=== PATIENT | female | born 1935 | race Caucasian/White ===

== ENCOUNTER → 2016-11-02 | Outpatient (CLI) | payer MEDICARE, MEDICAID ==
[~2016-11-02] MED LIST: ACET-461 PO; ASP81TEC PO; ATOR40TA70 PO; AZIT250T5 PO; BACL10TA PO; CEFD300C3 PO; CLPD75T PO; CODE118S2 PO; CYCL10TA9 PO; DEXL60CA PO; DICL100G18 TP; FERR-74 PO; GABA-488 PO; INSU100C4 SQ; INSU100I10 SC; INSU100I14 SC; INSU100V16 SQ; METF500T4 PO; METO-270 PO; MTF500T PO; MTP25TSR PO; PANT40TA2 PO; PANT40TA3 PO; PRD10T PO; PRED10TA22 PO; SIMV40TA4 PO
== END ==
LOC: LAB 10:21
PROVIDERS: ATTEND Family Medicine
DX: N39.0 Urinary tract infection, site not specified (principal)
CPT/HCPCS: 87088

== ENCOUNTER → 2016-11-17 | Outpatient (CLI) | payer MEDICARE, MEDICAID ==
--- NOTE | 2016-11-17 12:09 | Diagnostic Imaging Report ---
PROCEDURE: CT abdomen and pelvis without contrast. TECHNIQUE: Multiple contiguous axial images were obtained through the abdomen and pelvis without the use of intravenous contrast. INDICATION: Hematuria. FINDINGS: The lung bases appear clear. The liver, the spleen, and adrenals appear unremarkable for an unenhanced exam. There are multiple calcified gallstones without CT evidence of cholecystitis. The pancreatic parenchyma is largely replaced with fat with no solid mass identified. The kidneys demonstrate no hydronephrosis. There are calcifications near the renal pelvis on both sides that appears to be vascular. Also calcifications in the pelvis are likely phleboliths. Other uterine calcifications could be vascular or related to underlying small fibroids. There is diverticulosis. No diverticulitis. The appendix is slightly thickened at 9 mm in caliber without associated inflammatory changes however to suggest appendicitis. No free fluid or fluid collection in the abdomen or pelvis is seen. The abdominal aorta is slightly ectatic and demonstrates atherosclerotic calcifications with no aneurysm. No para-aortic enlarged lymph nodes seen. The osseous structures demonstrate advanced degenerative changes in the lower lumbar spine and SI joints. Also moderate bilateral hip osteoarthritis is seen. IMPRESSION: 1. No urinary tract stones or hydronephrosis. 2. Diverticulosis. No diverticulitis. 3. Cholelithiasis. Dictated by: Dictated on workstation # [id number]
== END ==
LOC: RAD 11:27
PROVIDERS: ATTEND Urology
DX: R31.9 Hematuria, unspecified (principal); K57.30 Diverticulosis of large intestine without perforation or abscess without bleeding; K80.20 Calculus of gallbladder without cholecystitis without obstruction
CPT/HCPCS: 74176

== ENCOUNTER → 2017-01-24 | Outpatient (CLI) | payer MEDICARE, MEDICAID ==
--- NOTE | 2017-01-24 10:41 | Diagnostic Imaging Report ---
EXAMINATION: Left lower extremity duplex venous ultrasound. TECHNIQUE: DVT protocol. Multiple sonographic images with color Doppler and waveform interrogation were performed of the left lower extremity veins with compression and augmentation maneuvers. INDICATION: Left leg swelling and itching. FINDINGS: The left lower extremity veins from the groin to below the knee veins were examined with normal color-flow, compressibility and waveform demonstrated. The great saphenous vein is patent. IMPRESSION: No evidence of DVT in the left lower extremity. Dictated by: Dictated on workstation # [id number]
== END ==
LOC: RAD 09:40
PROVIDERS: ATTEND Family Medicine
DX: R22.42 Localized swelling, mass and lump, left lower limb (principal); L29.9 Pruritus, unspecified

== ENCOUNTER → 2017-03-08 | Outpatient (CLI) | payer MEDICARE, MEDICAID ==
[~2017-03-08] MED LIST changes: +CATHETER FLUSH 10 ML SYR IV PRN; +REGADENOSON 0.4 MG/5 ML SYR (LEXISCAN) IV ONE
[2017-03-08 09:07] VITALS: BP 131/68
--- NOTE | 2017-03-09 14:29 | STRESS TEST ---
DATE OF SERVICE: PROCEDURE: Resting and post-regadenoson technetium-99m tetrofosmin SPECT CT imaging. ORDERING PHYSICIAN: Ana Lilia Morton MD, ZEB, FACP, FACC PRIMARY CARE PHYSICIAN: Johnny Amin DO CLINICAL DIAGNOSIS: Coronary artery disease. Baseline images were carried out after injection of 9.67 mCi of technetium-99m tetrofosmin. This was followed by 0.4 mg regadenoson and 30 mCi of technetium-99m tetrofosmin for stress imaging. The electrocardiogram showed sinus rhythm at baseline and did not change significantly with the regadenoson infusion. The patient tolerated the procedure well. Review of images at rest and following stress does not indicate any significant perfusion defects consistent with significant myocardial ischemia or infarction. Gated images show normal global left ventricular systolic function with normal regional wall motion. Left ventricular ejection fraction is calculated to be 79%. Left ventricular end-diastolic volume is 34 mL. TID is absent (0.94). CONCLUSIONS: 1. No evidence of any significant myocardial ischemia or infarction on this study. 2. Normal regional wall motion. 3. Normal global left ventricular systolic function with a calculated ejection fraction of 79%. Job ID: [id number] DocumentID: [id number] Dictated Date: 03/08/2017 15:45:01 Loading Dock Helper Date: 03/09/2017 08:30:49 Dictated By: ANA LILIA MORTON MD, ZEB, FACP, FACC,
== END ==
LOC: CARD 06:37
PROVIDERS: ATTEND Internal Medicine Cardiovascular Disease
DX: I25.10 Atherosclerotic heart disease of native coronary artery without angina pectoris (principal); I65.23 Occlusion and stenosis of bilateral carotid arteries; E11.9 Type 2 diabetes mellitus without complications; E78.4 Other hyperlipidemia; I49.5 Sick sinus syndrome; M79.89 Other specified soft tissue disorders
CPT/HCPCS: 78452; 93017

== ENCOUNTER → 2017-04-18 | Outpatient (CLI) | payer MEDICARE, MEDICAID ==
[~2017-04-18] MED LIST changes: -CATHETER FLUSH 10 ML SYR IV PRN; -REGADENOSON 0.4 MG/5 ML SYR (LEXISCAN) IV ONE
--- NOTE | 2017-04-19 14:07 | Diagnostic Imaging Report ---
EXAMINATION: Bilateral screening mammogram 2D views with tomosynthesis. The current study was also evaluated with a Computer Aided Detection (CAD) system. INDICATION: Screening. PERSONAL HISTORY: No current complaints stated on the questionnaire. COMPARISON: 04/16/2016. FINDINGS: The breasts are composed of scattered fibroglandular densities. There are scattered benign-appearing calcifications seen. Allowing for technique and positional differences, no suspicious change is seen. IMPRESSION: No significant change. ACR BI-RADS Category 2: Benign findings. Result letter will be mailed to the patient. Note: At least 10% of breast cancer is not imaged by mammography. Dictated by: Dictated on workstation # [id number]
== END ==
LOC: RAD 09:59
PROVIDERS: ATTEND Family Medicine
DX: Z12.31 Encounter for screening mammogram for malignant neoplasm of breast (principal)
CPT/HCPCS: 77067

== ENCOUNTER → 2017-10-20 | Outpatient (CLI) | payer MEDICARE, MEDICAID ==
[~2017-10-20] MED LIST changes: +ACET-168 PO; +ASCO500T6 PO; +ASPI-808 PO; +ASPI-983 PO; +AZIT250T12 PO; -AZIT250T5 PO; +CEPH-507 PO; +CNC1KV IJ; +CRAN450T9 PO; +DIVA125C10 PO; +DONE5TAB8 PO; +DVL125C PO; +ESTR42.52 VG; -FERR-74 PO; +FERR325T18 PO; +LORA10TA7 PO; +MAGN400O7 PO; +MEMA5TAB PO; -METF500T4 PO; +METF500T5 PO; -METO-270 PO; +METO-387 PO; +NAPR-915 PO; +TRAM50TA2 PO; +TRIM100T PO
--- NOTE | 2017-10-20 13:25 | Diagnostic Imaging Report ---
INDICATION: Fall and right leg pain. TIME OF EXAM: 1:08 PM Frontal and lateral views of the right tibia and fibula were obtained. FINDINGS: There are lateral compartmental degenerative changes of the knee with joint space narrowing and marginal spurring. Tibia and fibula are intact. No fractures are identified. Alignment at the ankle is normal. IMPRESSION: No acute bony abnormality is detected. Dictated by: Dictated on workstation # [id number]
--- NOTE | 2017-10-20 13:26 | Diagnostic Imaging Report ---
INDICATION: Fall and right hip pain. TIME OF EXAM: 1:06 PM FINDINGS: Two views right hip demonstrate normal femoral acetabular alignment. The femoral head and neck are intact. No fractures are seen. Right-sided rami are intact. IMPRESSION: No acute bony abnormality is detected. Dictated by: Dictated on workstation # [id number]
--- NOTE | 2017-10-20 13:29 | Diagnostic Imaging Report ---
INDICATION: Fall with right leg pain. TIME OF EXAM: 1:07 PM FINDINGS: Multiple views of the right femur were obtained. Alignment at the hip and knee is normal. No fracture is seen. There are degenerative changes of the lateral compartment of the knee. There appears to be a knee joint effusion. Soft tissues are unremarkable. IMPRESSION: No acute bony abnormality is detected. There does appear to be knee joint effusion. Dictated by: Dictated on workstation # [id number]
== END ==
LOC: RAD 12:17
PROVIDERS: ATTEND Family Medicine
DX: M79.604 Pain in right leg (principal); M25.551 Pain in right hip; W19.XXXA Unspecified fall, initial encounter
CPT/HCPCS: 73502; 73552; 73590

== ENCOUNTER → 2017-10-23 | Outpatient (CLI) | payer MEDICARE, MEDICAID ==
[2017-10-23 18:39] LABS: BILIRUBIN,URINE NEGATIVE (NEGATIVE); CLARITY,URINE SLIGHTLY CLOUDY; COLOR,URINE YELLOW; GLUCOSE, URINE (UA) NEGATIVE (NEGATIVE); KETONES,URINE NEGATIVE (NEGATIVE); LEUKOCYTE ESTERASE ,URINE 3+ (NEGATIVE); NITRITE,URINE NEGATIVE (NEGATIVE); PH,URINE 5 (5-9); PROTEIN,URINE 1+ (NEGATIVE); UROBILINOGEN,URINE 1 MG/DL (NORMAL)
[2017-10-23 18:50] LABS: BACTERIA,URINE MODERATE /HPF; WBC,URINE 25-50 /HPF
== END ==
LOC: LABNPT 18:31
PROVIDERS: ATTEND Family Medicine
DX: R82.90 Unspecified abnormal findings in urine (principal); R41.0 Disorientation, unspecified
CPT/HCPCS: 81000; 87077; 87088

== ENCOUNTER → 2017-10-26 | Outpatient (CLI) | payer MEDICARE, MEDICAID ==
[2017-10-26 12:42] LABS: HEMOGLOBIN 10.7 G/DL (11.5-16.0); MEAN PLATELET VOLUME 10.9 FL (7.4-10.4); RED BLOOD COUNT 3.82 10^6/uL (4.35-5.85); RED CELL DISTRIBUTION WIDTH 16.2 % (10.0-14.5); WHITE BLOOD COUNT 6.4 10^3/uL (4.3-11.0)
[2017-10-26 13:01] LABS: ALANINE AMINOTRANSFERASE 19 U/L (0-55); ALBUMIN 3.4 GM/DL (3.2-4.5); ALKALINE PHOSPHATASE 132 U/L (40-136); BILIRUBIN,TOTAL 0.5 MG/DL (0.1-1.0); BUN/CREATININE RATIO 20; CALCIUM 9.6 MG/DL (8.5-10.1); CARBON DIOXIDE 26 MMOL/L (21-32); CHLORIDE 102 MMOL/L (98-107); GFR ESTIMATED > 60; GLUCOSE 249 MG/DL (70-105); POTASSIUM 4.1 MMOL/L (3.6-5.0); SODIUM 141 MMOL/L (135-145); TOTAL PROTEIN 6.8 GM/DL (6.4-8.2)
--- NOTE | 2017-10-26 13:22 | Diagnostic Imaging Report ---
PROCEDURE: CT head without contrast. TECHNIQUE: Multiple contiguous axial images were obtained through the brain without the use of intravenous contrast. INDICATION: Altered mental status. COMPARISON: CT head without contrast 10/13/2017. FINDINGS: Stable dfyojidf-sd-prsmtplw generalized cerebral and cerebellar parenchymal volume loss. Moderate leukoaraiosis. No CT evidence of an acute infarct. No intracranial hemorrhage, mass effect, hydrocephalus, or extra-axial fluid collections. Osseous structures are intact. The paranasal sinuses and mastoids are clear. IMPRESSION: No acute intracranial CT findings. Dictated by: Dictated on workstation # [id number]
== END ==
LOC: RAD 12:15
PROVIDERS: ATTEND Family Medicine
DX: R41.82 Altered mental status, unspecified (principal)
CPT/HCPCS: 36415; 70450; 80053; 84443; 85027

== ENCOUNTER 2017-11-16 07:06 | Inpatient (IN) | payer MEDICARE, MEDICAID ==
[~2017-11-16] VITALS: Ht 167.6 cm; Wt 62.3 kg
[~2017-11-16 07:06] MED LIST changes: -ASPI-808 PO; -DIVA125C10 PO; -MAGN400O7 PO; -TRAM50TA2 PO
[2017-11-16 07:38] LABS: BILIRUBIN,URINE NEGATIVE (NEGATIVE); CLARITY,URINE CLEAR; COLOR,URINE YELLOW; GLUCOSE, URINE (UA) NEGATIVE (NEGATIVE); KETONES,URINE NEGATIVE (NEGATIVE); LEUKOCYTE ESTERASE ,URINE 3+ (NEGATIVE); NITRITE,URINE POSITIVE (NEGATIVE); PH,URINE 6 (5-9); PROTEIN,URINE 1+ (NEGATIVE); UROBILINOGEN,URINE NORMAL (NORMAL)
--- NOTE | 2017-11-16 07:43 | ED Fall/Injury ---
General Chief Complaint: Hip/Pelvic Problems Stated Complaint: FALL--RT KNEE & HIP PAIN Nursing Triage Note: c/o pain to right hip. Pt fell from standing position at the senior living. Possible LOC. Pt awake, alert, and active on ER arrival. Source: patient, EMS, senior living records Exam Limitations: no limitations History of Present Illness Date Seen by Provider: November 16, 2017 Time Seen by Provider: 07:07 Initial Comments This 82-year-old woman presents to the emergency room after having a fall at [facility]. She was getting up out of bed and believes she fell onto her walker. She describes feeling lightheaded prior to the fall. She may have experienced brief loss of consciousness as well. She denies striking her head, head pain, or neck pain. She is alert. She is oriented to person, place, and age. She is disoriented to month. She complains of pain in the right knee and right hip. She has abrasions and swelling noted over the right knee. EMS reports her fingerstick blood sugar was 68. Last oral intake was at 18:00 last night. Patient has had recurrent problems with UTI. She had an admission in September for treatment of urinary tract infection. She then was discharged to the senior living and was then transferred to [facility]. She has a slight laceration on the posterior scalp. Respiratory Care Program Director from [facility] states she sometimes has hypoxic episodes since her last admission. Allergies and Home Medications Allergies Coded Allergies: No Known Drug Allergies (Verified , 08/20/15) Home Medications Acetaminophen 500 Mg Tablet, 500 MG PO Q6H PRN for PAIN-MILD, (Reported) Ascorbic Acid 500 Mg Tablet, 500 MG PO DAILY, (Reported) Aspirin 81 Mg Tablet.dr, 81 MG PO DAILY, (Reported) Cranberry Fruit 450 Mg Tablet, 450 MG PO DAILY, (Reported) Cyanocobalamin 1,000 Mcg/Ml Inj, 1,000 MCG IJ Mo, (Reported) Dexlansoprazole 60 Mg bp, 60 MG PO DAILY, (Reported) Divalproex Sodium 125 Mg Cap, 125 MG PO TID Prescribed by: ANSHUL JOSEPH on 10/18/17 1200 Donepezil HCl 5 Mg Tablet, 5 MG PO HS Prescribed by: ANSHUL JOSEPH on 10/18/17 1200 Gabapentin 300 Mg Capsule, 300 MG PO TID, (Reported) Insulin Aspart 100 Unit/1 Ml Susp, SQ BIDAC, (Reported) 60-200 =0 UNITS 201-250=3 UNITS 251-300=5 UNITS 301-350=7 UNITS 351-400=9 UNITS IF GREATER THAN [address] Donna Malhotra,Hum.rec.anlog 100 Unit/1 Ml Insuln.pen, 10 UNITS SC HS, ( Reported) Loratadine 10 Mg Tablet, 10 MG PO DAILY, (Reported) Memantine HCl 5 Mg Tablet, 5 MG PO DAILY Prescribed by: ANSHUL JOSEPH on 10/18/17 1200 Metformin HCl 500 Mg Tablet, 1,000 MG PO BID, (Reported) TAKES 2 (500MG) TABLETS Metoprolol Succinate 25 Mg Tab.er.24h, 25 MG PO DAILY, (Reported) Patient Home Medication List Home Medication List Reviewed: Yes Review of Systems Constitutional: no symptoms reported Eyes: No Symptoms Reported Ears, Nose, Mouth, Throat: no symptoms reported Respiratory: see HPI Cardiovascular: see HPI Gastrointestinal: no symptoms reported Genitourinary: no symptoms reported : No Musculoskeletal: see HPI Skin: no symptoms reported Psychiatric/Neurological: See HPI Past Thozhsg-Bjgesf-Suysdk Hx Patient Social History Alcohol Use: Denies Use Recreational Drug Use: No Former Smoker, Quit: Sep 19, 1997 Recent Foreign Travel: No Contact w/Someone Who Travel: No Recent Infectious Disease Expo: No Recent Hopitalizations: Yes (yes 09/22/17 for uti) Immunizations Up To Date Tetanus Booster (TDap): Unknown PED Vaccines UTD: Yes Date of Pneumonia Vaccine: Mar 15, 2015 Date of Influenza Vaccine: Feb 18, 2015 Seasonal Allergies Seasonal Allergies: No Past Medical History Surgeries: Yes (KNEE SCOPE, CARDIAC CATHS/ ANGIOPLASTY/MULTIPLE STENTS; EGD/ COLONOSCOPY) Section, Coronary Stent, Orthopedic Respiratory: No Cardiac: Yes Chronic Edema/Swelling, Coronary Artery Disease, Heart Attack, High Cholesterol , Hypertension Neurological: Yes Dementia : No Reproductive Disorders: No Sexually Transmitted Disease: No HIV/AIDS: No Genitourinary: Yes (recurrent bladder infections) Gastrointestinal: Yes Gastroesophageal Reflux Musculoskeletal: Yes Arthritis Endocrine: Yes Diabetes, Insulin dep HEENT: Yes Loss of Vision: Bilateral Hearing Impairment: Hard of Hearing Cancer: No Psychosocial: No Integumentary: No Blood Disorders: No Adverse Reaction/Blood Tranf: No Family Medical History Alzheimer's disease 19 MOTHER G8 SISTER Diabetes mellitus G8 BROTHER Parkinson's disease 19 MOTHER Physical Exam Vital Signs Vital Signs - First Documented 11/16/17 07:22 Temp 98.0 Pulse 86 Resp 16 B/P (MAP) 103/53 (70) Pulse Ox 97 O2 Delivery Room Air Capillary Refill : Less Than 3 Seconds General Appearance: WD/WN, no apparent distress HEENT: PERRL/EOMI, normal ENT inspection, pharynx normal, other (tiny laceration/abrasion on the occipital scalp. Small superficial laceration posterior to the right ear lobe.) Neck: non-tender, supple, normal inspection Cardiovascular: regular rate, rhythm, no edema, no murmur Respiratory: lungs clear, normal breath sounds, no respiratory distress, no accessory muscle use Gastrointestinal: normal bowel sounds, non tender, soft Extremities: other (swelling, abrasion, and tenderness to the right knee. Tenderness to the left hip and pain with external rotation of the left hip. Sensation, movement, and capillary refill intact distally.) Neurologic/Psychiatric: ore trimmer II-XII nml as tested, no motor/sensory deficits, alert, normal mood/affect, other (oriented to person, place, and age but not month.) Skin: normal color, warm/dry, other (abrasions and lacerations as above) Walker Coma Score Best Eye Response: (4) Open Spontaneously Best Verbal Response: (5) Oriented Best Motor Response: (6) Obeys Commands Huber Total: 15 Progress/Results/Core Measures Results/Orders Lab Results Laboratory Tests Test 11/16/17 07:30 11/16/17 07:45 11/16/17 07:56 Range/Units Urine Color YELLOW Urine Clarity CLEAR Urine pH 6 5-9 Urine Specific Alden 1.010 L 1.016-1.022 Urine Protein 1+ H NEGATIVE Urine Glucose (UA) NEGATIVE NEGATIVE Urine Ketones NEGATIVE NEGATIVE Urine Nitrite POSITIVE H NEGATIVE Urine Bilirubin NEGATIVE NEGATIVE Urine Urobilinogen NORMAL NORMAL MG/DL Urine Leukocyte Esterase 3+ H NEGATIVE Urine RBC (Auto) NEGATIVE NEGATIVE Urine RBC NONE /HPF Urine WBC 50-100 H /HPF Urine Squamous Epithelial Cells 2-5 /HPF Urine Renal Epithelial Cells 2-5 /HPF Urine Crystals NONE /LPF Urine Bacteria MODERATE H /HPF Urine Casts NONE /LPF Urine Mucus NEGATIVE /LPF Urine Culture Indicated YES Glucometer 71 70-110 MG/DL White Blood Count 4.2 L 4.3-11.0 10^3/uL Red Blood Count 4.18 L 4.35-5.85 10^6/uL Hemoglobin 11.4 L 11.5-16.0 G/DL Hematocrit 37 35-52 % Mean Corpuscular Volume 87 80-99 FL Mean Corpuscular Hemoglobin 27 25-34 PG Mean Corpuscular Hemoglobin Concent 31 L 32-36 G/DL Red Cell Distribution Width 15.8 H 10.0-14.5 % Platelet Count 137 130-400 10^3/uL Mean Platelet Volume 10.9 H 7.4-10.4 FL Neutrophils (%) (Auto) 41 L 42-75 % Lymphocytes (%) (Auto) 47 H 12-44 % Monocytes (%) (Auto) 8 0-12 % Eosinophils (%) (Auto) 4 0-10 % Basophils (%) (Auto) 1 0-10 % Neutrophils # (Auto) 1.7 L 1.8-7.8 X 10^3 Lymphocytes # (Auto) 1.9 1.0-4.0 X 10^3 Monocytes # (Auto) 0.4 0.0-1.0 X 10^3 Eosinophils # (Auto) 0.2 0.0-0.3 10^3/uL Basophils # (Auto) 0.0 0.0-0.1 10^3/uL Sodium Level 142 135-145 MMOL/L Potassium Level 4.0 3.6-5.0 MMOL/L Chloride Level 103 98-107 MMOL/L Carbon Dioxide Level 27 21-32 MMOL/L Anion Gap 12 5-14 MMOL/L Blood Urea Nitrogen 12 7-18 MG/DL Creatinine 0.80 0.60-1.30 MG/DL Estimat Glomerular Filtration Rate > 60 BUN/Creatinine Ratio 15 Glucose Level 73 70-105 MG/DL Calcium Level 9.0 8.5-10.1 MG/DL Magnesium Level 0.9 *L 1.8-2.4 MG/DL Total Bilirubin 0.5 0.1-1.0 MG/DL Aspartate Amino Transf (AST/SGOT) 33 5-34 U/L Alanine Aminotransferase (ALT/SGPT) 11 0-55 U/L Alkaline Phosphatase 85 40-136 U/L Total Protein 6.4 6.4-8.2 GM/DL Albumin 3.3 3.2-4.5 GM/DL Valproic Acid (Depakene) Level 16.2 L 50.0-100.0 UG/ML Micro Results Microbiology 11/16/17 Urine Culture - Preliminary, Resulted Sent To [facility] My Orders Orders - MILI HSIEH MD Cbc With Automated Diff (11/16/17 07:13) Comprehensive Metabolic Panel (11/16/17 07:13) Magnesium (11/16/17 07:13) Ua Culture If Indicated (11/16/17 07:13) Accucheck Stat ONCE (11/16/17 07:13) Saline Lock/Iv-Start (11/16/17 07:13) Ekg Tracing (11/16/17 07:13) Monitor-Rhythm Ecg Trace Only (11/16/17 07:13) Knee, Right, 3 Views (11/16/17 07:13) Pelvis With Right Hip 2-3views (11/16/17 07:13) D5 1/2 Ns 1000 Ml Iv Solution (Dextrose (11/16/17 07:45) Urine Culture (11/16/17 07:30) Ct Head/Cervical Spine Wo (11/16/17 08:04) Ceftriaxone Injection (Rocephin Injectio (11/16/17 08:15) Chest 1 View, Ap/Pa Only (11/16/17 08:15) Dipht,Pertuss(Acell),Tet Adult (Boostrix (11/16/17 08:30) Magnesium 1 Gm/100 Ml Ivpb (Magnesium Barros (11/16/17 09:00) Catheter(Urinary) Care .0300, 1500 (11/16/17 08:59) Valproic Acid (11/16/17 09:00) Medications Given in ED Current Medications Medications Dose Ordered Sig/Ivet Route Start Time Stop Time Status Last Admin Dose Admin Ceftriaxone Sodium 1000 mg/ Sodium Chloride 50 ml @ 100 mls/hr ONCE ONCE IV 11/16/17 08:15 11/16/17 08:44 DC 11/16/17 09:12 100 MLS/HR Dextrose/Sodium Chloride 1,000 ml @ 125 mls/hr Q8H ONCE IV 11/16/17 07:45 11/16/17 15:44 11/16/17 07:50 125 MLS/HR Diphtheria/ Tetanus/Acell Pertussis 0.5 ml ONCE ONCE IM 11/16/17 08:30 11/16/17 08:31 DC 11/16/17 09:12 0.5 ML Magnesium Sulfate/ Dextrose 100 ml @ 100 mls/hr ONCE ONCE IV 11/16/17 09:00 11/16/17 09:59 11/16/17 09:15 100 MLS/HR Vital Signs/I&O 11/16/17 11/16/17 07:22 09:12 Temp 98.0 98.0 Pulse 86 Resp 16 B/P (MAP) 103/53 (70) Pulse Ox 97 O2 Delivery Room Air Blood Pressure Mean: 70 Progress Progress Note : Progress Note Patient was found to have a right hip fracture. Dr. Rollins was consulted for surgical assessment. Patient was also found to have urinary tract infection and hypomagnesemia which may have contributed to her fall. Patient gives a questionable history of syncope and loss of consciousness. I suspect her above conditions along with hypoglycemia contributed to this. Her blood sugar by EMS was only 68 and she had not yet eaten this morning. Patient remained alert throughout her ER stay. She was given Rocephin for treatment of her urinary tract infection. A Boostrix tetanus immunization was administered. 1 g of magnesium sulfate was administered for treatment of hypomagnesemia. A liter of D51/2 normal saline was started running at about 100 mL per hour to maintain her blood sugars. Initial ECG Impression Date: November 16, 2017 Initial ECG Impression Time: 07:58 Initial ECG Rate: 82 Initial ECG Rhythm: Normal Sinus Initial ECG Intervals: Normal Comment Normal sinus rhythm with no ST elevation or depression. No abnormal intervals or axis deviation. Diagnostic Imaging Diagonstic Imaging: CT Plain Films/CT/US/NM/MRI: c-spine Comments CT head and cervical spine viewed by me and report reviewed. See report below: NAME: [facility] REC#: [id number] PT STATUS: REG ER : 1935 PHYSICIAN: MILI HSIEH MD ADMIT DATE: 11/16/17/ER Draft Date of Exam:11/16/17 CT HEAD/CERVICAL SPINE WO PROCEDURE: CT head and CT cervical spine without contrast. TECHNIQUE: Multiple contiguous axial images were obtained through the brain and cervical spine without the use of intravenous contrast. Sagittal and coronal reformations through the cervical spine were then performed. INDICATION: Fall. COMPARISON: Comparison is made with prior head CT from 10/26/2017. FINDINGS: CT head: Ventricles and sulci are consistent with the patient's age. There is moderate periventricular hypodensity noted consistent with senescent change. No sulcal effacement is identified. There is no midline shift. No acute intra-axial or extra-axial hemorrhage is seen. Cisterns are patent. Visualized paranasal sinuses are clear. IMPRESSION: Senescent changes. No acute intracranial process is detected. CT cervical spine: There is reversal of the normal cervical lordotic curvature. Minimal anterolisthesis of C3 on C4 with retrolisthesis of C4 on C5 and C5 on C6 is noted. There is severe degenerative disc disease at C4-C5, C5-C6 and C6-C7 levels with disc space narrowing and marginal spurring. There is multilevel facet arthropathy. No fractures are identified. Prevertebral tissues are normal. Odontoid is intact. IMPRESSION: Cervical spondylosis. No acute bony abnormality is detected. Dictated on workstation # [id number] Dict: 11/16/1737 Trans: 11/16/17 0847 [facility] [id number] Interpreted by: UNRULY TREVIÑO MD Diagonstic Imaging: Xray Plain Films/CT/US/NM/MRI: chest Comments Chest x-ray viewed by me and report reviewed. See report below: NAME: [facility] REC#: [id number] PT STATUS: REG ER : 1935 PHYSICIAN: MILI HSIEH MD ADMIT DATE: 11/16/17/ER Draft Date of Exam:11/16/17 CHEST 1 VIEW, AP/PA ONLY INDICATION: Fall. TIME OF EXAM: 8:40 AM Comparison is made with prior chest radiograph from 10/13/2017. FINDINGS: The heart size is normal. Lungs appear clear. No infiltrate or effusion is seen. There is no pneumothorax. IMPRESSION: No acute abnormality is detected. Dictated on workstation # [id number] Dict: 11/16/17 0829 Trans: 11/16/1737 [id number] Interpreted by: UNRULY TREVIÑO MD Plain Films/CT/US/NM/MRI: pelvis, hip Comments Hip and pelvis x-ray viewed by me and report reviewed. See report below: NAME: [facility] REC#: [id number] PT STATUS: REG ER : 1935 PHYSICIAN: MILI HSIEH MD ADMIT DATE: 11/16/17/ER Draft Date of Exam:11/16/17 PELVIS WITH RIGHT HIP 2-3VIEWS INDICATION: Fall with pelvic pain and right hip pain. Time of exam 8:35 AM Femoral acetabular alignment is normal. There is a lucency extending through the femoral neck subcapital location suggestive of a fracture. No displacement is seen. Rami appear intact. Left hip appears intact. IMPRESSION: Findings consistent with right femoral neck fracture. Dictated on workstation # [id number] Dict: 11/16/17 0832 Trans: 11/16/17 0838 [facility] [id number] Interpreted by: UNRULY TREVIÑO MD Diagonstic Imaging: Xray Plain Films/CT/US/NM/MRI: knee Comments X-ray of the right knee viewed by me and report reviewed. See report below: NAME: [facility] REC#: [id number] PT STATUS: REG ER : 1935 PHYSICIAN: MILI HSIEH MD ADMIT DATE: 11/16/17/ER Draft Date of Exam:11/16/17 KNEE, RIGHT, 3 VIEWS INDICATION: Fall with right knee pain. Time of exam: 8:37 AM 3 views of the right knee demonstrate tricompartmental degenerative change, greatest involving the lateral compartment where there is significant joint space narrowing and marginal spurring. No fracture, dislocation or effusion is detected. There is generalized demineralization. IMPRESSION: Degenerative change. No acute bony abnormality is detected. Dictated on workstation # [id number] Dict: 11/16/17 0831 Trans: 11/16/17 0835 [facility] [id number] Interpreted by: UNRULY TREVIÑO MD Departure Communication (Admissions) Time/Spoke to Admitting Phy: 08:35 Dr. Sanchez Time/Spoke to Consulting Phy: 09:10 Dr. Rollins Impression Primary Impression: Closed right hip fracture Qualified Codes: S72.001A - Fracture of unspecified part of neck of right femur, initial encounter for closed fracture Additional Impressions: Fall on same level Qualified Codes: W18.30XA - Fall on same level, unspecified, initial encounter Urinary tract infection Qualified Codes: N39.0 - Urinary tract infection, site not specified Hypomagnesemia Hypokalemia Laceration of scalp Qualified Codes: S01.01XA - Laceration without foreign body of scalp, initial encounter Abrasion, right knee, initial encounter Syncope Qualified Codes: R55 - Syncope and collapse Disposition: 09 ADMITTED INPATIENT Condition: Improved Admissions Decision to Admit Reason: Admit from ER (Trauma) Decision to Admit/Date: November 16, 2017 Time/Decision to Admit Time: 08:30 Departure-Patient Inst. Referrals: TU SANCHEZ DO (PCP/Family) Primary Care Physician MILI HSIEH MD November 16, 2017 07:43
[2017-11-16] MEDS ORDERED: D5 1/2 NS 1000 ML IV SOLUTION 1,000 ML IV ONE (07:45)
[2017-11-16 07:51] LABS: BACTERIA,URINE MODERATE /HPF; WBC,URINE 50-100 /HPF
[2017-11-16 08:11] LABS: BASOPHILS % (AUTO) 1 % (0-10); EOSINOPHILS # (AUTO) 0.2 10^3/uL (0.0-0.3); EOSINOPHILS % (AUTO) 4 % (0-10); HEMATOCRIT 37 % (35-52); HEMOGLOBIN 11.4 G/DL (11.5-16.0); LYMPHOCYTES # (AUTO) 1.9 X 10^3 (1.0-4.0); LYMPHOCYTES % (AUTO) 47 % (12-44); MEAN CORPUSCULAR HEMOGLOBIN 27 PG (25-34); MEAN CORPUSCULAR HGB CONC 31 G/DL (32-36); MEAN CORPUSCULAR VOLUME 87 FL (80-99); MEAN PLATELET VOLUME 10.9 FL (7.4-10.4); MONOCYTES # (AUTO) 0.4 X 10^3 (0.0-1.0); MONOCYTES % (AUTO) 8 % (0-12); NEUTROPHILS # (AUTO) 1.7 X 10^3 (1.8-7.8); NEUTROPHILS % (AUTO) 41 % (42-75); PLATELET COUNT 137 10^3/uL (130-400); RED BLOOD COUNT 4.18 10^6/uL (4.35-5.85); RED CELL DISTRIBUTION WIDTH 15.8 % (10.0-14.5); WHITE BLOOD COUNT 4.2 10^3/uL (4.3-11.0)
[2017-11-16] MEDS ORDERED: cefTRIAXone INJECTION 1,000 MG in NS (IVPB) 50 ML IV ONE (08:15)
[2017-11-16] MEDS ORDERED: TETANUS,DIPTH,PERTUSS P/F (BOOSTRIX) 0.5 ML VIAL IM ONE (08:30)
[2017-11-16 08:35] LABS: ALANINE AMINOTRANSFERASE 11 U/L (0-55); ALBUMIN 3.3 GM/DL (3.2-4.5); ALKALINE PHOSPHATASE 85 U/L (40-136); BILIRUBIN,TOTAL 0.5 MG/DL (0.1-1.0); BUN/CREATININE RATIO 15; CARBON DIOXIDE 27 MMOL/L (21-32); CHLORIDE 103 MMOL/L (98-107); GFR ESTIMATED > 60; GLUCOSE 73 MG/DL (70-105); SODIUM 142 MMOL/L (135-145); TOTAL PROTEIN 6.4 GM/DL (6.4-8.2)
--- NOTE | 2017-11-16 08:35 | Diagnostic Imaging Report ---
INDICATION: Fall with right knee pain. Time of exam: 8:37 AM 3 views of the right knee demonstrate tricompartmental degenerative change, greatest involving the lateral compartment where there is significant joint space narrowing and marginal spurring. No fracture, dislocation or effusion is detected. There is generalized demineralization. IMPRESSION: Degenerative change. No acute bony abnormality is detected. Dictated by: Dictated on workstation # [id number]
[2017-11-16 08:38] LABS: MAGNESIUM 0.9 MG/DL (1.8-2.4)
--- NOTE | 2017-11-16 08:38 | Diagnostic Imaging Report ---
INDICATION: Fall. TIME OF EXAM: 8:40 AM Comparison is made with prior chest radiograph from 10/13/2017. FINDINGS: The heart size is normal. Lungs appear clear. No infiltrate or effusion is seen. There is no pneumothorax. IMPRESSION: No acute abnormality is detected. Dictated by: Dictated on workstation # [id number]
--- NOTE | 2017-11-16 08:39 | Diagnostic Imaging Report ---
INDICATION: Fall with pelvic pain and right hip pain. Time of exam 8:35 AM Femoral acetabular alignment is normal. There is a lucency extending through the femoral neck subcapital location suggestive of a fracture. No displacement is seen. Rami appear intact. Left hip appears intact. IMPRESSION: Findings consistent with right femoral neck fracture. Dictated by: Dictated on workstation # [id number]
--- NOTE | 2017-11-16 08:47 | Diagnostic Imaging Report ---
PROCEDURE: CT head and CT cervical spine without contrast. TECHNIQUE: Multiple contiguous axial images were obtained through the brain and cervical spine without the use of intravenous contrast. Sagittal and coronal reformations through the cervical spine were then performed. INDICATION: Fall. COMPARISON: Comparison is made with prior head CT from 10/26/2017. FINDINGS: CT head: Ventricles and sulci are consistent with the patient's age. There is moderate periventricular hypodensity noted consistent with senescent change. No sulcal effacement is identified. There is no midline shift. No acute intra-axial or extra-axial hemorrhage is seen. Cisterns are patent. Visualized paranasal sinuses are clear. IMPRESSION: Senescent changes. No acute intracranial process is detected. CT cervical spine: There is reversal of the normal cervical lordotic curvature. Minimal anterolisthesis of C3 on C4 with retrolisthesis of C4 on C5 and C5 on C6 is noted. There is severe degenerative disc disease at C4-C5, C5-C6 and C6-C7 levels with disc space narrowing and marginal spurring. There is multilevel facet arthropathy. No fractures are identified. Prevertebral tissues are normal. Odontoid is intact. IMPRESSION: Cervical spondylosis. No acute bony abnormality is detected. Dictated by: Dictated on workstation # [id number]
[2017-11-16] MEDS ORDERED: MAGNESIUM 1 GM/100 ML IVPB 100 ML IV ONE (09:00)
--- OUTSIDE RECORDS SUMMARY | 2017-11-16 10:03 | XMS REPORT | Continuity of Care Document ---
Author Author [facility] Organization [facility] Address Unknown Phone Unavailable Allergies Active Description Code Type Severity Reaction Onset Reported/Identified Relationship to Patient Clinical Status Yes No Known Drug Allergies [id number] Drug Allergy Unknown N/A 08/20/2015 Medications There is no data. Problems Date Dx Coded Attending Type Code Diagnosis Diagnosed By 09/15/2012 Ot 250.00 DIAB WINSOME WO COMPL, TYPE II OR UNSPEC TY 09/15/2012 Ot 272.4 HYPERLIPIDEMIA NEC/NOS 09/15/2012 Ot 287.5 THROMBOCYTOPENIA NOS 09/15/2012 Ot 414.01 CORONARY ATHEROSCLEROSIS OF [place] CORON 09/15/2012 Ot 414.4 CORONARY ATHEROSCLEROSIS DUE TO CALCIFIE 09/15/2012 Ot 433.10 CAROTID ARTERY OCCLUSION W O CEREBRAL IN 09/15/2012 Ot 530.81 ESOPHAGEAL REFLUX 09/15/2012 Ot V45.82 PERCUTANEOUS TRANSLUM CORON ANGIOPLASTY 09/15/2012 Ot V58.66 LONG-TERM ( CURRENT) USE OF ASPIRIN 09/15/2012 Ot V58.67 LONG-TERM ( CURRENT) USE OF INSULIN 09/15/2012 Ot V58.69 OTH MED,LT, CURRENT USE 05/03/2014 TU SANCHEZ DO Ot V76.12 06/17/2014 TU SANCHEZ DO Ot 723.1 08/12/2014 Ot V76.12 08/12/2014 Ot 414.01 08/12/2014 Ot 433.30 08/12/2014 Ot 396.3 08/12/2014 Ot 397.0 08/12/2014 Ot 414.01 08/12/2014 Ot V76.12 08/12/2014 Ot 433.30 08/12/2014 Ot V76.12 08/12/2014 Ot 719.47 08/12/2014 Ot V76.12 08/12/2014 Ot 414.01 08/12/2014 TU SANCHEZ DO Ot V76.12 08/12/2014 TU SANCHEZ DO Ot V76.12 08/12/2014 TU SANCHEZ DO Ot 723.1 08/15/2014 Ot 041.49 08/15/2014 Ot 250.02 08/15/2014 Ot 275.49 08/15/2014 Ot 276.2 08/15/2014 Ot 401.9 08/15/2014 Ot 412 08/15/2014 Ot 414.01 08/15/2014 Ot 491.21 08/15/2014 Ot 518.81 08/15/2014 Ot 599.0 08/15/2014 Ot 712.36 08/15/2014 Ot 715.96 08/15/2014 Ot 719.41 08/15/2014 Ot 780.97 08/15/2014 Ot E935.2 08/15/2014 Ot V45.82 08/15/2014 Ot V58.67 08/15/2014 Ot 041.49 08/15/2014 Ot 250.02 08/15/2014 Ot 275.49 08/15/2014 Ot 276.2 08/15/2014 Ot 401.9 08/15/2014 Ot 412 08/15/2014 Ot 414.01 08/15/2014 Ot 491.21 08/15/2014 Ot 518.81 08/15/2014 Ot 599.0 08/15/2014 Ot 712.36 08/15/2014 Ot 715.96 08/15/2014 Ot 719.41 08/15/2014 Ot 780.97 08/15/2014 Ot E935.2 08/15/2014 Ot V45.82 08/15/2014 Ot V58.67 08/20/2014 Ot 041.49 OTHER AND UNSPECIFIED ESCHERICHIA COLI [ 08/20/2014 Ot 250.02 DIAB WINSOME WO COMPL, TYPE II OR UNSPEC TY 08/20/2014 Ot 275.49 OTH DISORD/ CALCIUM METABOLISM 08/20/2014 Ot 276.2 ACIDOSIS 08/20/2014 Ot 285.9 ANEMIA NOS 08/20/2014 Ot 401.9 HYPERTENSION NOS 08/20/2014 Ot 412 OLD MYOCARDIAL INFARCT 08/20/2014 Ot 414.01 CORONARY ATHEROSCLEROSIS OF [place] CORON 08/20/2014 Ot 491.21 OBSTR CHRONIC BRONCHITIS, W (ACUTE) EXAC 08/20/2014 Ot 518.81 ACUTE RESPIRATORY FAILURE 08/20/2014 Ot 599.0 URIN TRACT INFECTION NOS 08/20/2014 Ot 712.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-L/LEG 08/20/2014 Ot 715.96 OSTEOARTHROS NOS-L/LEG 08/20/2014 Ot 719.41 JOINT PAIN- SHLDER 08/20/2014 Ot 726.2 SHOULDER REGION DIS NEC 08/20/2014 Ot 780.97 ALTERED MENTAL STATUS 08/20/2014 Ot E935.2 ADV EFF OPIATES 08/20/2014 Ot V45.82 PERCUTANEOUS TRANSLUM CORON ANGIOPLASTY 08/20/2014 Ot V58.67 LONG-TERM ( CURRENT) USE OF INSULIN 11/18/2014 Ot 414.01 11/18/2014 Ot 433.30 11/18/2014 Ot 396.3 11/18/2014 Ot 397.0 11/18/2014 Ot 414.01 11/18/2014 Ot V76.12 11/18/2014 Ot 433.30 11/18/2014 Ot V76.12 11/18/2014 Ot 719.47 11/18/2014 Ot V76.12 11/18/2014 Ot 414.01 11/18/2014 TU SANCHEZ DO Ot V76.12 11/18/2014 TU SANCHEZ DO Ot V76.12 11/18/2014 TU SANCHEZ DO Ot 723.1 12/11/2014 PETROS CLEMONSC, JUNG FACP CCDS Ot 250.00 12/11/2014 PETROS VELÁZQUEZ FACC, JUNG FACP CCDS Ot 414.9 12/11/2014 PETROS VELÁZQUEZ FACC, ALI FACP CCDS Ot 447.9 12/11/2014 PETROS CLEMONSC, JUNG FACP CCDS Ot 530.81 12/13/2014 PETROS CLEMONSC, ALI FACP CCDS Ot 250.00 12/13/2014 PETROS VELÁZQUEZ FACC, ALI FACP CCDS Ot 414.9 12/13/2014 PETROS VELÁZQUEZ FACC, ALI FACP CCDS Ot 447.9 12/13/2014 PETROS CLEMONSC, ALI FACP CCDS Ot 530.81 12/24/2014 PETROS CLEMONSC, ALI FACP CCDS Ot 250.00 12/24/2014 PETROS CLEMONSC, ALI FACP CCDS Ot 414.9 12/24/2014 PETROS CLEMONSC, ALI FACP CCDS Ot 447.9 12/24/2014 PETROS CLEMONSC, ALI FACP CCDS Ot 530.81 04/17/2015 BETHLENDER DO, TU Vyas Ot Z12.31 05/07/2015 BETHLENDER DO, TU Vyas Ot Z12.31 05/20/2015 CECYDER DO, TU Vyas Ot Z12.31 08/20/2015 VJ VILLATORO MD, Ot E11.9 TYPE 2 DIABETES MELLITUS WITHOUT COMPLIC 08/20/2015 SHAUNA VELÁZQUEZ, VJ Nichols K21.0 GASTRO-ESOPHAGEAL REFLUX DISEASE WITH ES 08/20/2015 SHAUNA VELÁZQUEZ, VJ Nichols K29.70 GASTRITIS, UNSPECIFIED, WITHOUT BLEEDING 08/20/2015 SHAUNA VELÁZQUEZ, VJ Ot K64.1 SECOND DEGREE HEMORRHOIDS 09/03/2015 SHAUNA VELÁZQUEZ, VJ Nichols D64.9 09/03/2015 SHAUNA VELÁZQUEZ, VJ Nichols K92.1 09/03/2015 VJ VILLATORO MD, Ot Z01.818 09/22/2015 CASSIE DOPRO S Ot E11.9 09/22/[address] [facility] Ot E78.5 09/22/[address] [facility] S Ot G47.00 09/22/[address] [facility] S Ot I10 09/22/[address] [facility], PRO S Ot I25.10 09/22/[address] [facility], [facility] S Ot I25.2 09/22/[address] [facility], [facility] S Ot J18.9 09/22/[address] [facility], [facility] S Ot J20.9 09/22/[address] [facility], [facility] S Ot M54.2 09/22/[address] [facility], [facility] S Ot M54.9 09/22/[address] [facility], PRO S Ot R09.02 09/22/[address] [facility], [facility] S Ot Z79.4 09/22/[address] [facility], [facility] S Ot Z87.891 09/22/2015 CARND DO, PRO S Ot Z95.5 09/22/[address] [facility] S Ot E11.9 TYPE 2 DIABETES MELLITUS WITHOUT COMPLIC 09/22/2015 HARSHADJUNG , PRO [place] Ot E78.5 HYPERLIPIDEMIA, UNSPECIFIED 09/22/2015 CASSIE PINEDA PRO [place] Ot G47.00 INSOMNIA, UNSPECIFIED 09/22/2015 HARSHAD PRO [place] Ot I10 ESSENTIAL (PRIMARY) HYPERTENSION 09/22/2015 HARSHAD PRO [place] Ot I25.10 ATHSCL HEART DISEASE OF [place] CORONARY 09/22/2015 CARBANNER PRO [place] Ot I25.2 OLD MYOCARDIAL INFARCTION 09/22/2015 CARBANNER PRO [place] Ot J18.9 PNEUMONIA, UNSPECIFIED ORGANISM 09/22/2015 HARSHAD PRO [place] Ot J20.9 ACUTE BRONCHITIS, UNSPECIFIED 09/22/2015 CARBANNER PRO [place] Ot M54.2 CERVICALGIA 09/22/2015 CARBANNER PRO [place] Ot M54.9 09/22/2015 CARBANNER PRO [place] Ot R09.02 HYPOXEMIA 09/22/2015 HARSHAD PRO [place] Ot Z79.4 BELT LACER (CURRENT) USE OF INSULIN 09/22/2015 HARSHAD PRO [place] Ot Z87.891 PERSONAL HISTORY OF NICOTINE DEPENDENCE 09/22/2015 HARSHAD PRO [place] Ot Z95.5 PRESENCE OF CORONARY ANGIOPLASTY IMPLANT 10/01/2015 Ot N28.9 10/02/2015 TU SANCHEZ DO Ot J44.9 10/03/2015 TU SANCHEZ DO Ot J44.9 CHRONIC OBSTRUCTIVE PULMONARY DISEASE, U 10/15/2015 TU SANCHEZ DO Ot E04.1 NONTOXIC SINGLE THYROID NODULE 10/20/2015 TU SANCHEZ DO Ot E04.1 NONTOXIC SINGLE THYROID NODULE 10/22/2015 TU SANCHEZ DO Ot E04.1 NONTOXIC SINGLE THYROID NODULE 10/22/2015 TU SANCHEZ DO Ot E04.1 NONTOXIC SINGLE THYROID NODULE 10/22/2015 [facility] TU PINEDA Ot J44.9 CHRONIC OBSTRUCTIVE PULMONARY DISEASE, U 10/22/2015 Ot N28.9 DISORDER OF KIDNEY AND URETER, UNSPECIFI 10/29/2015 TU SANCHEZ DO Ot E04.1 NONTOXIC SINGLE THYROID NODULE 10/29/2015 TU SANCHEZ DO Ot J44.9 CHRONIC OBSTRUCTIVE PULMONARY DISEASE, U 11/05/2015 TU SANCHEZ DO Ot E04.1 NONTOXIC SINGLE THYROID NODULE 11/06/2015 TU SANCHEZ DO Ot J44.9 CHRONIC OBSTRUCTIVE PULMONARY DISEASE, U 11/11/2015 TU SANCHEZ DO Ot E04.1 NONTOXIC SINGLE THYROID NODULE 11/11/2015 Ot N28.9 DISORDER OF KIDNEY AND URETER, UNSPECIFI 11/13/2015 TU SANCHEZ DO Ot E04.1 NONTOXIC SINGLE THYROID NODULE 11/19/2015 TU SANCHEZ DO Ot E04.1 NONTOXIC SINGLE THYROID NODULE 11/28/2015 TU SANCHEZ DO Ot E04.1 NONTOXIC SINGLE THYROID NODULE 04/16/2016 Ot V76.12 OTH SCREEN MAMMO-MALIGN NEOPLASM OF [place] 04/16/2016 Ot 719.47 JOINT PAIN- ANKLE 04/16/2016 Ot V76.12 OTH SCREEN MAMMO-MALIGN NEOPLASM OF [place] 04/16/2016 Ot 414.01 CORONARY ATHEROSCLEROSIS OF [place] CORON 04/16/2016 TU SANCHEZ DO Ot V76.12 OTH SCREEN MAMMO-MALIGN NEOPLASM OF [place] 04/16/2016 TU SANCHEZ DO Ot V76.12 OTH SCREEN MAMMO-MALIGN NEOPLASM OF [place] 04/16/2016 TU SANCHEZ DO Ot 723.1 CERVICALGIA 04/16/2016 PETROS VELÁZQUEZ FAC, ALI FACP CCDS Ot 250.00 DIAB WINSOME WO COMPL, TYPE II OR UNSPEC TY 04/16/2016 PETROS VELÁZQUEZ FACC, ALI FACP CCDS Ot 414.9 CHR ISCHEMIC HRT DIS NOS 04/16/2016 PETROS VELÁZQUEZ FACC, ALI FACP CCDS Ot 447.9 ARTERIAL DISEASE NOS 04/16/2016 PETROS VELÁZQUEZ FACC, ALI FACP CCDS Ot 530.81 ESOPHAGEAL REFLUX 04/16/2016 TU SANCHEZ DO Ot Z12.31 ENCNTR SCREEN MAMMOGRAM FOR MALIGNANT NE 04/16/2016 VJ VILLATORO MD Ot D64.9 ANEMIA, UNSPECIFIED 04/16/2016 VJ VILLATORO MD Ot K92.1 MELENA 04/16/2016 VJ VILLATORO MD Ot Z01.818 ENCOUNTER FOR OTHER PREPROCEDURAL EXAMIN 04/16/2016 LAURA TU PINEDA Ot J44.9 CHRONIC OBSTRUCTIVE PULMONARY DISEASE, U 04/16/2016 Ot N28.9 DISORDER OF KIDNEY AND URETER, UNSPECIFI 04/16/2016 CECYYULI TU PINEDA Ot E04.1 NONTOXIC SINGLE THYROID NODULE 04/16/2016 CECYYULI TU PINEDA Ot E04.1 NONTOXIC SINGLE THYROID NODULE 04/19/2016 Ot V76.12 OTH SCREEN MAMMO-MALIGN NEOPLASM OF [place] 04/19/2016 Ot 719.47 JOINT PAIN- ANKLE 04/19/2016 Ot V76.12 OTH SCREEN MAMMO-MALIGN NEOPLASM OF [place] 04/19/2016 Ot 414.01 CORONARY ATHEROSCLEROSIS OF [place] CORON 04/19/2016 UT SANCHEZ DO Ot V76.12 OTH SCREEN MAMMO-MALIGN NEOPLASM OF [place] 04/19/2016 CECYYULI TU PINEDA Ot V76.12 OTH SCREEN MAMMO-MALIGN NEOPLASM OF [place] 04/19/2016 TU SANCHEZ DO Ot 723.1 CERVICALGIA 04/19/2016 PETROS VELÁZQUEZ FAC, ALI FACP CCDS Ot 250.00 DIAB WINSOME WO COMPL, TYPE II OR UNSPEC TY 04/19/2016 PETROS VELÁZQUEZ FACC, ALI FACP CCDS Ot 414.9 CHR ISCHEMIC HRT DIS NOS 04/19/2016 PETROS VELÁZQUEZ FACC, ALI FACP CCDS Ot 447.9 ARTERIAL DISEASE NOS 04/19/2016 PETROS VELÁZQUEZ FAC, ALI FACP CCDS Ot 530.81 ESOPHAGEAL REFLUX 04/19/2016 TU SANCHEZ DO Ot Z12.31 ENCNTR SCREEN MAMMOGRAM FOR MALIGNANT NE 04/19/2016 VJ VILLATORO MD Ot D64.9 ANEMIA, UNSPECIFIED 04/19/2016 VJ VILLATORO MD Ot K92.1 MELENA 04/19/2016 VJ VILLATORO MD Ot Z01.818 ENCOUNTER FOR OTHER PREPROCEDURAL EXAMIN 04/19/2016 TU SANCHEZ DO Ot J44.9 CHRONIC OBSTRUCTIVE PULMONARY DISEASE, U 04/19/2016 Ot N28.9 DISORDER OF KIDNEY AND URETER, UNSPECIFI 04/19/2016 TU SANCHEZ DO Ot E04.1 NONTOXIC SINGLE THYROID NODULE 04/19/2016 GELLENDER DO, TU Vyas Ot E04.1 NONTOXIC SINGLE THYROID NODULE 04/19/2016 GELLENDER DO, TU Vyas Ot Z12.31 ENCNTR SCREEN MAMMOGRAM FOR MALIGNANT NE 04/20/2016 GELLENDER DO, TU Vyas Ot Z12.31 ENCNTR SCREEN MAMMOGRAM FOR MALIGNANT NE 04/27/2016 GELLENDER DO, TU Vyas Ot Z12.31 ENCNTR SCREEN MAMMOGRAM FOR MALIGNANT NE 06/22/2016 GELLENDER DO, TU Vyas Ot Z12.31 ENCNTR SCREEN MAMMOGRAM FOR MALIGNANT NE 11/03/2016 GELLENDER DO, TU Vyas Ot N39.0 URINARY TRACT INFECTION, SITE NOT SPECIF 11/23/2016 EMELINA AYERS MD Ot K57.30 DVRTCLOS OF LG INT W/O PERFORATION OR AB 11/23/2016 EMELINA AYERS MD Ot K80.20 CALCULUS OF GALLBLADDER W/O CHOLECYSTITI 11/23/2016 EMELINA AYERS MD Ot R31.9 HEMATURIA, UNSPECIFIED 11/29/2016 GELLENDER DO, TU Lilliam Ot N39.0 URINARY TRACT INFECTION, SITE NOT SPECIF 12/07/2016 EMELINA AYERS MD Ot K57.30 DVRTCLOS OF LG INT W/O PERFORATION OR AB 12/07/2016 EMELINA AYERS MD Ot K80.20 CALCULUS OF GALLBLADDER W/O CHOLECYSTITI 12/07/2016 EMELINA AYERS MD Ot R31.9 HEMATURIA, UNSPECIFIED 12/10/2016 GELLENDER DO, TU Lilliam Ot N39.0 URINARY TRACT INFECTION, SITE NOT SPECIF 12/14/2016 EMELINA AYERS MD Ot K57.30 DVRTCLOS OF LG INT W/O PERFORATION OR AB 12/14/2016 EMELINA AYERS MD Ot K80.20 CALCULUS OF GALLBLADDER W/O CHOLECYSTITI 12/14/2016 EMELINA AYERS MD Ot R31.9 HEMATURIA, UNSPECIFIED 02/16/2017 GELLENDER DO, TU Lilliam Ot L29.9 PRURITUS, UNSPECIFIED 02/16/2017 GELLENDER DO, TU Vyas Ot R22.42 LOCALIZED SWELLING, MASS AND LUMP, LEFT 03/14/2017 PETROS VELÁZUQEZ FACC, ALI FACP CCDS Ot E11.9 TYPE 2 DIABETES MELLITUS WITHOUT COMPLIC 03/14/2017 PETROS VELÁZQUEZ FACC, ALI FACP CCDS Ot E78.4 OTHER HYPERLIPIDEMIA 03/14/2017 PETROS VELÁZQUEZ FACC, ALI FACP CCDS Ot I25.10 ATHSCL HEART DISEASE OF [place] CORONARY 03/14/2017 PETROS VELÁZQUEZ FACC, ALI FACP CCDS Ot I49.5 SICK SINUS SYNDROME 03/14/2017 PETROS VELÁZQUEZ FACC, ALI FACP CCDS Ot I65.23 OCCLUSION AND STENOSIS OF [place] 03/14/2017 PETROS VELÁZQUEZ FACC, ALI FACP CCDS Ot M79.89 OTHER SPECIFIED SOFT TISSUE DISORDERS 03/15/2017 PETROS VELÁZQUEZ FACC, ALI FACP CCDS Ot E11.9 TYPE 2 DIABETES MELLITUS WITHOUT COMPLIC 03/15/2017 PETROS CLEMONSC, ALI FACP CCDS Ot E78.4 OTHER HYPERLIPIDEMIA 03/15/2017 PETROS VELÁZQUEZ FACC, ALI FACP CCDS Ot I25.10 ATHSCL HEART DISEASE OF [place] CORONARY 03/15/2017 PETROS CLEMONSC, ALI FACP CCDS Ot I49.5 SICK SINUS SYNDROME 03/15/[address] [facility] CCDS Ot I65.23 OCCLUSION AND STENOSIS OF [place] 03/15/[address] [facility] FACP CCDS Ot M79.89 OTHER SPECIFIED SOFT TISSUE DISORDERS 03/15/2017 PETROS VELÁZQUEZ FACC, ALI FACP CCDS Ot E11.9 TYPE 2 DIABETES MELLITUS WITHOUT COMPLIC 03/15/2017 PETROS CLEMONSC, ALI FACP CCDS Ot E78.4 OTHER HYPERLIPIDEMIA 03/15/2017 PETROS CLEMONS, ALI FACP CCDS Ot I25.10 ATHSCL HEART DISEASE OF [place] CORONARY 03/15/2017 PETROS CLEMONS, ALI FACP CCDS Ot I49.5 SICK SINUS SYNDROME 03/15/2017 PETROS VELÁZQUEZ FACC, ALI FACP CCDS Ot I65.23 OCCLUSION AND STENOSIS OF [place] 03/15/2017 PETROS VELÁZQUEZ FACC, ALI FACP CCDS Ot M79.89 OTHER SPECIFIED SOFT TISSUE DISORDERS 03/16/2017 PETROS CLEMONSC, ALI FACP CCDS Ot E11.9 TYPE 2 DIABETES MELLITUS WITHOUT COMPLIC 03/16/2017 PETROS CLEMONSC, ALI FACP CCDS Ot E78.4 OTHER HYPERLIPIDEMIA 03/16/2017 PETROS VELÁZQUEZ FACC, ALI FACP CCDS Ot I25.10 ATHSCL HEART DISEASE OF [place] CORONARY 03/16/2017 PETROS VELÁZQUEZ FACC, ALI FACP CCDS Ot I49.5 SICK SINUS SYNDROME 03/16/2017 PETROS VELÁZQUEZ FACC, ALI FACP CCDS Ot I65.23 OCCLUSION AND STENOSIS OF [place] 03/16/2017 PETROS VELÁZQUEZ FACC, ALI FACP CCDS Ot M79.89 OTHER SPECIFIED SOFT TISSUE DISORDERS 03/16/2017 PETROS VELÁZQUEZ FACC, ALI FACP CCDS Ot E11.9 TYPE 2 DIABETES MELLITUS WITHOUT COMPLIC 03/16/2017 PETROS VELÁZQUEZ FACC, ALI FACP CCDS Ot E78.4 OTHER HYPERLIPIDEMIA 03/16/2017 PETROS VELÁZQUEZ FACC, ALI FACP CCDS Ot I25.10 ATHSCL HEART DISEASE OF [place] CORONARY 03/16/2017 PETROS VELÁZQUEZ FACC, ALI FACP CCDS Ot I49.5 SICK SINUS SYNDROME 03/16/2017 PETROS VELÁZQUEZ FACC, ALI FACP CCDS Ot I65.23 OCCLUSION AND STENOSIS OF [place] 03/16/2017 PETROS CLEMONSC, ALI FACP CCDS Ot M79.89 OTHER SPECIFIED SOFT TISSUE DISORDERS 03/31/2017 PETROS VELÁZQUEZ FACC, ALI FACP CCDS Ot E11.9 TYPE 2 DIABETES MELLITUS WITHOUT COMPLIC 03/31/2017 PETROS VELÁZQUEZ FACC, ALI FACP CCDS Ot E78.4 OTHER HYPERLIPIDEMIA 03/31/2017 PETROS CLEMONSC, ALI FACP CCDS Ot I25.10 ATHSCL HEART DISEASE OF [place] CORONARY 03/31/2017 PETROS CLEMONSC, ALI FACP CCDS Ot I49.5 SICK SINUS SYNDROME 03/31/2017 PETROS VELÁZQUEZ FACC, ALI FACP CCDS Ot I65.23 OCCLUSION AND STENOSIS OF [place] 03/31/2017 PETROS VELÁZQUEZ FACC, ALI FACP CCDS Ot M79.89 OTHER SPECIFIED SOFT TISSUE DISORDERS 04/11/2017 PETROS CLEMONSC, ALI FACP CCDS Ot E11.9 TYPE 2 DIABETES MELLITUS WITHOUT COMPLIC 04/11/2017 PETROS CLEMONSC, ALI FACP CCDS Ot E78.4 OTHER HYPERLIPIDEMIA 04/11/2017 PETROS VELÁZQUEZ FACC, ALI FACP CCDS Ot I25.10 ATHSCL HEART DISEASE OF [place] CORONARY 04/11/2017 PETROS VELÁZQUEZ [facility] CCDS Ot I49.5 SICK SINUS SYNDROME 04/11/2017 PETROS VELÁZQUEZ [facility] CCDS Ot I65.23 OCCLUSION AND STENOSIS OF [place]ATER[place] 04/11/2017 PETROS VELÁZQUEZ [facility] CCDS Ot M79.89 OTHER SPECIFIED SOFT TISSUE DISORDERS 04/19/2017 GELLENDER DO, TU Vyas Ot Z12.31 ENCNTR SCREEN MAMMOGRAM FOR MALIGNANT NE 05/10/2017 GELLENDER DO, TU Vyas Ot Z12.31 ENCNTR SCREEN MAMMOGRAM FOR MALIGNANT NE 05/20/2017 GELLENDER DO, TU Vyas Ot Z12.31 ENCNTR SCREEN MAMMOGRAM FOR MALIGNANT NE 09/22/2017 GELLENDER DO, TU Vyas Ot D64.9 ANEMIA, UNSPECIFIED 09/22/2017 GELLENDER DO, TU Vyas Ot E11.9 TYPE 2 DIABETES MELLITUS WITHOUT COMPLIC 09/22/2017 GELLENDER DO, TU Vyas Ot E53.8 DEFICIENCY OF OTHER SPECIFIED B GROUP 09/22/2017 GELLENDER DO, TU Vyas Ot E78.00 PURE HYPERCHOLESTEROLEMIA, UNSPECIFIED 09/22/2017 GELLENDER DO, TU Vyas Ot E83.42 HYPOMAGNESEMIA 09/22/2017 GELLENDER DO, TU Vyas Ot I10 ESSENTIAL (PRIMARY) HYPERTENSION 09/22/2017 [facility] TU Vyas Ot I25.10 ATHSCL HEART DISEASE OF [place] CORONARY 09/22/2017 [facility], TU Vyas Ot I25.2 OLD MYOCARDIAL INFARCTION 09/22/2017 [facility] TU Vyas Ot N39.0 URINARY TRACT INFECTION, SITE NOT SPECIF 09/22/2017 GELLENDER DO, TU Vyas Ot R41.82 ALTERED MENTAL STATUS, UNSPECIFIED 09/22/2017 GELLENDER DO, TU Vyas Ot R53.1 WEAKNESS 09/22/2017 GELLENDER DO, TU Vyas Ot R79.1 ABNORMAL COAGULATION PROFILE 09/22/2017 GELLENDER DO, TU Vyas Ot Z79.4 ALF (CURRENT) USE OF INSULIN 09/22/2017 GELLENDER DO, TU Vyas Ot Z87.891 PERSONAL HISTORY OF NICOTINE DEPENDENCE 09/22/2017 GELLENDER DO, TU Vyas Ot Z95.5 PRESENCE OF CORONARY ANGIOPLASTY IMPLANT 09/22/2017 GELLENDER DO, TU Vyas Ot D64.9 ANEMIA, UNSPECIFIED 09/22/2017 GELLENDER DO, TU Vyas Ot E11.9 TYPE 2 DIABETES MELLITUS WITHOUT COMPLIC 09/22/2017 GELLENDER DO, TU Vyas Ot E53.8 DEFICIENCY OF OTHER SPECIFIED B GROUP 09/22/2017 GELLENDER DO, TU Vyas Ot E78.00 PURE HYPERCHOLESTEROLEMIA, UNSPECIFIED 09/22/2017 GELLENDER DO, TU Vyas Ot E83.42 HYPOMAGNESEMIA 09/22/2017 GELLENDER DO, TU Vyas Ot I10 ESSENTIAL (PRIMARY) HYPERTENSION 09/22/2017 GELLENDER DO, TU Vyas Ot I25.10 ATHSCL HEART DISEASE OF [place] CORONARY 09/22/2017 GELLENDER DO, TU Vyas Ot I25.2 OLD MYOCARDIAL INFARCTION 09/22/2017 GELLENDER DO, TU Vyas Ot N39.0 URINARY TRACT INFECTION, SITE NOT SPECIF 09/22/2017 GELLENDER DO, TU Vyas Ot R41.82 ALTERED MENTAL STATUS, UNSPECIFIED 09/22/2017 GELLENDER DO, TU Vyas Ot R53.1 WEAKNESS 09/22/2017 GELLENDER DO, TU Vyas Ot R79.1 ABNORMAL COAGULATION PROFILE 09/22/2017 GELLENDER DO, TU Vyas Ot Z79.4 ALF (CURRENT) USE OF INSULIN 09/22/2017 GELLENDER DO, TU Vyas Ot Z87.891 PERSONAL HISTORY OF NICOTINE DEPENDENCE 09/22/2017 GELLENDER DO, TU Vyas Ot Z95.5 PRESENCE OF CORONARY ANGIOPLASTY IMPLANT 10/18/2017 GELLENDER DO, TU Vyas Ot D63.8 ANEMIA IN OTHER CHRONIC DISEASES CLASSIF 10/18/2017 GELLENDER DO, TU Vyas Ot D69.6 THROMBOCYTOPENIA, UNSPECIFIED 10/18/2017 GELLENDER DO, TU Vyas Ot E11.9 TYPE 2 DIABETES MELLITUS WITHOUT COMPLIC 10/18/2017 GELLENDER DO, TU Vyas Ot E53.8 DEFICIENCY OF OTHER SPECIFIED B GROUP 10/18/2017 GELLENDER DO, TU Vyas Ot E78.00 PURE HYPERCHOLESTEROLEMIA, UNSPECIFIED 10/18/2017 GELLENDER DO, TU Vyas Ot E83.42 HYPOMAGNESEMIA 10/18/2017 GELLENDER DO, TU Vyas Ot F02.81 DEMENTIA IN OTH DISEASES CLASSD ELSWHR W 10/18/2017 GELLENDER DO, TU Vyas Ot F03.90 UNSPECIFIED DEMENTIA WITHOUT BEHAVIORAL 10/18/2017 GELLENDER DO, TU Vyas Ot G30.9 ALZHEIMER'S DISEASE, UNSPECIFIED 10/18/2017 GELLENDER DO, TU Vyas Ot H91.90 UNSPECIFIED HEARING LOSS, UNSPECIFIED EA 10/18/2017 GELLENDER DO, TU Vyas Ot I10 ESSENTIAL (PRIMARY) HYPERTENSION 10/18/2017 GELLENDER DO, TU Vyas Ot I25.10 ATHSCL HEART DISEASE OF [place] CORONARY 10/18/2017 GELLENDER DO, TU Vyas Ot I25.2 OLD MYOCARDIAL INFARCTION 10/18/2017 GELLENDER DO, TU Vyas Ot K21.9 GASTRO-ESOPHAGEAL REFLUX DISEASE WITHOUT 10/18/2017 GELLENDER DO, TU Vyas Ot M19.91 PRIMARY OSTEOARTHRITIS, UNSPECIFIED SITE 10/18/2017 GELLENDER DO, TU Vyas Ot N39.0 URINARY TRACT INFECTION, SITE NOT SPECIF 10/18/2017 GELLENDER DO, TU Vyas Ot R41.82 ALTERED MENTAL STATUS, UNSPECIFIED 10/18/2017 GELLENDER DO, TU Vyas Ot S00.11XA CONTUSION OF RIGHT EYELID AND PERIOCULAR 10/18/2017 GELLENDER DO, TU Vyas Ot S00.12XA CONTUSION OF LEFT EYELID AND PERIOCULAR 10/18/2017 GELLENDER DO, TU Vyas Ot W18.30XA FALL ON SAME LEVEL, UNSPECIFIED, INITIAL 10/18/2017 GELLENDER DO, TU Vyas Ot Y92.[address] 10/18/2017 GELLENDER DO, TU Vyas Ot Z66 DO NOT RESUSCITATE 10/18/2017 GELLENDER DO, TU Vyas Ot Z79.4 BELT LACER (CURRENT) USE OF INSULIN 10/18/2017 GELLENDER DO, TU Vyas Ot Z87.891 PERSONAL HISTORY OF NICOTINE DEPENDENCE 10/18/2017 GELLENDER DO, TU Vyas Ot Z95.5 PRESENCE OF CORONARY ANGIOPLASTY IMPLANT 10/21/2017 GELLENDER DO, TU Vyas Ot M25.551 PAIN IN RIGHT HIP 10/21/2017 GELLENDER DO, TU Vyas Ot M79.604 PAIN IN RIGHT LEG 10/21/2017 GELLENDER DO, TU Vyas Ot W19.XXXA UNSPECIFIED FALL, INITIAL ENCOUNTER 10/25/2017 GELLENDER DO, TU Vyas Ot R41.0 DISORIENTATION, UNSPECIFIED 10/25/2017 GELLENDER DO, TU Vyas Ot R82.90 UNSPECIFIED ABNORMAL FINDINGS IN URINE 10/26/2017 Ot 414.01 CORONARY ATHEROSCLEROSIS OF [place] CORON 10/26/2017 LAURA PINEDATU Ot V76.12 OTH SCREEN MAMMO-MALIGN NEOPLASM OF [place] 10/26/2017 LAURA PINEDA TU Vyas Ot V76.12 OTH SCREEN MAMMO-MALIGN NEOPLASM OF [place] 10/26/2017 LAURA PINEDA TU Vyas Ot 723.1 CERVICALGIA 10/26/2017 PETROS VELÁZQUEZ [facility], ALI FACP CCDS Ot 250.00 DIAB WINSOME WO COMPL, TYPE II OR UNSPEC TY 10/26/2017 PETROS VELÁZQUEZ [facility], ALI FACP CCDS Ot 414.9 CHR ISCHEMIC HRT DIS NOS 10/26/2017 PETROS VELÁZQUEZ [facility], ALI FACP CCDS Ot 447.9 ARTERIAL DISEASE NOS 10/26/2017 PETROS VELÁZQUEZ [facility], ALI FACP CCDS Ot 530.81 ESOPHAGEAL REFLUX 10/26/2017 LAURA PINEDATU Ot Z12.31 ENCNTR SCREEN MAMMOGRAM FOR MALIGNANT NE 10/26/2017 VJ VILLATORO MD Ot D64.9 ANEMIA, UNSPECIFIED 10/26/2017 VJ VILLATORO MD Ot K92.1 MELENA 10/26/2017 VJ VILLATORO MD Ot Z01.818 ENCOUNTER FOR OTHER PREPROCEDURAL EXAMIN 10/26/2017 LAURA PINEDATU Ot J44.9 CHRONIC OBSTRUCTIVE PULMONARY DISEASE, U 10/26/2017 Ot N28.9 DISORDER OF KIDNEY AND URETER, UNSPECIFI 10/26/2017 LAURA PINEDATU Ot E04.1 NONTOXIC SINGLE THYROID NODULE 10/26/2017 LAURA PINEDATU Ot E04.1 NONTOXIC SINGLE THYROID NODULE 10/26/2017 LAURA PINEDATU Ot Z12.31 ENCNTR SCREEN MAMMOGRAM FOR MALIGNANT NE 10/26/2017 LAURA PINEDATU Ot N39.0 URINARY TRACT INFECTION, SITE NOT SPECIF 10/26/2017 EMELINA AYERS MD, Ot K57.30 DVRTCLOS OF LG INT W/O PERFORATION OR AB 10/26/2017 EMELINA AYERS MD Ot K80.20 CALCULUS OF GALLBLADDER W/O CHOLECYSTITI 10/26/2017 EMELINA AYERS MD Ot R31.9 HEMATURIA, UNSPECIFIED 10/26/2017 GELLENDER DO, TU Vyas Ot L29.9 PRURITUS, UNSPECIFIED 10/26/2017 GELLENDER DO, TU Vyas Ot R22.42 LOCALIZED SWELLING, MASS AND LUMP, LEFT 10/26/2017 PETROS VELÁZQUEZ [facility], ALI FACP CCDS Ot E11.9 TYPE 2 DIABETES MELLITUS WITHOUT COMPLIC 10/26/2017 PETROS VELÁZQUEZ [facility], ALI FACP CCDS Ot E78.4 OTHER HYPERLIPIDEMIA 10/26/2017 PETROS CLEMONS, ALI FACP CCDS Ot I25.10 ATHSCL HEART DISEASE OF [place] CORONARY 10/26/2017 PETROS VELÁZQUEZ [facility], ALI FACP CCDS Ot I49.5 SICK SINUS SYNDROME 10/26/2017 PETROS VELÁZQUEZ [facility], ALI FACP CCDS Ot I65.23 OCCLUSION AND STENOSIS OF BILATERAL [place] 10/26/2017 PETROS VELÁZQUEZ [facility], ALI FACP CCDS Ot M79.89 OTHER SPECIFIED SOFT TISSUE DISORDERS 10/26/2017 GELLENDER DO, TU Vyas Ot Z12.31 ENCNTR SCREEN MAMMOGRAM FOR MALIGNANT NE 10/26/2017 GELLENDER DO, TU Vyas Ot M25.551 PAIN IN RIGHT HIP 10/26/2017 GELLENDER DO, TU Vyas Ot M79.604 PAIN IN RIGHT LEG 10/26/2017 GELLENDER DO, TU Vyas Ot W19.XXXA UNSPECIFIED FALL, INITIAL ENCOUNTER 10/26/2017 GELLENDER DO, TU Vyas Ot R41.0 DISORIENTATION, UNSPECIFIED 10/26/2017 GELLENDER DO, TU Vyas Ot R82.90 UNSPECIFIED ABNORMAL FINDINGS IN URINE 10/27/2017 GELLENDER DO, TU Vyas Ot R41.82 ALTERED MENTAL STATUS, UNSPECIFIED 10/30/2017 GELLENDER DO, TU Vyas Ot R41.0 DISORIENTATION, UNSPECIFIED 10/30/2017 GELLENDER DO, TU Vyas Ot R82.90 UNSPECIFIED ABNORMAL FINDINGS IN URINE 11/09/2017 GELLENDER DO, TU Vyas Ot M25.551 PAIN IN RIGHT HIP 11/09/2017 GELLENDER DO, TU Vyas Ot M79.604 PAIN IN RIGHT LEG 11/09/2017 GELLENDER DO, TU Vyas Ot W19.XXXA UNSPECIFIED FALL, INITIAL ENCOUNTER Procedures Code Description Performed By Performed On 81.91 ARTHROCENTESIS 08/12/2014 80.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 08/13/2014 Results Test Result Range Bacterial urine culture - 11/02/16 10:40 Bacterial urine culture [id number] NRG COLONY COUNT >100,000/ML NR FTX;REPORTABLE SENSITIVITY REPORTED AT 0918, 11-04-16 NR Bacterial susceptibility panel - 11/02/16 10:40 Gentamicin susceptibility test by minimum inhibitory concentration < = NRG Trimethoprim/sulfamethoxazole susceptibility test by minimum inhibitoryconcentration <= NRG Ampicillin susceptibility test by minimum inhibitory concentration > = NRG Tobramycin susceptibility test by minimum inhibitory concentration < = NRG Cefazolin susceptibility test by minimum inhibitory concentration 8 NRG Ceftriaxone susceptibility test by minimum inhibitory concentration <= NRG Ampicillin/sulbactam susceptibility test by minimum inhibitory concentration 16 NRG Piperacillin/tazobactam susceptibility test by minimum inhibitory concentration <= NRG Ciprofloxacin susceptibility test by minimum inhibitory concentration >= NRG Meropenem susceptibility test by minimum inhibitory concentration < = NRG Nitrofurantoin susceptibility test by minimum inhibitory concentration <= NRG Aztreonam susceptibility test by minimum inhibitory concentration < = NRG Extended spectrum beta lactamase (ESBL) producing bacteria susceptibility test by minimum inhibitory concentration - NRG Complete blood count (CBC) with automated white blood cell (WBC) differential - 09/19/17 22:44 Blood leukocytes automated count (number/volume) 6.1 10*3/uL 4.3-11.0 Blood erythrocytes automated count (number/volume) 3.65 10*6/uL 4.35-5.85 Venous blood hemoglobin measurement (mass/volume) 10.5 g/dL 11.5-16.0 Blood hematocrit (volume fraction) 33 % 35-52 Automated erythrocyte mean corpuscular volume 89 [foz_us] 80-99 Automated erythrocyte mean corpuscular hemoglobin (mass per erythrocyte) 29 pg 25-34 Automated erythrocyte mean corpuscular hemoglobin concentration measurement ( mass/volume) 32 g/dL 32-36 Automated erythrocyte distribution width ratio 16.3 % 10.0-14.5 Automated blood platelet count (count/volume) 148 10*3/uL 130-400 Automated blood platelet mean volume measurement 10.8 [foz_us] 7.4-10.4 Automated blood neutrophils/100 leukocytes 53 % 42-75 Automated blood lymphocytes/100 leukocytes 34 % 12-44 Blood monocytes/100 leukocytes 12 % 0-12 Automated blood eosinophils/100 leukocytes 1 % 0-10 Automated blood basophils/100 leukocytes 1 % 0-10 Blood neutrophils automated count (number/volume) 3.2 10*3 1.8-7.8 Blood lymphocytes automated count (number/volume) 2.1 10*3 1.0-4.0 Blood monocytes automated count (number/volume) 0.7 10*3 0.0-1.0 Automated eosinophil count 0.1 10*3/uL 0.0-0.3 Automated blood basophil count (count/volume) 0.0 10*3/uL 0.0-0.1 PT panel in platelet poor plasma by coagulation assay - 09/19/17 22:44 Prothrombin time (PT) in platelet poor plasma by coagulation assay 17.7 s 12.2-14.7 INR in platelet poor plasma or blood by coagulation assay 1.5 0.8-1.4 Activated partial thromboplastin time (aPTT) in platelet poor plasma bycoagulation assay - 09/19/17 22:44 Activated partial thromboplastin time (aPTT) in platelet poor plasma bycoagulation assay 39 s 24-35 Comprehensive metabolic panel - 09/19/17 22:44 Serum or plasma sodium measurement (moles/volume) 142 mmol/L 135-145 Serum or plasma potassium measurement (moles/volume) 4.2 mmol/L 3.6-5.0 Serum or plasma chloride measurement (moles/volume) 108 mmol/L 98-107 Carbon dioxide 20 mmol/L 21-32 Serum or plasma anion gap determination (moles/volume) 14 mmol/L 5-14 Serum or plasma urea nitrogen measurement (mass/volume) 12 mg/dL 7-18 Serum or plasma creatinine measurement (mass/volume) 0.79 mg/dL 0.60-1.30 Serum or plasma urea nitrogen/creatinine mass ratio 15 NRG Serum or plasma creatinine measurement with calculation of estimated glomerular filtration rate > NRG Serum or plasma glucose measurement (mass/volume) 185 mg/dL 70-105 Serum or plasma calcium measurement (mass/volume) 8.9 mg/dL 8.5-10.1 Serum or plasma total bilirubin measurement (mass/volume) 0.8 mg/dL 0.1-1.0 Serum or plasma alkaline phosphatase measurement (enzymatic activity/volume) 101 U/L 40-136 Serum or plasma aspartate aminotransferase measurement (enzymatic activity/ volume) 48 U/L 5-34 Serum or plasma alanine aminotransferase measurement (enzymatic activity/volume ) 18 U/L 0-55 Serum or plasma protein measurement (mass/volume) 6.4 g/dL 6.4-8.2 Serum or plasma albumin measurement (mass/volume) 3.2 g/dL 3.2-4.5 Serum or plasma troponin i.cardiac measurement (mass/volume) - 09/19/17 22:44 Serum or plasma troponin i.cardiac measurement (mass/volume) < ng/ mL <0.30 Capillary blood glucose measurement by glucometer (mass/volume) - 09/19/17 22: 58 Capillary blood glucose measurement by glucometer (mass/volume) 160 mg/dL 70-110 Complete urinalysis with reflex to culture - 09/19/17 23:26 Urine color determination YELLOW NRG Urine clarity determination SLIGHTLY CLOUDY NRG Urine pH measurement by test strip 5 5-9 Specific gravity of urine by test strip 1.020 1.016- 1.022 Urine protein assay by test strip, semi-quantitative 2+ NEGATIVE Urine glucose detection by automated test strip NEGATIVE NEGATIVE Erythrocytes detection in urine sediment by light microscopy 5+ NEGATIVE Urine ketones detection by automated test strip 3+ NEGATIVE Urine nitrite detection by test strip POSITIVE NEGATIVE Urine total bilirubin detection by test strip NEGATIVE NEGATIVE Urine urobilinogen measurement by automated test strip (mass/volume) NORMAL NORMAL Urine leukocyte esterase detection by dipstick 3+ NEGATIVE Automated urine sediment erythrocyte count by microscopy (number/high power field) [HPF] NRG Automated urine sediment leukocyte count by microscopy (number/high power field ) > [HPF] NRG Bacteria detection in urine sediment by light microscopy LARGE NRG Squamous epithelial cells detection in urine sediment by light microscopy 0-2 NRG Crystals detection in urine sediment by light microscopy NONE NRG Casts detection in urine sediment by light microscopy NONE NRG Mucus detection in urine sediment by light microscopy NEGATIVE NRG Complete urinalysis with reflex to culture YES NRG Bacterial urine culture - 09/19/17 23:26 Bacterial urine culture [id number] NRG COLONY COUNT <10,000 NRG FTX;REPORTABLE SENSITIVITY REPORTED AT 0812, 4-18 NRG Bacterial susceptibility panel - 09/19/17 23:26 Gentamicin susceptibility test by minimum inhibitory concentration < = NRG Trimethoprim/sulfamethoxazole susceptibility test by minimum inhibitoryconcentration >= NRG Ampicillin susceptibility test by minimum inhibitory concentration > = NRG Tobramycin susceptibility test by minimum inhibitory concentration < = NRG Cefazolin susceptibility test by minimum inhibitory concentration < = NRG Ceftriaxone susceptibility test by minimum inhibitory concentration <= NRG Ampicillin/sulbactam susceptibility test by minimum inhibitory concentration I NRG Piperacillin/tazobactam susceptibility test by minimum inhibitory concentration S NRG Ciprofloxacin susceptibility test by minimum inhibitory concentration >= NRG Meropenem susceptibility test by minimum inhibitory concentration < = NRG Nitrofurantoin susceptibility test by minimum inhibitory concentration <= NRG Aztreonam susceptibility test by minimum inhibitory concentration < = NRG Extended spectrum beta lactamase (ESBL) producing bacteria susceptibility test by minimum inhibitory concentration - NRG Blood lactic acid measurement (moles/volume) - 09/20/17 02:45 Blood lactic acid measurement (moles/volume) 2.57 mmol/L 0.50-2.00 Bacterial blood culture - 09/20/17 02:45 Bacterial blood culture NG NRG Bacterial blood culture - 09/20/17 02:50 Bacterial blood culture NG NRG Complete blood count (CBC) with automated white blood cell (WBC) differential - 09/20/17 05:25 Blood leukocytes automated count (number/volume) 4.4 10*3/uL 4.3-11.0 Blood erythrocytes automated count (number/volume) 3.18 10*6/uL 4.35-5.85 Venous blood hemoglobin measurement (mass/volume) 9.0 g/dL 11.5-16.0 Blood hematocrit (volume fraction) 28 % 35-52 Automated erythrocyte mean corpuscular volume 89 [foz_us] 80-99 Automated erythrocyte mean corpuscular hemoglobin (mass per erythrocyte) 28 pg 25-34 Automated erythrocyte mean corpuscular hemoglobin concentration measurement ( mass/volume) 32 g/dL 32-36 Automated erythrocyte distribution width ratio 16.3 % 10.0-14.5 Automated blood platelet count (count/volume) 114 10*3/uL 130-400 Automated blood platelet mean volume measurement 10.9 [foz_us] 7.4-10.4 Automated blood neutrophils/100 leukocytes 43 % 42-75 Automated blood lymphocytes/100 leukocytes 41 % 12-44 Blood monocytes/100 leukocytes 13 % 0-12 Automated blood eosinophils/100 leukocytes 2 % 0-10 Automated blood basophils/100 leukocytes 1 % 0-10 Blood neutrophils automated count (number/volume) 1.9 10*3 1.8-7.8 Blood lymphocytes automated count (number/volume) 1.8 10*3 1.0-4.0 Blood monocytes automated count (number/volume) 0.6 10*3 0.0-1.0 Automated eosinophil count 0.1 10*3/uL 0.0-0.3 Automated blood basophil count (count/volume) 0.0 10*3/uL 0.0-0.1 Whole blood basic metabolic panel - 09/20/17 05:25 Serum or plasma sodium measurement (moles/volume) 145 mmol/L 135-145 Serum or plasma potassium measurement (moles/volume) 3.8 mmol/L 3.6-5.0 Serum or plasma chloride measurement (moles/volume) 114 mmol/L 98-107 Carbon dioxide 19 mmol/L 21-32 Serum or plasma anion gap determination (moles/volume) 12 mmol/L 5-14 Serum or plasma urea nitrogen measurement (mass/volume) 10 mg/dL 7-18 Serum or plasma creatinine measurement (mass/volume) 0.66 mg/dL 0.60-1.30 Serum or plasma urea nitrogen/creatinine mass ratio 15 NRG Serum or plasma creatinine measurement with calculation of estimated glomerular filtration rate > NRG Serum or plasma glucose measurement (mass/volume) 117 mg/dL 70-105 Serum or plasma calcium measurement (mass/volume) 8.1 mg/dL 8.5-10.1 Serum or plasma lactate measurement (moles/volume) - 09/20/17 05:25 Serum or plasma lactate measurement (moles/volume) 2.28 mmol/L 0.50-2.00 Magnesium - 09/20/17 05:25 Magnesium 0.9 mg/dL 1.8-2.4 THYROID STIMULATING HORMONE - 09/20/17 05:25 THYROID STIMULATING HORMONE 1.75 u[iU]/mL 0.35-4.94 Hemoglobin A1c - 09/20/17 05:25 Blood hemoglobin A1C measurement (mass/volume) 6.7 % 4.0- 5.6 MEAN BLOOD GLUCOSE 146 % <=126 Blood lactic acid measurement (moles/volume) - 09/20/17 10:13 Blood lactic acid measurement (moles/volume) 2.77 mmol/L 0.50-2.00 Serum or plasma lactate measurement (moles/volume) - 09/20/17 12:16 Serum or plasma lactate measurement (moles/volume) 2.28 mmol/L 0.50-2.00 Blood lactic acid measurement (moles/volume) - 09/20/17 15:14 Blood lactic acid measurement (moles/volume) 1.94 mmol/L 0.50-2.00 Magnesium - 09/20/17 17:00 Magnesium 2.0 mg/dL 1.8-2.4 Capillary blood glucose measurement by glucometer (mass/volume) - 09/20/17 20: 41 Capillary blood glucose measurement by glucometer (mass/volume) 235 mg/dL 70-110 Automated blood complete blood count (hemogram) panel - 09/21/17 05:54 Blood leukocytes automated count (number/volume) 4.9 10*3/uL 4.3-11.0 Blood erythrocytes automated count (number/volume) 3.43 10*6/uL 4.35-5.85 Venous blood hemoglobin measurement (mass/volume) 9.9 g/dL 11.5-16.0 Blood hematocrit (volume fraction) 31 % 35-52 Automated erythrocyte mean corpuscular volume 90 [foz_us] 80-99 Automated erythrocyte mean corpuscular hemoglobin (mass per erythrocyte) 29 pg 25-34 Automated erythrocyte mean corpuscular hemoglobin concentration measurement ( mass/volume) 32 g/dL 32-36 Automated erythrocyte distribution width ratio 16.5 % 10.0-14.5 Automated blood platelet count (count/volume) 116 10*3/uL 130-400 Automated blood platelet mean volume measurement 11.0 [foz_us] 7.4-10.4 PT panel in platelet poor plasma by coagulation assay - 09/21/17 05:54 Prothrombin time (PT) in platelet poor plasma by coagulation assay 15.7 s 12.2-14.7 INR in platelet poor plasma or blood by coagulation assay 1.2 0.8-1.4 Comprehensive metabolic panel - 09/21/17 05:54 Serum or plasma sodium measurement (moles/volume) 144 mmol/L 135-145 Serum or plasma potassium measurement (moles/volume) 4.2 mmol/L 3.6-5.0 Serum or plasma chloride measurement (moles/volume) 114 mmol/L 98-107 Carbon dioxide 25 mmol/L 21-32 Serum or plasma anion gap determination (moles/volume) 5 mmol/L 5-14 Serum or plasma urea nitrogen measurement (mass/volume) 9 mg/dL 7-18 Serum or plasma creatinine measurement (mass/volume) 0.68 mg/dL 0.60-1.30 Serum or plasma urea nitrogen/creatinine mass ratio 13 NRG Serum or plasma creatinine measurement with calculation of estimated glomerular filtration rate > NRG Serum or plasma glucose measurement (mass/volume) 89 mg/dL 70-105 Serum or plasma calcium measurement (mass/volume) 8.6 mg/dL 8.5-10.1 Serum or plasma total bilirubin measurement (mass/volume) 0.6 mg/dL 0.1-1.0 Serum or plasma alkaline phosphatase measurement (enzymatic activity/volume) 91 U/L 40-136 Serum or plasma aspartate aminotransferase measurement (enzymatic activity/ volume) 51 U/L 5-34 Serum or plasma alanine aminotransferase measurement (enzymatic activity/volume ) 20 U/L 0-55 Serum or plasma protein measurement (mass/volume) 5.9 g/dL 6.4-8.2 Serum or plasma albumin measurement (mass/volume) 3.0 g/dL 3.2-4.5 Complete urinalysis with reflex to culture - 09/21/17 10:36 Urine color determination YELLOW NRG Urine clarity determination CLEAR NRG Urine pH measurement by test strip 6 5-9 Specific gravity of urine by test strip 1.015 1.016- 1.022 Urine protein assay by test strip, semi-quantitative NEGATIVE NEGATIVE Urine glucose detection by automated test strip NEGATIVE NEGATIVE Erythrocytes detection in urine sediment by light microscopy 1+ NEGATIVE Urine ketones detection by automated test strip NEGATIVE NEGATIVE Urine nitrite detection by test strip NEGATIVE NEGATIVE Urine total bilirubin detection by test strip NEGATIVE NEGATIVE Urine urobilinogen measurement by automated test strip (mass/volume) NORMAL NORMAL Urine leukocyte esterase detection by dipstick 3+ NEGATIVE Automated urine sediment erythrocyte count by microscopy (number/high power field) [HPF] NRG Automated urine sediment leukocyte count by microscopy (number/high power field ) [HPF] NRG Bacteria detection in urine sediment by light microscopy TRACE NRG Squamous epithelial cells detection in urine sediment by light microscopy 5-10 NRG Crystals detection in urine sediment by light microscopy NONE NRG Casts detection in urine sediment by light microscopy NONE NRG Mucus detection in urine sediment by light microscopy NEGATIVE NRG Complete urinalysis with reflex to culture YES NRG Bacterial urine culture - 09/21/17 10:36 Bacterial urine culture NG NRG Automated blood complete blood count (hemogram) panel - 09/22/17 06:19 Blood leukocytes automated count (number/volume) 6.2 10*3/uL 4.3-11.0 Blood erythrocytes automated count (number/volume) 3.50 10*6/uL 4.35-5.85 Venous blood hemoglobin measurement (mass/volume) 10.1 g/dL 11.5-16.0 Blood hematocrit (volume fraction) 31 % 35-52 Automated erythrocyte mean corpuscular volume 89 [foz_us] 80-99 Automated erythrocyte mean corpuscular hemoglobin (mass per erythrocyte) 29 pg 25-34 Automated erythrocyte mean corpuscular hemoglobin concentration measurement ( mass/volume) 32 g/dL 32-36 Automated erythrocyte distribution width ratio 16.4 % 10.0-14.5 Automated blood platelet count (count/volume) 130 10*3/uL 130-400 Automated blood platelet mean volume measurement 11.2 [foz_us] 7.4-10.4 Whole blood basic metabolic panel - 09/22/17 06:19 Serum or plasma sodium measurement (moles/volume) 138 mmol/L 135-145 Serum or plasma potassium measurement (moles/volume) 4.1 mmol/L 3.6-5.0 Serum or plasma chloride measurement (moles/volume) 107 mmol/L 98-107 Carbon dioxide 21 mmol/L 21-32 Serum or plasma anion gap determination (moles/volume) 10 mmol/L 5-14 Serum or plasma urea nitrogen measurement (mass/volume) 10 mg/dL 7-18 Serum or plasma creatinine measurement (mass/volume) 0.65 mg/dL 0.60-1.30 Serum or plasma urea nitrogen/creatinine mass ratio 15 NRG Serum or plasma creatinine measurement with calculation of estimated glomerular filtration rate > NRG Serum or plasma glucose measurement (mass/volume) 169 mg/dL 70-105 Serum or plasma calcium measurement (mass/volume) 8.8 mg/dL 8.5-10.1 Complete urinalysis with reflex to culture - 09/22/17 08:00 Urine color determination YELLOW NRG Urine clarity determination CLEAR NRG Urine pH measurement by test strip 5 5-9 Specific gravity of urine by test strip 1.020 1.016- 1.022 Urine protein assay by test strip, semi-quantitative 1+ NEGATIVE Urine glucose detection by automated test strip NEGATIVE NEGATIVE Erythrocytes detection in urine sediment by light microscopy 5+ NEGATIVE Urine ketones detection by automated test strip NEGATIVE NEGATIVE Urine nitrite detection by test strip NEGATIVE NEGATIVE Urine total bilirubin detection by test strip NEGATIVE NEGATIVE Urine urobilinogen measurement by automated test strip (mass/volume) NORMAL NORMAL Urine leukocyte esterase detection by dipstick 2+ NEGATIVE Automated urine sediment erythrocyte count by microscopy (number/high power field) [HPF] NRG Automated urine sediment leukocyte count by microscopy (number/high power field ) [HPF] NRG Bacteria detection in urine sediment by light microscopy TRACE NRG Squamous epithelial cells detection in urine sediment by light microscopy 2-5 NRG Crystals detection in urine sediment by light microscopy NONE NRG Casts detection in urine sediment by light microscopy NONE NRG Mucus detection in urine sediment by light microscopy NEGATIVE NRG Complete urinalysis with reflex to culture YES NRG Bacterial urine culture - 09/22/17 08:00 Bacterial urine culture NG NRG Capillary blood glucose measurement by glucometer (mass/volume) - 10/13/17 08: 35 Capillary blood glucose measurement by glucometer (mass/volume) 149 mg/dL 70-110 Complete blood count (CBC) with automated white blood cell (WBC) differential - 10/13/17 10:24 Blood leukocytes automated count (number/volume) 5.0 10*3/uL 4.3-11.0 Blood erythrocytes automated count (number/volume) 3.65 10*6/uL 4.35-5.85 Venous blood hemoglobin measurement (mass/volume) 10.1 g/dL 11.5-16.0 Blood hematocrit (volume fraction) 32 % 35-52 Automated erythrocyte mean corpuscular volume 89 [foz_us] 80-99 Automated erythrocyte mean corpuscular hemoglobin (mass per erythrocyte) 28 pg 25-34 Automated erythrocyte mean corpuscular hemoglobin concentration measurement ( mass/volume) 31 g/dL 32-36 Automated erythrocyte distribution width ratio 17.0 % 10.0-14.5 Automated blood platelet count (count/volume) 121 10*3/uL 130-400 Automated blood platelet mean volume measurement 11.5 [foz_us] 7.4-10.4 Automated blood neutrophils/100 leukocytes 46 % 42-75 Automated blood lymphocytes/100 leukocytes 41 % 12-44 Blood monocytes/100 leukocytes 9 % 0-12 Automated blood eosinophils/100 leukocytes 3 % 0-10 Automated blood basophils/100 leukocytes 1 % 0-10 Blood neutrophils automated count (number/volume) 2.3 10*3 1.8-7.8 Blood lymphocytes automated count (number/volume) 2.1 10*3 1.0-4.0 Blood monocytes automated count (number/volume) 0.5 10*3 0.0-1.0 Automated eosinophil count 0.1 10*3/uL 0.0-0.3 Automated blood basophil count (count/volume) 0.0 10*3/uL 0.0-0.1 Comprehensive metabolic panel - 10/13/17 10:24 Serum or plasma sodium measurement (moles/volume) 145 mmol/L 135-145 Serum or plasma potassium measurement (moles/volume) 4.5 mmol/L 3.6-5.0 Serum or plasma chloride measurement (moles/volume) 112 mmol/L 98-107 Carbon dioxide 25 mmol/L 21-32 Serum or plasma anion gap determination (moles/volume) 8 mmol/L 5-14 Serum or plasma urea nitrogen measurement (mass/volume) 12 mg/dL 7-18 Serum or plasma creatinine measurement (mass/volume) 0.68 mg/dL 0.60-1.30 Serum or plasma urea nitrogen/creatinine mass ratio 18 NRG Serum or plasma creatinine measurement with calculation of estimated glomerular filtration rate > NRG Serum or plasma glucose measurement (mass/volume) 134 mg/dL 70-105 Serum or plasma calcium measurement (mass/volume) 9.4 mg/dL 8.5-10.1 Serum or plasma total bilirubin measurement (mass/volume) 0.7 mg/dL 0.1-1.0 Serum or plasma alkaline phosphatase measurement (enzymatic activity/volume) 105 U/L 40-136 Serum or plasma aspartate aminotransferase measurement (enzymatic activity/ volume) 48 U/L 5-34 Serum or plasma alanine aminotransferase measurement (enzymatic activity/volume ) 21 U/L 0-55 Serum or plasma protein measurement (mass/volume) 7.0 g/dL 6.4-8.2 Serum or plasma albumin measurement (mass/volume) 3.5 g/dL 3.2-4.5 Magnesium - 10/13/17 10:24 Magnesium 1.0 mg/dL 1.8-2.4 Serum or plasma thyrotropin measurement by detection limit <=0.05 miu/l (units/ volume) - 10/13/17 10:24 Serum or plasma thyrotropin measurement by detection limit <=0.05 miu/l (units/ volume) 1.51 u[iU]/mL 0.35-4.94 Serum or plasma C reactive protein measurement (mass/volume) - 10/13/17 10:24 Serum or plasma C reactive protein measurement (mass/volume) 0.29 mg /dL 0.00-0.50 Complete urinalysis with reflex to culture - 10/13/17 10:38 Urine color determination YELLOW NRG Urine clarity determination CLEAR NRG Urine pH measurement by test strip 8 5-9 Specific gravity of urine by test strip 1.010 1.016- 1.022 Urine protein assay by test strip, semi-quantitative 1+ NEGATIVE Urine glucose detection by automated test strip NEGATIVE NEGATIVE Erythrocytes detection in urine sediment by light microscopy 2+ NEGATIVE Urine ketones detection by automated test strip NEGATIVE NEGATIVE Urine nitrite detection by test strip NEGATIVE NEGATIVE Urine total bilirubin detection by test strip NEGATIVE NEGATIVE Urine urobilinogen measurement by automated test strip (mass/volume) NORMAL NORMAL Urine leukocyte esterase detection by dipstick 3+ NEGATIVE Automated urine sediment erythrocyte count by microscopy (number/high power field) [HPF] NRG Automated urine sediment leukocyte count by microscopy (number/high power field ) [HPF] NRG Bacteria detection in urine sediment by light microscopy TRACE NRG Squamous epithelial cells detection in urine sediment by light microscopy 0-2 NRG Crystals detection in urine sediment by light microscopy NONE NRG Casts detection in urine sediment by light microscopy NONE NRG Mucus detection in urine sediment by light microscopy NEGATIVE NRG Complete urinalysis with reflex to culture YES NRG Bacterial urine culture - 10/13/17 10:38 Bacterial urine culture NG NRG Cyanocobalamin measurement - 10/13/17 12:33 Vitamin B12 > pg/mL 200-1000 Capillary blood glucose measurement by glucometer (mass/volume) - 10/13/17 14: 49 Capillary blood glucose measurement by glucometer (mass/volume) 146 mg/dL 70-110 Capillary blood glucose measurement by glucometer (mass/volume) - 10/13/17 18: 20 Capillary blood glucose measurement by glucometer (mass/volume) 192 mg/dL 70-110 Capillary blood glucose measurement by glucometer (mass/volume) - 10/13/17 22: 46 Capillary blood glucose measurement by glucometer (mass/volume) 248 mg/dL 70-110 Capillary blood glucose measurement by glucometer (mass/volume) - 10/14/17 05: 11 Capillary blood glucose measurement by glucometer (mass/volume) 238 mg/dL 70-110 Automated blood complete blood count (hemogram) panel - 10/14/17 05:25 Blood leukocytes automated count (number/volume) 4.6 10*3/uL 4.3-11.0 Blood erythrocytes automated count (number/volume) 3.34 10*6/uL 4.35-5.85 Venous blood hemoglobin measurement (mass/volume) 9.4 g/dL 11.5-16.0 Blood hematocrit (volume fraction) 29 % 35-52 Automated erythrocyte mean corpuscular volume 87 [foz_us] 80-99 Automated erythrocyte mean corpuscular hemoglobin (mass per erythrocyte) 28 pg 25-34 Automated erythrocyte mean corpuscular hemoglobin concentration measurement ( mass/volume) 32 g/dL 32-36 Automated erythrocyte distribution width ratio 16.6 % 10.0-14.5 Automated blood platelet count (count/volume) 112 10*3/uL 130-400 Automated blood platelet mean volume measurement 11.9 [foz_us] 7.4-10.4 Whole blood basic metabolic panel - 10/14/17 05:25 Serum or plasma sodium measurement (moles/volume) 143 mmol/L 135-145 Serum or plasma potassium measurement (moles/volume) 4.3 mmol/L 3.6-5.0 Serum or plasma chloride measurement (moles/volume) 113 mmol/L 98-107 Carbon dioxide 20 mmol/L 21-32 Serum or plasma anion gap determination (moles/volume) 10 mmol/L 5-14 Serum or plasma urea nitrogen measurement (mass/volume) 10 mg/dL 7-18 Serum or plasma creatinine measurement (mass/volume) 0.66 mg/dL 0.60-1.30 Serum or plasma urea nitrogen/creatinine mass ratio 15 NRG Serum or plasma creatinine measurement with calculation of estimated glomerular filtration rate > NRG Serum or plasma glucose measurement (mass/volume) 221 mg/dL 70-105 Serum or plasma calcium measurement (mass/volume) 8.8 mg/dL 8.5-10.1 Magnesium - 10/14/17 05:25 Magnesium 1.3 mg/dL 1.8-2.4 Capillary blood glucose measurement by glucometer (mass/volume) - 10/14/17 11: 44 Capillary blood glucose measurement by glucometer (mass/volume) 218 mg/dL 70-110 Capillary blood glucose measurement by glucometer (mass/volume) - 10/14/17 14: 57 Capillary blood glucose measurement by glucometer (mass/volume) 293 mg/dL 70-110 Capillary blood glucose measurement by glucometer (mass/volume) - 10/14/17 20: 08 Capillary blood glucose measurement by glucometer (mass/volume) 281 mg/dL 70-110 Complete urinalysis with reflex to culture - 10/15/17 03:57 Urine color determination YELLOW NRG Urine clarity determination SLIGHTLY CLOUDY NRG Urine pH measurement by test strip 7 5-9 Specific gravity of urine by test strip 1.010 1.016- 1.022 Urine protein assay by test strip, semi-quantitative NEGATIVE NEGATIVE Urine glucose detection by automated test strip NEGATIVE NEGATIVE Erythrocytes detection in urine sediment by light microscopy 5+ NEGATIVE Urine ketones detection by automated test strip NEGATIVE NEGATIVE Urine nitrite detection by test strip NEGATIVE NEGATIVE Urine total bilirubin detection by test strip NEGATIVE NEGATIVE Urine urobilinogen measurement by automated test strip (mass/volume) NORMAL NORMAL Urine leukocyte esterase detection by dipstick 3+ NEGATIVE Automated urine sediment erythrocyte count by microscopy (number/high power field) [HPF] NRG Automated urine sediment leukocyte count by microscopy (number/high power field ) [HPF] NRG Bacteria detection in urine sediment by light microscopy NEGATIVE NRG Squamous epithelial cells detection in urine sediment by light microscopy RARE NRG Crystals detection in urine sediment by light microscopy NONE NRG Casts detection in urine sediment by light microscopy NONE NRG Mucus detection in urine sediment by light microscopy NEGATIVE NRG Complete urinalysis with reflex to culture NO NRG Automated blood complete blood count (hemogram) panel - 10/15/17 05:01 Blood leukocytes automated count (number/volume) 6.6 10*3/uL 4.3-11.0 Blood erythrocytes automated count (number/volume) 3.39 10*6/uL 4.35-5.85 Venous blood hemoglobin measurement (mass/volume) 9.6 g/dL 11.5-16.0 Blood hematocrit (volume fraction) 30 % 35-52 Automated erythrocyte mean corpuscular volume 89 [foz_us] 80-99 Automated erythrocyte mean corpuscular hemoglobin (mass per erythrocyte) 28 pg 25-34 Automated erythrocyte mean corpuscular hemoglobin concentration measurement ( mass/volume) 32 g/dL 32-36 Automated erythrocyte distribution width ratio 17.2 % 10.0-14.5 Automated blood platelet count (count/volume) 127 10*3/uL 130-400 Automated blood platelet mean volume measurement 11.7 [foz_us] 7.4-10.4 Whole blood basic metabolic panel - 10/15/17 05:01 Serum or plasma sodium measurement (moles/volume) 143 mmol/L 135-145 Serum or plasma potassium measurement (moles/volume) 4.1 mmol/L 3.6-5.0 Serum or plasma chloride measurement (moles/volume) 117 mmol/L 98-107 Carbon dioxide 16 mmol/L 21-32 Serum or plasma anion gap determination (moles/volume) 10 mmol/L 5-14 Serum or plasma urea nitrogen measurement (mass/volume) 7 mg/dL 7-18 Serum or plasma creatinine measurement (mass/volume) 0.60 mg/dL 0.60-1.30 Serum or plasma urea nitrogen/creatinine mass ratio 12 NRG Serum or plasma creatinine measurement with calculation of estimated glomerular filtration rate > NRG Serum or plasma glucose measurement (mass/volume) 139 mg/dL 70-105 Serum or plasma calcium measurement (mass/volume) 9.1 mg/dL 8.5-10.1 Magnesium - 10/15/17 05:01 Magnesium 1.4 mg/dL 1.8-2.4 Capillary blood glucose measurement by glucometer (mass/volume) - 10/15/17 05: 05 Capillary blood glucose measurement by glucometer (mass/volume) 120 mg/dL 70-110 Capillary blood glucose measurement by glucometer (mass/volume) - 10/15/17 10: 13 Capillary blood glucose measurement by glucometer (mass/volume) 236 mg/dL 70-110 Capillary blood glucose measurement by glucometer (mass/volume) - 10/15/17 15: 05 Capillary blood glucose measurement by glucometer (mass/volume) 298 mg/dL 70-110 Capillary blood glucose measurement by glucometer (mass/volume) - 10/15/17 19: 56 Capillary blood glucose measurement by glucometer (mass/volume) 164 mg/dL 70-110 Capillary blood glucose measurement by glucometer (mass/volume) - 10/16/17 05: 39 Capillary blood glucose measurement by glucometer (mass/volume) 123 mg/dL 70-110 Capillary blood glucose measurement by glucometer (mass/volume) - 10/16/17 09: 24 Capillary blood glucose measurement by glucometer (mass/volume) 159 mg/dL 70-110 Capillary blood glucose measurement by glucometer (mass/volume) - 10/16/17 14: 24 Capillary blood glucose measurement by glucometer (mass/volume) 194 mg/dL 70-110 Capillary blood glucose measurement by glucometer (mass/volume) - 10/16/17 20: 22 Capillary blood glucose measurement by glucometer (mass/volume) 235 mg/dL 70-110 Capillary blood glucose measurement by glucometer (mass/volume) - 10/17/17 05: 56 Capillary blood glucose measurement by glucometer (mass/volume) 184 mg/dL 70-110 Automated blood complete blood count (hemogram) panel - 10/17/17 08:05 Blood leukocytes automated count (number/volume) 5.2 10*3/uL 4.3-11.0 Blood erythrocytes automated count (number/volume) 3.42 10*6/uL 4.35-5.85 Venous blood hemoglobin measurement (mass/volume) 9.7 g/dL 11.5-16.0 Blood hematocrit (volume fraction) 30 % 35-52 Automated erythrocyte mean corpuscular volume 87 [foz_us] 80-99 Automated erythrocyte mean corpuscular hemoglobin (mass per erythrocyte) 28 pg 25-34 Automated erythrocyte mean corpuscular hemoglobin concentration measurement ( mass/volume) 33 g/dL 32-36 Automated erythrocyte distribution width ratio 17.1 % 10.0-14.5 Automated blood platelet count (count/volume) 127 10*3/uL 130-400 Automated blood platelet mean volume measurement 10.8 [foz_us] 7.4-10.4 Whole blood basic metabolic panel - 10/17/17 08:05 Serum or plasma sodium measurement (moles/volume) 139 mmol/L 135-145 Serum or plasma potassium measurement (moles/volume) 3.7 mmol/L 3.6-5.0 Serum or plasma chloride measurement (moles/volume) 110 mmol/L 98-107 Carbon dioxide 22 mmol/L 21-32 Serum or plasma anion gap determination (moles/volume) 7 mmol/L 5-14 Serum or plasma urea nitrogen measurement (mass/volume) 9 mg/dL 7-18 Serum or plasma creatinine measurement (mass/volume) 0.59 mg/dL 0.60-1.30 Serum or plasma urea nitrogen/creatinine mass ratio 15 NRG Serum or plasma creatinine measurement with calculation of estimated glomerular filtration rate > NRG Serum or plasma glucose measurement (mass/volume) 204 mg/dL 70-105 Serum or plasma calcium measurement (mass/volume) 8.7 mg/dL 8.5-10.1 Capillary blood glucose measurement by glucometer (mass/volume) - 10/17/17 11: 03 Capillary blood glucose measurement by glucometer (mass/volume) 311 mg/dL 70-110 Capillary blood glucose measurement by glucometer (mass/volume) - 10/17/17 14: 58 Capillary blood glucose measurement by glucometer (mass/volume) 364 mg/dL 70-110 Capillary blood glucose measurement by glucometer (mass/volume) - 10/17/17 19: 17 Capillary blood glucose measurement by glucometer (mass/volume) 279 mg/dL 70-110 Capillary blood glucose measurement by glucometer (mass/volume) - 10/18/17 06: 55 Capillary blood glucose measurement by glucometer (mass/volume) 212 mg/dL 70-110 Capillary blood glucose measurement by glucometer (mass/volume) - 10/18/17 10: 10 Capillary blood glucose measurement by glucometer (mass/volume) 336 mg/dL 70-110 Capillary blood glucose measurement by glucometer (mass/volume) - 10/18/17 13: 42 Capillary blood glucose measurement by glucometer (mass/volume) 299 mg/dL 70-110 Complete urinalysis with reflex to culture - 10/23/17 18:32 Urine color determination YELLOW NRG Urine clarity determination SLIGHTLY CLOUDY NRG Urine pH measurement by test strip 5 5-9 Specific gravity of urine by test strip 1.020 1.016- 1.022 Urine protein assay by test strip, semi-quantitative 1+ NEGATIVE Urine glucose detection by automated test strip NEGATIVE NEGATIVE Erythrocytes detection in urine sediment by light microscopy 4+ NEGATIVE Urine ketones detection by automated test strip NEGATIVE NEGATIVE Urine nitrite detection by test strip NEGATIVE NEGATIVE Urine total bilirubin detection by test strip NEGATIVE NEGATIVE Urine urobilinogen measurement by automated test strip (mass/volume) 1 mg/dL NORMAL Urine leukocyte esterase detection by dipstick 3+ NEGATIVE Automated urine sediment erythrocyte count by microscopy (number/high power field) [HPF] NRG Automated urine sediment leukocyte count by microscopy (number/high power field ) [HPF] NRG Bacteria detection in urine sediment by light microscopy MODERATE NRG Squamous epithelial cells detection in urine sediment by light microscopy 2-5 NRG Crystals detection in urine sediment by light microscopy NONE NRG Casts detection in urine sediment by light microscopy NONE NRG Mucus detection in urine sediment by light microscopy NEGATIVE NRG Complete urinalysis with reflex to culture YES NRG Bacterial urine culture - 10/23/17 18:32 Bacterial urine culture [id number] NRG COLONY COUNT >100,000/ML NRG FTX;REPORTABLE 2 COLONIES, PLEASE NOTIFY MICRO AT EXT. NRG FREE TEXT ENTRY 2 PLUS, NRG FREE TEXT ENTRY 3 MIXED GRAM POSITIVES <10,000/ML NRG Automated blood complete blood count (hemogram) panel - 10/26/17 12:35 Blood leukocytes automated count (number/volume) 6.4 10*3/uL 4.3-11.0 Blood erythrocytes automated count (number/volume) 3.82 10*6/uL 4.35-5.85 Venous blood hemoglobin measurement (mass/volume) 10.7 g/dL 11.5-16.0 Blood hematocrit (volume fraction) 34 % 35-52 Automated erythrocyte mean corpuscular volume 89 [foz_us] 80-99 Automated erythrocyte mean corpuscular hemoglobin (mass per erythrocyte) 28 pg 25-34 Automated erythrocyte mean corpuscular hemoglobin concentration measurement ( mass/volume) 32 g/dL 32-36 Automated erythrocyte distribution width ratio 16.2 % 10.0-14.5 Automated blood platelet count (count/volume) 210 10*3/uL 130-400 Automated blood platelet mean volume measurement 10.9 [foz_us] 7.4-10.4 Comprehensive metabolic panel - 10/26/17 12:35 Serum or plasma sodium measurement (moles/volume) 141 mmol/L 135-145 Serum or plasma potassium measurement (moles/volume) 4.1 mmol/L 3.6-5.0 Serum or plasma chloride measurement (moles/volume) 102 mmol/L 98-107 Carbon dioxide 26 mmol/L 21-32 Serum or plasma anion gap determination (moles/volume) 13 mmol/L 5-14 Serum or plasma urea nitrogen measurement (mass/volume) 14 mg/dL 7-18 Serum or plasma creatinine measurement (mass/volume) 0.70 mg/dL 0.60-1.30 Serum or plasma urea nitrogen/creatinine mass ratio 20 NRG Serum or plasma creatinine measurement with calculation of estimated glomerular filtration rate > NRG Serum or plasma glucose measurement (mass/volume) 249 mg/dL 70-105 Serum or plasma calcium measurement (mass/volume) 9.6 mg/dL 8.5-10.1 Serum or plasma total bilirubin measurement (mass/volume) 0.5 mg/dL 0.1-1.0 Serum or plasma alkaline phosphatase measurement (enzymatic activity/volume) 132 U/L 40-136 Serum or plasma aspartate aminotransferase measurement (enzymatic activity/ volume) 37 U/L 5-34 Serum or plasma alanine aminotransferase measurement (enzymatic activity/volume ) 19 U/L 0-55 Serum or plasma protein measurement (mass/volume) 6.8 g/dL 6.4-8.2 Serum or plasma albumin measurement (mass/volume) 3.4 g/dL 3.2-4.5 THYROID STIMULATING HORMONE - 10/26/17 12:35 THYROID STIMULATING HORMONE 1.14 u[iU]/mL 0.35-4.94 Encounters ACCT No. Visit Date/Time Discharge Status Pt. Type Provider Facility Loc./Unit Complaint [id number] 10/26/2017 12:15:00 10/26/2017 23:59:59 [facility] Outpatient TU SANCHEZ DO [facility] RAD ALTERED MENTAL STATUS ,DIABETES,CAD [id number] 10/23/2017 18:31:00 10/23/2017 23:59:59 [facility] Outpatient TU SANCHEZ DO [facility] LABNPT UA REFLEX TO CULTURE [id number] 10/20/2017 12:17:00 10/20/2017 23:59:59 [facility] Outpatient TU SANCHEZ DO [facility] RAD PAIN IN LEFT AND HIP [id number] 10/13/2017 12:06:00 10/18/2017 14:16:00 DIS Inpatient TU SANCHEZ DO [facility] 4TH UTI, HYPOMAGNEISEMIA, FALL,AMS [id number] 09/19/2017 22:47:00 09/22/2017 12:14:00 DIS Inpatient TU SANCHEZ DO [facility] 4TH ACUTE DELIRIUM UTI , ELEVATED INR [id number] 04/18/2017 09:59:00 04/18/2017 23:59:59 CLS Outpatient TU SANCHEZ DO [facility] RAD SCREENING [id number] 03/08/2017 06:37:00 03/08/2017 23:59:59 CLS Outpatient PETROS VELÁZQUEZ FACC, JUNG ALMEIDA CCDS [facility] CARD CAD I25.10 [id number] 01/24/2017 09:40:00 01/24/2017 23:59:59 CLS Outpatient TU SANCHEZ DO [facility] RAD LEFT LEG SWELLING [id number] 11/17/2016 11:27:00 11/17/2016 23:59:59 CLS Outpatient EMELINA AYERS MD [facility] RAD HEMATURIA [id number] 11/02/2016 10:21:00 11/02/2016 23:59:59 CLS Outpatient TU SANCHEZ DO [facility] LAB FREQUENT UTI [id number] 04/16/2016 09:34:00 04/16/2016 23:59:59 CLS Outpatient TU SANCHEZ DO [facility] RAD YEARLY [id number] 10/20/2015 10:18:00 10/20/2015 23:59:59 CLS Outpatient TU SANCHEZ DO [facility] RAD THYROID MASS [id number] 10/09/2015 10:42:00 10/09/2015 23:59:59 CLS Outpatient TU SANCHEZ DO [facility] RAD THYROID NODULE SEEN ON CT [id number] 10/02/2015 13:45:00 10/02/2015 23:59:59 CLS Outpatient TU SANCHEZ DO [facility] RAD COPD [id number] 09/14/2015 20:59:00 09/22/2015 18:30:00 DIS Inpatient PRO MATTHEWS DO [facility] 4TH CLINICAL PNEUMONIA WITH HYPOXIA; FAILURE OF OUTPT [id number] 09/18/2015 12:46:00 09/18/2015 23:59:59 CLS Preadmit TU SANCHEZ DO SWB [id number] 08/20/2015 09:05:00 08/20/2015 13:30:00 DIS Outpatient VJ VILLATORO MD [facility] SDC BLOOD IN STOOL,ANEMIA [id number] 08/18/2015 06:02:00 08/18/2015 23:59:59 CLS Outpatient VJ VILLATORO MD [facility] PREOP BLOOD IN STOOL,ANEMIA [id number] 04/15/2015 11:04:00 04/15/2015 23:59:59 CLS Outpatient CECYYULI TU Lilliam [facility] RAD SCREENING [id number] 11/19/2014 07:24:00 11/19/2014 23:59:59 CLS Outpatient PETROS VELÁZQUEZ FACC, JUNG ALMEIDA CCDS [facility] CARD CAD HLE SINUS NODE DYSFUNCTION [id number] 04/22/2014 11:19:00 04/22/2014 23:59:59 CLS Outpatient TU SANCHEZ DO [facility] RAD NECK PAIN [id number] 04/11/2014 11:19:00 04/11/2014 23:59:59 CLS Outpatient TU SANCHEZ DO [facility] RAD SCREENING [id number] 04/09/2013 09:24:00 04/09/2013 23:59:59 CLS Outpatient TU SANCHEZ DO [facility] RAD SCREENING [id number] 10/01/2015 09:23:00 Document Registration [id number] 08/12/2014 14:22:00 Document Registration [id number] 09/12/2012 09:26:00 Document Registration [id number] 09/07/2012 06:52:00 Document Registration [id number] 03/13/2012 10:01:00 Document Registration [id number] 11/02/2011 09:53:00 Document Registration [id number] 03/11/2011 09:07:00 Document Registration [id number] 08/04/2010 15:00:00 Document Registration [id number] 03/09/2010 08:54:00 Document Registration [id number] 08/01/2009 15:04:00 Document Registration [id number] 07/24/2009 09:41:00 Document Registration [id number] 03/07/2009 08:49:00 Document Registration [id number] 11/19/2014 07:26:23 ACT Document Registration
[2017-11-16] MEDS ORDERED: fentaNYL INJECTION 100 MCG/2 ML AMP IVP ONE (10:30)
[2017-11-16 10:54] VITALS: BP 121/58
[2017-11-16] MEDS ORDERED: CATHETER FLUSH 10 ML SYR IV PRN (11:15)
[2017-11-16] MEDS ORDERED: ONDANSETRON 4 MG/2 ML (SDV) Z0FRAN IV PRN (11:15)
[2017-11-16] MEDS: D5 NS 1000 ML IV SOLUTION 1,000 ML IV SCH ×2 (11:30→22:24)
[2017-11-16] MEDS: MAGNESIUM 1 GM/D5W 100 ML IVPB IV SCH ×2 (11:31→13:35)
[2017-11-16] MEDS ORDERED: NAPR-915 PO (11:33)
[2017-11-16] MEDS ORDERED: ESTR42.52 VG (11:33)
[2017-11-16] MEDS: inSUlin ASPART (NovoLOG) 1 UNIT/0.01 ML (CHARGE PER UNIT) SC SCH ×4 (11:34→23:44)
[2017-11-16 12:39] VITALS: BP 121/58
--- NOTE | 2017-11-16 13:08 | Consultation ---
History of Present Illness History of Present Illness Patient Consulted On(terrence/time) 11/16/17 13:03 Time Seen by Provider: 13:00 History of Present Illness Resident of [facility] assisted living. Patient fell. Patient hurt right hip. Patient came out to the emergency room. Patient has fractured right femoral neck. Patient has history of CAD. Patient is diabetic. Patient knows who I am and the date Allergies and Home Medications Allergies Coded Allergies: No Known Drug Allergies (Verified , 08/20/15) Home Medications Acetaminophen 500 Mg Tablet, 500 MG PO Q6H PRN for PAIN-MILD, (Reported) Ascorbic Acid 500 Mg Tablet, 500 MG PO DAILY, (Reported) Aspirin 81 Mg Tablet.dr, 81 MG PO DAILY, (Reported) Cranberry Fruit 450 Mg Tablet, 450 MG PO DAILY, (Reported) Cyanocobalamin 1,000 Mcg/Ml Inj, 1,000 MCG IJ Mo, (Reported) Dexlansoprazole 60 Mg Shaun.bp, 60 MG PO DAILY, (Reported) Divalproex Sodium 125 Mg Cap, 125 MG PO TID Prescribed by: ANSHUL JOSEPH on 10/18/17 1200 Donepezil HCl 5 Mg Tablet, 5 MG PO HS Prescribed by: ANSHUL JOSEPH on 10/18/17 1200 Estradiol 42.5 Gm Cream.appl, 1 UNIT VG TuFr, (Reported) Gabapentin 300 Mg Capsule, 300 MG PO TID, (Reported) Insulin Aspart 100 Unit/1 Ml Susp, SQ BIDAC, (Reported) 60-200 =0 UNITS 201-250=3 UNITS 251-300=5 UNITS 301-350=7 UNITS 351-400=9 UNITS IF GREATER THAN 400 CALL Insulin Glargine,Hum.rec.anlog 100 Unit/1 Ml Insuln.pen, 10 UNITS SC HS, ( Reported) Loratadine 10 Mg Tablet, 10 MG PO DAILY, (Reported) Memantine HCl 5 Mg Tablet, 5 MG PO DAILY Prescribed by: ANSHUL JOSEPH on 10/18/17 1200 Metformin HCl 500 Mg Tablet, 1,000 MG PO BID, (Reported) TAKES 2 (500MG) TABLETS Metoprolol Succinate 25 Mg Tab.er.24h, 25 MG PO DAILY, (Reported) Naproxen 500 Mg Tablet, 500 MG PO BID, (Reported) Patient Home Medication List Home Medication List Reviewed: No Past Aylhjng-Prgiie-Vfuoln Hx Patient Social History Alcohol Use: Denies Use Recreational Drug Use: No Smoking Status: Former Smoker Former Smoker, Quit: November 16, 1998 Recent Foreign Travel: No Contact w/Someone Who Travel: No Recent Infectious Disease Expo: No Recent Hopitalizations: Yes (yes 09/22/17 for uti) Immunizations Up To Date Tetanus Booster (TDap): Unknown PED Vaccines UTD: Yes Date of Pneumonia Vaccine: Mar 15, 2015 Date of Influenza Vaccine: Feb 18, 2015 Seasonal Allergies Seasonal Allergies: No Past Medical History Surgeries: Yes (KNEE SCOPE, CARDIAC CATHS/ ANGIOPLASTY/MULTIPLE STENTS; EGD/ COLONOSCOPY) Section, Coronary Stent, Orthopedic Respiratory: No Currently Using CPAP: No Currently Using BIPAP: No Cardiac: Yes Chronic Edema/Swelling, Coronary Artery Disease, Heart Attack, High Cholesterol , Hypertension Neurological: No Dementia : No Reproductive Disorders: No Sexually Transmitted Disease: No HIV/AIDS: No Genitourinary: Yes (recurrent bladder infections) UTI-Chronic Gastrointestinal: Yes Gastroesophageal Reflux Musculoskeletal: Yes Arthritis Endocrine: Yes Diabetes, Insulin dep HEENT: No Loss of Vision: Bilateral Hearing Impairment: Hard of Hearing Cancer: No Psychosocial: No Integumentary: No Blood Disorders: No Adverse Reaction/Blood Tranf: No Family Medical History Alzheimer's disease 19 MOTHER G8 SISTER Diabetes mellitus G8 BROTHER Parkinson's disease 19 MOTHER Review of Systems-General Constitutional: no symptoms reported EENTM: no symptoms reported Respiratory: no symptoms reported Cardiovascular: no symptoms reported Gastrointestinal: no symptoms reported Genitourinary: other (Has UTI) Physical Exam-General Problems Physical Exam Vital Signs Vital Signs - First Documented 11/16/17 07:22 Temp 98.0 Pulse 86 Resp 16 B/P (MAP) 103/53 (70) Pulse Ox 97 O2 Delivery Room Air Capillary Refill : Less Than 3 SecondsLess Than 3 Seconds General Appearance: WD/WN Eyes: Bilateral Eye Normal Inspection HEENT: normal ENT inspection Neck: non-tender, full range of motion Respiratory: lungs clear, no respiratory distress, no accessory muscle use Cardiovascular: regular rate, rhythm, no murmur Gastrointestinal: non tender, soft Assessment/Plan Assessment/Plan Admission Diagnosis/Plan Right hip fracture. Coronary artery disease. UTI. Hypomagnesemia. Hypokalemia. Diabetes Admission Status: Inpatient Order (span 2 midnights) Reason for Inpatient Admission: Right femoral neck fracture. Diabetes. Coronary artery disease. UTI Clinical Quality Measures DVT/VTE Risk/Contraindication: Risk Factor Score Per Nursin RFS Level Per Nursing on Admit: 4+=Very High TU SANCHEZ DO November 16, 2017 13:08
[2017-11-16] MEDS: fentaNYL INJECTION 100 MCG/2 ML AMP IV PRN ×2 (13:34→16:21)
[2017-11-16] MEDS ORDERED: TRAM50TA2 PO (13:55)
[2017-11-16] MEDS ORDERED: DIVA125C10 PO (13:55)
[2017-11-16] MEDS ORDERED: MAGN400O7 PO (13:55)
[2017-11-16 15:55] VITALS: BP 118/58
[2017-11-16 19:30] VITALS: BP 121/70
[2017-11-17] VITALS: BP 124/60
[2017-11-17] MEDS: D5 NS 1000 ML IV SOLUTION 1,000 ML IV SCH ×3 (00:18→23:47)
[2017-11-17] MEDS: fentaNYL INJECTION 100 MCG/2 ML AMP IV PRN ×5 (00:45→11:20)
[2017-11-17 05:00] VITALS: BP 148/67
[2017-11-17] MEDS: inSUlin ASPART (NovoLOG) 1 UNIT/0.01 ML (CHARGE PER UNIT) SC SCH ×6 (05:07→23:43)
[2017-11-17 05:54] LABS: BASOPHILS % (AUTO) 1 % (0-10); EOSINOPHILS # (AUTO) 0.1 10^3/uL (0.0-0.3); EOSINOPHILS % (AUTO) 3 % (0-10); HEMATOCRIT 33 % (35-52); HEMOGLOBIN 10.5 G/DL (11.5-16.0); LYMPHOCYTES # (AUTO) 1.1 X 10^3 (1.0-4.0); LYMPHOCYTES % (AUTO) 25 % (12-44); MEAN CORPUSCULAR HGB CONC 31 G/DL (32-36); MEAN CORPUSCULAR VOLUME 87 FL (80-99); MEAN PLATELET VOLUME 10.9 FL (7.4-10.4); MONOCYTES # (AUTO) 0.4 X 10^3 (0.0-1.0); MONOCYTES % (AUTO) 8 % (0-12); NEUTROPHILS # (AUTO) 2.7 X 10^3 (1.8-7.8); NEUTROPHILS % (AUTO) 64 % (42-75); PLATELET COUNT 100 10^3/uL (130-400); RED BLOOD COUNT 3.82 10^6/uL (4.35-5.85); WHITE BLOOD COUNT 4.3 10^3/uL (4.3-11.0)
[2017-11-17 05:56] LABS: MEAN CORPUSCULAR HEMOGLOBIN 27 PG (25-34)
[2017-11-17 06:17] LABS: ALANINE AMINOTRANSFERASE 11 U/L (0-55); ALBUMIN 2.8 GM/DL (3.2-4.5); ALKALINE PHOSPHATASE 76 U/L (40-136); BILIRUBIN,TOTAL 0.4 MG/DL (0.1-1.0); BUN/CREATININE RATIO 13; CALCIUM 8.3 MG/DL (8.5-10.1); CARBON DIOXIDE 25 MMOL/L (21-32); CHLORIDE 108 MMOL/L (98-107); CREATININE SERUM 0.69 MG/DL (0.60-1.30); GFR ESTIMATED > 60; GLUCOSE 280 MG/DL (70-105); MAGNESIUM 1.3 MG/DL (1.8-2.4); POTASSIUM 4.4 MMOL/L (3.6-5.0); SODIUM 142 MMOL/L (135-145); TOTAL PROTEIN 5.5 GM/DL (6.4-8.2)
--- NOTE | 2017-11-17 07:52 | Progress Note (SOAP) ---
Subjective Time Seen by Provider: 07:50 Subjective/Events-last exam Patient ready for surgery. Patient has pain in the hip. Patient's blood tests look good Objective Exam Vital Signs Date Time Temp Pulse Resp B/P (MAP) Pulse Ox O2 Delivery O2 Flow Rate FiO2 11/17/17 05:00 97.1 99 16 148/67 (94) 95 Nasal Cannula 2.00 11/17/17 01:00 102 11/17/17 00:00 97.7 103 17 124/60 (81) 93 Nasal Cannula 2.00 11/16/17 19:30 97.3 94 18 121/70 (87) 97 Nasal Cannula 2.00 11/16/17 19:00 91 11/16/17 15:55 96 Nasal Cannula 2.00 11/16/17 15:55 97.3 84 20 118/58 (78) 83 Room Air 11/16/17 13:00 94 11/16/17 12:39 96.5 88 20 121/58 (79) 91 Room Air 11/16/17 10:54 96.5 88 20 121/58 (79) 91 Room Air 11/16/17 10:40 Room Air 11/16/17 10:37 98.0 82 16 105/60 (70) 97 11/16/17 10:35 96.5 11/16/17 09:12 98.0 I & O 11/17/17 07:00 Intake Total 800 ml Output Total 1450 ml Balance -650 ml Capillary Refill : Less Than 3 SecondsLess Than 3 Seconds General Appearance: No Apparent Distress, WD/WN HEENT: Normal ENT Inspection Neck: Full Range of Motion, Normal Inspection Respiratory: Lungs Clear, No Accessory Muscle Use, No Respiratory Distress Cardiovascular: Regular Rate, Rhythm, No Murmur Gastrointestinal: non tender, soft Results Lab Laboratory Tests 11/16/17 07:56 11/17/17 05:44 Laboratory Tests 11/16/17 07:56: White Blood Count 4.2L, Red Blood Count 4.18L, Hemoglobin 11.4L, Hematocrit 37, Mean Corpuscular Volume 87, Mean Corpuscular Hemoglobin 27, Mean Corpuscular Hemoglobin Concent 31L, Red Cell Distribution Width 15.8H, Platelet Count 137, Mean Platelet Volume 10.9H, Neutrophils (%) (Auto) 41L, Lymphocytes (%) (Auto) 47H, Monocytes (%) (Auto) 8, Eosinophils (%) (Auto) 4, Basophils (%) (Auto) 1, Neutrophils # (Auto) 1.7L, Lymphocytes # (Auto) 1.9, Monocytes # (Auto) 0.4, Eosinophils # (Auto) 0.2, Basophils # (Auto) 0.0, Sodium Level 142, Potassium Level 4.0, Chloride Level 103, Carbon Dioxide Level 27, Anion Gap 12, Blood Urea Nitrogen 12, Creatinine 0.80, Estimat Glomerular Filtration Rate > 60, BUN/ Creatinine Ratio 15, Glucose Level 73, Calcium Level 9.0, Magnesium Level 0.9*L , Total Bilirubin 0.5, Aspartate Amino Transf (AST/SGOT) 33, Alanine Aminotransferase (ALT/SGPT) 11, Alkaline Phosphatase 85, Total Protein 6.4, Albumin 3.3, Valproic Acid (Depakene) Level 16.2L 11/16/17 11:04: Glucometer 78 11/16/17 16:10: Glucometer 105 11/16/17 19:53: Glucometer 125H 11/16/17 23:35: Glucometer 256H 11/17/17 04:48: Glucometer 272H 11/17/17 05:44: White Blood Count 4.3, Red Blood Count 3.82L, Hemoglobin 10.5L, Hematocrit 33L, Mean Corpuscular Volume 87, Mean Corpuscular Hemoglobin 27, Mean Corpuscular Hemoglobin Concent 31L, Red Cell Distribution Width 16.0H, Platelet Count 100L, Mean Platelet Volume 10.9H, Neutrophils (%) (Auto) 64, Lymphocytes (%) (Auto) 25 , Monocytes (%) (Auto) 8, Eosinophils (%) (Auto) 3, Basophils (%) (Auto) 1, Neutrophils # (Auto) 2.7, Lymphocytes # (Auto) 1.1, Monocytes # (Auto) 0.4, Eosinophils # (Auto) 0.1, Basophils # (Auto) 0.0, Sodium Level 142, Potassium Level 4.4, Chloride Level 108H, Carbon Dioxide Level 25, Anion Gap 9, Blood Urea Nitrogen 9, Creatinine 0.69, Estimat Glomerular Filtration Rate > 60, BUN/ Creatinine Ratio 13, Glucose Level 280H, Calcium Level 8.3L, Magnesium Level 1.3L, Total Bilirubin 0.4, Aspartate Amino Transf (AST/SGOT) 25, Alanine Aminotransferase (ALT/SGPT) 11, Alkaline Phosphatase 76, Total Protein 5.5L, Albumin 2.8L 11/17/17 07:29: Glucometer 255H Microbiology 11/16/17 Urine Culture - Preliminary, Resulted Sent To [facility] Assessment/Plan Assessment/Plan Assess & Plan/Chief Complaint Right hip fracture. Coronary artery disease. UTI. Hypomagnesemia. Hypokalemia. Diabetes. . 11/17/17. Right hip fracture. Coronary artery disease. UTI. Hypomagnesemia. Hypokalemia. Diabetes. Patient ready for surgery Clinical Quality Measures DVT/VTE Risk/Contraindication: Risk Factor Score Per Nursin RFS Level Per Nursing on Admit: 4+=Very High Contraindications-Pharm: Other *list below* TU SANCHEZ DO November 17, 2017 07:52
[2017-11-17] MEDS: MAGNESIUM 1 GM/100 ML IVPB 100 ML IV SCH ×4 (08:08→12:15)
[2017-11-17 08:36] VITALS: BP 132/59
[2017-11-17] MEDS ORDERED: cefTRIAXone 1 GM/NS 50 ML IVPB IV SCH ×2 (09:00)
[2017-11-17] MEDS: metFORMIN 500 MG (GLUCOPHAGE) TAB PO SCH ×2 (09:01→16:38)
[2017-11-17] MEDS: DIVALPROX SPRINKLE 125 MG (DEPAKOTE) CAP PO SCH ×3 (09:08→20:41)
--- NOTE | 2017-11-17 10:39 | History & Physicial ---
History of Present Illness History of Present Illness Reason for visit/HPI Ms. Mcguire is an 82 y/o female [place] resident that presents with CC of acute onset of severe Right hip pain secondary to sustaining a mechanical GLF. She subsequently presented to the [facility] ED for evaluation. Upon presentation, plain radiographs of the Right hip demonstrated a displaced fracture of the Right femoral neck. Orthopedic service was consulted for definitive management of her injury. She denies head trauma/neck pain or LOC; also denies injuries to her other extremities. She has no other musculoskeletal complaints. Date of Admission November 16, 2017 at 09:22 Date Seen by Provider: November 16, 2017 Time Seen by Provider: 21:30 I consulted on this patient on 11/16/170 Attending Physician Johnny Amin DO Admitting Physician Johnny Amin DO Consult Allergies and Home Medications Allergies Coded Allergies: No Known Drug Allergies (Verified , 08/20/15) Home Medications Acetaminophen 500 Mg Tablet, 500 MG PO Q6H PRN for PAIN-MILD, (Reported) Ascorbic Acid 500 Mg Tablet, 500 MG PO DAILY, (Reported) Aspirin 81 Mg Tablet.dr, 81 MG PO DAILY, (Reported) Cranberry Fruit 450 Mg Tablet, 450 MG PO DAILY, (Reported) Cyanocobalamin 1,000 Mcg/Ml Inj, 1,000 MCG IJ EVERY OTHER TUESDAY, (Reported) Divalproex Sodium 125 Mg Cap.sprink, 125 MG PO TID, (Reported) Insulin Aspart 100 Unit/1 Ml Susp, SQ BIDAC, (Reported) 60-200 =0 UNITS 201-250=3 UNITS 251-300=5 UNITS 301-350=7 UNITS 351-400=9 UNITS IF GREATER THAN 400 CALL Insulin Glargine,Hum.rec.anlog 100 Unit/1 Ml Insuln.pen, 10 UNITS SC HS, ( Reported) Loratadine 10 Mg Tablet, 10 MG PO DAILY, (Reported) Magnesium Hydroxide 400 Mg/5 Ml Oral.susp, 2 TBS PO DAILY PRN for CONSTIPATION- 7TH LINE, (Reported) Metformin HCl 500 Mg Tablet, 1,000 MG PO BID, (Reported) TAKES 2 (500MG) TABLETS Metoprolol Succinate 25 Mg Tab.er.24h, 25 MG PO DAILY, (Reported) Tramadol HCl 50 Mg Tablet, 50 MG PO TID, (Reported) Patient Home Medication List Home Medication List Reviewed: Yes Past Oabzeeb-Wabpff-Pqdleo Hx Patient Social History Alcohol Use: Denies Use Recreational Drug Use: No Smoking Status: Former Smoker Former Smoker, Quit: November 16, 1998 Physical Abuse Screen: No Sexual Abuse: No Recent Foreign Travel: No Contact w/other who traveled: No Recent Hopitalizations: Yes (yes 09/22/17 for uti) Recent Infectious Disease Expo: No Immunizations Up To Date Tetanus Booster (TDap): Unknown Pediatric: Yes Date of Pneumonia Vaccine: Mar 15, 2015 Date of Influenza Vaccine: Feb 18, 2015 Seasonal Allergies Seasonal Allergies: No Surgeries Yes (KNEE SCOPE, CARDIAC CATHS/ ANGIOPLASTY/MULTIPLE STENTS; EGD/COLONOSCOPY) Section, Coronary Stent, Orthopedic Respiratory No Currently Using CPAP: No Currently Using BIPAP: No Cardiovascular Yes Chronic Edema/Swelling, Coronary Artery Disease, Heart Attack, High Cholesterol , Hypertension Neurological No Dementia Reproductive System : No Hx Reproductive Disorders: No Sexually Transmitted Disease: No HIV/AIDS: No Genitourinary Yes (recurrent bladder infections) UTI-Chronic Gastrointestinal Yes Gastroesophageal Reflux Musculoskeletal Yes Arthritis Endocrine History of Endocrine Disorders: Yes Endocrine Disorders: Diabetes, Insulin dep HEENT History of HEENT Disorders: No Loss of Vision: Bilateral Hearing Impairment: Hard of Hearing Cancer No Psychosocial History of Psychiatric Problem: No Integumentary History of Skin or Integumenta: No Blood Transfusions History of Blood Disorders: No Adverse Reaction to a Blood Tr: No Family Medical History Family Hx: Alzheimer's disease 19 MOTHER G8 SISTER Diabetes mellitus G8 BROTHER Parkinson's disease 19 MOTHER Constitutional: no symptoms reported EENTM: no symptoms reported Respiratory: no symptoms reported Cardiovascular: no symptoms reported Gastrointestinal: no symptoms reported Genitourinary: no symptoms reported : No Musculoskeletal: joint pain, other (severe /right hip pain) Skin: no symptoms reported Psychiatric/Neurological: No Symptoms Reported All Other Systems Reviewed Negative Unless Noted: Yes Physical Exam Vital Signs Vital Signs - First Documented 11/16/17 11/16/17 07:22 15:55 Temp 98.0 Pulse 86 Resp 16 B/P (MAP) 103/53 (70) Pulse Ox 97 O2 Delivery Room Air O2 Flow Rate 2.00 Capillary Refill : Less Than 3 SecondsLess Than 3 Seconds General Appearance: No Apparent Distress, WD/WN Eyes: Bilateral Eye PERRL, Bilateral Eye EOMI HEENT: PERRL/EOMI, Normal ENT Inspection Neck: Full Range of Motion, Normal Inspection, Non Tender, Supple Respiratory: No Accessory Muscle Use, No Respiratory Distress Cardiovascular: Regular Rate, Rhythm, Normal Peripheral Pulses Gastrointestinal: Non Tender, Soft Extremity: Normal Capillary Refill, No Calf Tenderness, Other (RLE: pain Right hip with log roll; skin intact, no open wounds, all compartments soft/NT, motor/ sensation grossly intact, foot well perfused.) Neurologic/Psychiatric: Alert, Oriented x3, No Motor/Sensory Deficits, Normal Mood/Affect, amplifier mechanic II-XII Norm as Tested Skin: Normal Color, Warm/Dry Lymphatic: No Adenopathy Assessment/Plan Assessment and Plan 82 y/o female with acute onset of severe Right hip pain and an inability to bear weight/ambulate on her RLE secondary to a mechanical GLF. Imaging studies demonstrate a displaced subcapital fracture of the Right femoral neck. This is an unstable injury that will need operative stabilization. Recommendation is bipolar hemiarthroplasty Right hip. I explained the details of the treatment plan in detail with the patient including the risks, benefits, potential complications, and expected outcomes. All of her questions have been answered to her satisfaction. She has given informed written consent to proceed as planned. Will plan for OR today. Remain NPO. Current pain control. Bedrest until after surgery. Dr. Ochoa for medical management. Admission Diagnosis Admission Status: Inpatient Order (span 2 midnights) Reason for Inpatient Admission: Right hip fracture Clinical Quality Measures DVT/VTE Risk/Contraindication: Risk Factor Score Per Nursin RFS Level Per Nursing on Admit: 4+=Very High Contraindications-Pharm: Other *list below* LOVE WATT DO November 17, 2017 10:39
[2017-11-17] MEDS ORDERED: fentaNYL INJECTION 100 MCG/2 ML AMP ONE ×2 (12:15→14:45)
[2017-11-17] MEDS ORDERED: proPOfol 200 MG/20 ML (DIPRIVAN) VIAL IV ONE ×2 (12:15→12:23)
[2017-11-17] MEDS ORDERED: ONDANSETRON 4 MG/2 ML (SDV) Z0FRAN ONE (12:15)
[2017-11-17] MEDS ORDERED: SEVOFLURANE (ULTANE) 15 ML INHAL SOLN ONE ×6 (12:15→14:38)
[2017-11-17] MEDS ORDERED: LIDOCAINE PF 2% 5 ML (XYLOCAINE) VIAL ONE (12:15)
[2017-11-17] MEDS ORDERED: ROCURONIUM 10 MG/ML 5 ML SYRINGE IV ONE (12:23)
[2017-11-17] MEDS: LACTATED RINGERS 1,000 ML IV PRN ×2 (12:45→15:30)
[2017-11-17] MEDS ORDERED: ceFAZolin 1,000 MG (ANCEF) VIAL ONE (13:05)
[2017-11-17] MEDS ORDERED: PHENYLEPHRINE 100 MCG/ML 10 ML (ANESTHESIA) SYR ONE (13:26)
[2017-11-17] MEDS ORDERED: NEOSTIGMINE 1 MG/ML 5 ML SYRINGE ONE (14:39)
[2017-11-17] MEDS ORDERED: GLYCOPYRROLATE 0.2 MG/ML (ROBINUL) 2 ML VIAL ONE (14:39)
--- NOTE | 2017-11-17 14:56 | Progress Note-Post Operative ---
Post-Operative Progess Note Surgeon (s)/Cosmetic Assembler (s) Surgeon LOVE WATT DO Cosmetic Assembler: Sal Dumont PA-C Pre-Operative Diagnosis Displaced fracture Right femoral neck Post-Operative Diagnosis Same Procedure & Operative Findings Date of Procedure 11/17/17 Procedure Performed/Findings Uncemented bipolar hemiarthroplasty Right hip. Anesthesia Type GETA Estimated Blood Loss Estimated blood loss (mL): 100 mL Specimens/Packing Specimens Removed None Packing: None Drains: none Disposition: stable, to PACU LOVE WATT DO November 17, 2017 14:56
[2017-11-17] MEDS ORDERED: ONDANSETRON 4 MG/2 ML (SDV) Z0FRAN IVP PRN (15:15)
[2017-11-17] MEDS: morphine INJ 10 MG/ML 1ML (SYR OR VIAL) IVP PRN ×2 (15:25→15:30)
--- NOTE | 2017-11-17 15:40 | Diagnostic Imaging Report ---
EXAMINATION: Portable pelvis at 03:16 p.m. INDICATION: Postop total hip. FINDINGS: A single AP view of the pelvis was received from the OR. In the interval since the prior exam of 11/16/2017, the patient has undergone a total hip arthroplasty procedure on the right. The prosthesis seems to be in good position. There is some gas in the soft tissues about the right hip joint as well. There is no fracture or acute abnormality identified and the overall appearance of the pelvis has not changed significantly since the prior exam. IMPRESSION: There are postoperative changes consistent with an interval total hip arthroplasty procedure on the right. There is no acute abnormality evident. Dictated by: Dictated on workstation # [id number]
[2017-11-17 16:00] VITALS: BP 145/63
[2017-11-17] MEDS: ceFAZolin 2 GM IV Premixed 50 ML IV SCH ×2 (16:51→23:46)
[2017-11-17] MEDS: HYDROcodone/APAP 5 MG/325 MG (LORTAB) TAB PO PRN (16:56)
[2017-11-17 19:35] VITALS: BP 114/56
[2017-11-17] MEDS: LACTATED RINGERS 1,000 ML IV SCH ×2 (19:43→23:46)
[2017-11-18] VITALS: BP 108/56
[2017-11-18] MEDS: HYDROcodone/APAP 5 MG/325 MG (LORTAB) TAB PO PRN ×4 (03:42→21:34)
[2017-11-18] MEDS: inSUlin ASPART (NovoLOG) 1 UNIT/0.01 ML (CHARGE PER UNIT) SC SCH ×5 (03:45→21:27)
[2017-11-18 05:00] VITALS: BP 101/55
[2017-11-18] MEDS: ceFAZolin 2 GM IV Premixed 50 ML IV SCH (06:08)
[2017-11-18] MEDS: LACTATED RINGERS 1,000 ML IV SCH ×2 (06:08→18:17)
[2017-11-18] MEDS: metFORMIN 500 MG (GLUCOPHAGE) TAB PO SCH ×2 (06:08→18:58)
[2017-11-18 06:55] LABS: HEMOGLOBIN 9.6 G/DL (11.5-16.0); MEAN PLATELET VOLUME 11.2 FL (7.4-10.4); RED BLOOD COUNT 3.48 10^6/uL (4.35-5.85); RED CELL DISTRIBUTION WIDTH 16.1 % (10.0-14.5); WHITE BLOOD COUNT 7.5 10^3/uL (4.3-11.0)
[2017-11-18 07:13] LABS: BUN/CREATININE RATIO 14; CALCIUM 8.2 MG/DL (8.5-10.1); CARBON DIOXIDE 23 MMOL/L (21-32); CHLORIDE 105 MMOL/L (98-107); CREATININE SERUM 0.66 MG/DL (0.60-1.30); GFR ESTIMATED > 60; GLUCOSE 186 MG/DL (70-105); MAGNESIUM 1.5 MG/DL (1.8-2.4); SODIUM 138 MMOL/L (135-145)
[2017-11-18] MEDS: ENOXAPARIN 40 MG/0.4 ML (LOVENOX) SYR SC SCH (07:36)
--- NOTE | 2017-11-18 07:36 | Progress Note (SOAP) ---
Subjective Time Seen by Provider: 07:25 Subjective/Events-last exam Patient had hip surgery yesterday. Patient feeling good today except for pain in the hip. UTI due to staph Staphylococcus epididymis. To change patient to Keflex by mouth from Rocephin. Patient alert today. Patient doing well. Diabetes. Patient taking fluids Objective Exam Vital Signs Date Time Temp Pulse Resp B/P (MAP) Pulse Ox O2 Delivery O2 Flow Rate FiO2 11/18/17 05:00 100.0 101 17 101/55 (70) 95 Nasal Cannula 3.00 11/18/17 01:00 102 11/18/17 00:00 98.0 96 16 108/56 (73) 98 Nasal Cannula 2.00 11/17/17 20:35 Nasal Cannula 2.00 11/17/17 19:44 94 11/17/17 19:35 97.5 86 20 114/56 (75) 97 Nasal Cannula 2.00 11/17/17 16:00 96.9 78 16 145/63 (90) 98 Nasal Cannula 2.00 11/17/17 10:17 Nasal Cannula 2.00 11/17/17 08:36 96.7 96 18 132/59 (83) 94 Nasal Cannula 2.00 I & O 11/18/17 07:00 Intake Total 1990 ml Output Total 800 ml Balance 1190 ml Capillary Refill : Less Than 3 SecondsLess Than 3 Seconds General Appearance: No Apparent Distress, WD/WN HEENT: Normal ENT Inspection Neck: Full Range of Motion, Normal Inspection Respiratory: Lungs Clear, Normal Breath Sounds, No Accessory Muscle Use Cardiovascular: Regular Rate, Rhythm, No Murmur Gastrointestinal: non tender, soft Results Lab Laboratory Tests 11/18/17 06:20 Laboratory Tests 11/17/17 12:26: Glucometer 231H 11/17/17 15:10: Glucometer 162H 11/17/17 16:13: Glucometer 188H 11/17/17 20:40: Glucometer 223H 11/17/17 23:42: Glucometer 198H 11/18/17 03:45: Glucometer 170H 11/18/17 06:20: White Blood Count 7.5, Red Blood Count 3.48L, Hemoglobin 9.6L, Hematocrit 31L, Mean Corpuscular Volume 89, Mean Corpuscular Hemoglobin 28, Mean Corpuscular Hemoglobin Concent 31L, Red Cell Distribution Width 16.1H, Platelet Count 92L, Mean Platelet Volume 11.2H, Sodium Level 138, Potassium Level 5.0, Chloride Level 105, Carbon Dioxide Level 23, Anion Gap 10, Blood Urea Nitrogen 9, Creatinine 0.66, Estimat Glomerular Filtration Rate > 60, BUN/Creatinine Ratio 14, Glucose Level 186H, Calcium Level 8.2L, Magnesium Level 1.5L 11/18/17 07:24: Glucometer 219H Microbiology 11/16/17 MRSA Screen - Final, Complete MRSA not isolated 11/16/17 Urine Culture - Preliminary, Resulted Staphylococcus epidermidis Assessment/Plan Assessment/Plan Assess & Plan/Chief Complaint Right hip fracture. Coronary artery disease. UTI. Hypomagnesemia. Hypokalemia. Diabetes. . 11/17/17. Right hip fracture. Coronary artery disease. UTI. Hypomagnesemia. Hypokalemia. Diabetes. Patient ready for surgery. . 11/18/17. Right hip fracture. Coronary artery disease. UTI due to Staphylococcus epididymis. Hypomagnesemia. Hypokalemia. Diabetes. Patient feeling good today Clinical Quality Measures DVT/VTE Risk/Contraindication: Risk Factor Score Per Nursin RFS Level Per Nursing on Admit: 4+=Very High Contraindications-Pharm: Other *list below* TU SANCHEZ DO Nov 18, 2017 07:36
[2017-11-18] MEDS: MAGNESIUM 1 GM/100 ML IVPB 100 ML IV SCH ×3 (07:47→10:45)
[2017-11-18 08:38] VITALS: BP 98/50
[2017-11-18] MEDS: DIVALPROX SPRINKLE 125 MG (DEPAKOTE) CAP PO SCH ×3 (08:45→21:27)
[2017-11-18] MEDS: CEPHALEXIN 250 MG (KEFLEX) CAP PO SCH ×4 (08:45→21:27)
--- NOTE | 2017-11-18 10:11 | Physical Therapy Evaluation ---
PT Evaluation-General Medical Diagnosis Admission Date November 16, 2017 at 09:22 Medical Diagnosis: right hip fracture/syncope Onset Date: November 16, 2017 Therapy Diagnosis Therapy Diagnosis: generalized weakness/debility Height/Weight Height (Feet): 5 Height (Inches): 6.00 Weight (Pounds): 137 Weight (Ounces): 5.0 Precautions Precautions/Isolations: Fall Prevention, Standard Precautions Weight Bear Status Right Lower Extremity: Right Weight Bearing/Tolerated Left Lower Extremity: Left Full Weight Bearing Referral Physician: Ayo Reason for Referral: Evaluation/Treatment Medical History Pertinent Medical History: CAD, DM, Dementia, HTN, [place] Current History EMS secondary to fall at [place] Reviewed History: Yes Social History Home: Assisted Living Prior/Core FIM Prior Level of Function Functional [place] Measure 0=Not Assessed/NA 4=Minimal Assistance 1=Total Assistance 5=Supervision or Setup 2=Maximal Assistance 6=Modified [place] 3=Moderate Assistance 7=Complete [place] Bed Mobility: 5 Transfers (B,C,W/C) (FIM): 5 Gait: 5 uses FWW at [place] PLOF PT Evaluation-Current Subjective Patient reluctantly agrees to PT. Pain Numeric Pain Scale: 10-Worst Possible Pain Location: Right Location Body Site: Hip Pain Description: Acute Objective Patient Orientation: Confused Problem Solving: Poor Attachments: Oxygen, IV ROM/Strength ROM Lower Extremities right LE hip protocol left LE WFL Strength Lower Extremities right LE 2/5 grossly; left LE 3/5 grossly Integumentary/Posture Integumentary refer to nursing notes Bowel Incontinence: No Bladder Incontinence: No Posture WNL Neuromuscular (Tone, Coordination, Reflexes) diminished coordination due to anxiety and fall risk Sensory Vision: Wears Glasses Hearing: Impaired Sensation Right Lower Extremit: Intact Sensation Left Lower Extremity: Intact Transfers Functional [place] Measure 0=Not Assessed/NA 4=Minimal Assistance 1=Total Assistance 5=Supervision or Setup 2=Maximal Assistance 6=Modified [place] 3=Moderate Assistance 7=Complete [place] Transfers (B, C, W/C) (FIM): 2 Scootin Rollin Supine to/from Sit: 2 Sit to/from Stand: 2 max assist with all/patient is very resistant due to fear of falling per her report Gait Mode of Locomotion: Walk Anticipated Mode of Locomotion: Walk Gait (FIM): 1 Distance (FIM): 1=up to 49 ft Distance: 5' Gait Level of Assist: 2 Gait Persons Needed: 1 Gait Assistive Device: FWW Comments/Gait Description with SBA x 1 for safety due to patient is very resistant to WBAT right LE Balance Sitting Static: Fair Sitting Dynamic: Fair Standing Static: Poor Standing Dynamic: Poor Assessment/Needs 82 y.o. female, will benefit from skilled PT to address functional strength and mobility to improve current LOF. From a PT standpoint, patient require extended care facility for full recovery due to patient's dementia and LOF. Rehab Potential: Fair PT Jail Goals Jail Goals PT Certified Neurodiagnostic Technologist Goals Time Frame: Dec 02, 2017 Transfers (B,C,W/C) (FIM): 4 Gait (FIM): 1 Gait distance (FIM): 1=up to 49 ft Distance: 25' Gait Level of Assist: 4 Gait Assistive Device: FWW PT Plan Problem List Problem List: Activity Tolerance, Functional Strength, Safety, Balance, Gait, Transfer, Bed Mobility Treatment/Plan Treatment Plan: Continue Plan of Care Treatment Plan: Bed Mobility, Education, Functional Activity Tegan, Functional Strength, Gait, Safety, Therapeutic Exercise, Transfers Treatment Duration: Dec 02, 2017 Frequency: 11 times per week Estimated Hrs Per Day: .5 hour per day Patient and/or Family Agrees t: Yes Safety Risks/Education Patient Education: Gait Training, Transfer Techniques Teaching Recipient: Patient Teaching Methods: Demonstration, Discussion Response to Teaching: Reinforcement Needed Discharge Recommendations Therapy D/C Recommendations: Group Home Placement, Nursing Home (TCU/NH) Time/GCodes Time In: 805 Time Out: 835 Total Billed Treatment Time: 30 Total Billed Treatment 1 visit EVHigh 30 min NIKKO HO PT Nov 18, 2017 10:11
[2017-11-18 12:57] VITALS: BP 107/52
[2017-11-18] MEDS: D5 NS 1000 ML IV SOLUTION 1,000 ML IV SCH ×2 (13:47→21:28)
--- NOTE | 2017-11-18 13:55 | Progress Note (SOAP) ---
Subjective Date Seen by Provider: Nov 18, 2017 Time Seen by Provider: 13:45 Subjective/Events-last exam Pt JESSICA, doing well, no complaints. Objective Exam Vital Signs Date Time Temp Pulse Resp B/P (MAP) Pulse Ox O2 Delivery O2 Flow Rate FiO2 11/18/17 13:00 Nasal Cannula 1.00 11/18/17 12:57 96.2 93 18 107/52 (70) 90 Room Air 11/18/17 09:00 97 Nasal Cannula 1.00 11/18/17 08:38 98.1 90 18 98/50 (66) 97 Nasal Cannula 1.00 11/18/17 07:01 97 11/18/17 05:00 100.0 101 17 101/55 (70) 95 Nasal Cannula 3.00 11/18/17 01:00 102 11/18/17 00:00 98.0 96 16 108/56 (73) 98 Nasal Cannula 2.00 11/17/17 20:35 Nasal Cannula 2.00 11/17/17 19:44 94 11/17/17 19:35 97.5 86 20 114/56 (75) 97 Nasal Cannula 2.00 11/17/17 16:00 96.9 78 16 145/63 (90) 98 Nasal Cannula 2.00 I & O 11/18/17 07:00 Intake Total 1990 ml Output Total 800 ml Balance 1190 ml Capillary Refill : Less Than 3 SecondsLess Than 3 Seconds General Appearance: No Apparent Distress, WD/WN HEENT: Normal ENT Inspection Respiratory: No Accessory Muscle Use, No Respiratory Distress Cardiovascular: Regular Rate, Rhythm, Normal Peripheral Pulses Gastrointestinal: non tender, soft Extremity: Normal Capillary Refill, No Calf Tenderness, Other (RLE: dressings Right hip c/d/i, all compartments soft/compressible, motor/sensation grossly intact, foot well perfused.) Neurologic/Psychiatric: Alert, Oriented x3, No Motor/Sensory Deficits, Normal Mood/Affect, rd mechanical engineer II-XII Norm as Tested Results Lab Laboratory Tests 11/17/17 15:10: Glucometer 162H 11/17/17 16:13: Glucometer 188H 11/17/17 20:40: Glucometer 223H 11/17/17 23:42: Glucometer 198H 11/18/17 03:45: Glucometer 170H 11/18/17 06:20: White Blood Count 7.5, Red Blood Count 3.48L, Hemoglobin 9.6L, Hematocrit 31L, Mean Corpuscular Volume 89, Mean Corpuscular Hemoglobin 28, Mean Corpuscular Hemoglobin Concent 31L, Red Cell Distribution Width 16.1H, Platelet Count 92L, Mean Platelet Volume 11.2H, Sodium Level 138, Potassium Level 5.0, Chloride Level 105, Carbon Dioxide Level 23, Anion Gap 10, Blood Urea Nitrogen 9, Creatinine 0.66, Estimat Glomerular Filtration Rate > 60, BUN/Creatinine Ratio 14, Glucose Level 186H, Calcium Level 8.2L, Magnesium Level 1.5L 11/18/17 07:24: Glucometer 219H 11/18/17 11:25: Glucometer 219H Microbiology 11/16/17 MRSA Screen - Final, Complete MRSA not isolated 11/16/17 Urine Culture - Final, Complete Staphylococcus epidermidis Assessment/Plan Assessment/Plan Assess & Plan/Chief Complaint S/P Bipolar hemiarthroplasty Right hip, POD #1 Orthopedically stable Mobilize OOB with PT/OT, WBAT RLE, anterior hip precautions Lovenox/SCDs for VTE prophylaxis Current pain control regimen Bowel regimen D/C planning: OK to d/c back to NH/SNF from ortho standpoint when bed available. Clinical Quality Measures Admission Status Admission Dx 82 y/o female with acute onset of severe Right hip pain and an inability to bear weight/ambulate on her RLE secondary to a mechanical GLF. Imaging studies demonstrate a displaced subcapital fracture of the Right femoral neck. This is an unstable injury that will need operative stabilization. Recommendation is bipolar hemiarthroplasty Right hip. I explained the details of the treatment plan in detail with the patient including the risks, benefits, potential complications, and expected outcomes. All of her questions have been answered to her satisfaction. She has given informed written consent to proceed as planned. Will plan for OR today. Remain NPO. Current pain control. Bedrest until after surgery. Dr. Ochoa for medical management. DVT/VTE Risk/Contraindication: Risk Factor Score Per Nursin RFS Level Per Nursing on Admit: 4+=Very High Contraindications-Pharm: Other *list below* LOVE WATT DO Nov 18, 2017 13:55
--- NOTE | 2017-11-18 14:36 | Anesthesia-General Post-Op ---
General Patient Condition Mental Status/LOC: Same as Preop Cardiovascular: Satisfactory Nausea/Vomiting: Absent Respiratory: Satisfactory Pain: Controlled Complications: Absent Post Op Complications Complications None Follow Up Care/Instructions Patient Instructions None needed. Anesthesia/Patient Condition Patient Condition Patient was seen this morning and she was doing well, no complaints, stable vital signs, no apparent adverse anesthesia problems. EMMY SALINAS DO Nov 18, 2017 14:36
--- NOTE | 2017-11-18 14:47 | Physical Therapy Daily Note ---
PT Daily Note-Current Subjective Patient is very reluctant to participate with PT. She states, "I have had enough." Dr. Rollins did convince patient to participate. Pain Numeric Pain Scale: 10-Worst Possible Pain Location: Right Location Body Site: Hip Pain Description: Acute Mental Status Patient Orientation: Confused Attachments: IV Transfers Functional [place] Measure 0=Not Assessed/NA 4=Minimal Assistance 1=Total Assistance 5=Supervision or Setup 2=Maximal Assistance 6=Modified [place] 3=Moderate Assistance 7=Complete IndependenceIRFPAI Quality Coding Scale 6 Independent with activity with or without an assistive device 5 Patient requires set up or clean up by helper. Patient completes activity by themselves 4 Supervision or touching assist (CGA). [place] provide cues , steadying assist 3 The helper provides less than half the effort to complete the activity 2 The helper provides more than half the effort to complete the activity 1 Dependent. The helper does all the effort to complete an activity 7 Patient refused to complete or attempt activity 9 The patient did not perform the activity before the current illness or injury 88 Not attempted due to Medical conditions or safety concerns Transfers (B, C, W/C) (FIM): 1 Scootin Rollin Supine to/from Sit: 1 Sit to/from Stand: 3 Bed to/from Chair: 3 Once in standing position, patient is able to ambulate short distances mod assist Weight Bearing Right Lower Extremity: Right Weight Bearing/Tolerated Left Lower Extremity: Left Full Weight Bearing Gait Training Gait (FIM): 1 Distance (FIM): 1=up to 49 ft Distance: 6' x 2 Gait Level of Assist: 3 Gait Persons Needed: 1 Gait Assistive Device: FWW antalgic with demonstrating ability to weight shift and WBAT right LE to ambulate. Patient does self limit due to pain. Exercises Supine Ex: Ankle pumps, Quad Set, Heel Slides, Straight leg raise Supine Reps: 15 (AAROM bilaterally) Seated Therapy Exercises: Long arc quads Seated Reps: 15 (bilaterally AAROM) Assessment Patient tolerated treatment well becomes agitated with request for therapy to improve mobility. Dr. Rollins in for assessment and did reinforce importance of PT. PT to increase activity as tolerated by patient. PT Litigation Claim Representative Goals Longterm Goals PT Litigation Claim Representative Goals Time Frame: Dec 02, 2017 Transfers (B,C,W/C) (FIM): 4 Gait (FIM): 1 Gait distance (FIM): 1=up to 49 ft Distance: 25' Gait Level of Assist: 4 Gait Assistive Device: FWW PT Plan Treatment/Plan Treatment Plan: Continue Plan of Care Treatment Plan: Bed Mobility, Education, Functional Activity Tegan, Functional Strength, Gait, Safety, Therapeutic Exercise, Transfers Treatment Duration: Dec 02, 2017 Frequency: 11 times per week Estimated Hrs Per Day: .5 hour per day Patient and/or Family Agrees t: Yes Discharge Recommendations Therapy D/C Recommendations: Senior Care Placement, [facility] (TCU/NH) Time/GCodes Time In: 1332 Time Out: 1400 Total Billed Treatment Time: 28 Total Billed Treatment 1 visit FA 15 min EX 13 min NIKKO HO PT Nov 18, 2017 14:47
--- NOTE | 2017-11-18 15:57 | Occupational Therapy Eval ---
OT Evaluation-General/PLF Medical Diagnosis Admission Date November 16, 2017 at 09:22 Medical Diagnosis: right hip fracture/syncope Onset Date: November 16, 2017 Therapy Diagnosis Therapy Diagnosis: decr self care, weakness, decr funct mobility, decr cognition Height/Weight Height (Feet): 5 Height (Inches): 6.00 Weight (Pounds): 137 Weight (Ounces): 5.0 Precautions Precautions/Isolations: Fall Prevention, Standard Precautions Safety Interventions: None Comments Hip precautions Weight Bear Status Weight Bearing Restriction: Weight Bearing/Tolerated Location Restriction: R LE Referral Physician: Ayo Referral Reason: Evaluation/Treatment Medical History Pertinent Medical History: Arthritis, CAD, DM, Dementia, GERD, HTN, [place] Additional Medical History Cardiac stents. Chronic edema. Recurrent UTI. Hard of hearing Current History Fell at [facility], with R hip fx. Bipolar hemiarthroplasty done 11-17-17, with hip precautions. Also has UTI Reviewed History: Yes Social History Home: Assisted Living ([facility]) ADL-Prior Level of Function ADL PLOF Comments Pt was unable to accurately describer her prior level of function but PT eval indicates she needed SBA for ambulation with FWW. She most likely had at least supervision for bathing DME/Equipment Comments bathroom is most likely accessible OT Current Status Subjective Pt seen in room, up in bed, agreeable to OT. reported pain 0/10 Appearance Alert, cooperative, fatigued from just toileting Mental Status/Objective Patient Orientation: Person, Situation Close on date. Thought she was at [facility] Attachments: IV, Telemetry Current Glasses/Contacts: Yes Hearing Aids: No Dentures/Partials: Yes Hand Dominance: Right Upper Extremity ROM Grossly WFL bilat Upper Extremity Strength Grossly 4/5 bilat ADL-Treatment ADL-Current Pt said that she has been able to feed herself here. She needed mod assist to walk to BS, FWW. Fatigued from just toileting. Pt education on hip precautions , with info written on white board. Functional [place] Measure 0=Not Assessed/NA 4=Minimal Assistance 1=Total Assistance 5=Supervision or Setup 2=Maximal Assistance 6=Modified [place] 3=Moderate Assistance 7=Complete IndependenceIRFPAI Quality Coding Scale 6 Independent with activity with or without an assistive device 5 Patient requires set up or clean up by helper. Patient completes activity by themselves 4 Supervision or touching assist (CGA). [place] provide cues , steadying assist 3 The helper provides less than half the effort to complete the activity 2 The helper provides more than half the effort to complete the activity 1 Dependent. The helper does all the effort to complete an activity 7 Patient refused to complete or attempt activity 9 The patient did not perform the activity before the current illness or injury 88 Not attempted due to Medical conditions or safety concerns Education OT Patient Education: Purpose of tx/functional activities, Rehab process Teaching Recipient: Patient Teaching Methods: Discussion Response to Teaching: Verbalize Understanding OT [employer] Goals Intermediate Goals Time Frame: Dec 02, 2017 Eating (FIM): 6 Grooming(FIM): 5 Bathing(FIM): 3 Upper Body Dressing(FIM): 5 Lower Body Dressing(FIM): 4 Toileting(FIM): 3 Toilet/Commode Transfer(FIM): 4 Shower Transfer(FIM): 4 Additional Goals: 1-Demonstrate ADL Tasks, 2-Verbalize Understanding, 3- ImproveStrength/Tegan 1=Demonstrate adherence to instructed precautions during ADL tasks. 2=Patient will verbalize/demonstrate understanding of assistive devices/ modifications for ADL. 3=Patient will improve strength/tolerance for activity to enable patient to perform ADL's. OT Education/Plan Problem List/Assessment Assessment: Decreased Safety Aware, Decreased UE Strength, Dependent Transfers , Impaired Bed Mobility, Impaired Self-Care Skills Pt would benefit from skilled OT to increase her independence in basic self care Discharge Recommendations Plan/Recommendations: Continue POC Therapy D/C Recommendations: [facility] (TCU/NH) Treatment Plan/Plan of Care Treatment,Training & Education: Yes Patient would benefit from OT for education, treatment and training to promote independence in ADL's, mobility, safety and/or upper extremity function for ADL' s. Plan of Care: ADL Retraining, Functional Mobility, UE Funct Exercise/Act, UE Neuromus Re-Ed/Coord Treatment Duration: Dec 02, 2017 Frequency: 5 times per week Estimated Hrs Per Day: .5 hour per day Agreement: Yes Rehab Potential: Fair Time/GCodes Start Time: 14:45 Stop Time: 15:00 Total Time Billed (hr/min): 15 Billed Treatment Time visit, 15 minutes evaluation moderate intensity RAVI HAMMER OT Nov 18, 2017 15:57
[2017-11-18 16:59] VITALS: BP 102/64
--- NOTE | 2017-11-18 17:51 | OPERATIVE REPORT ---
DATE OF SERVICE: 11/17/2017 PREOPERATIVE DIAGNOSIS: Displaced subcapital fracture of right femoral neck. POSTOPERATIVE DIAGNOSIS: Displaced subcapital fracture of right femoral neck. PROCEDURE: Uncemented bipolar hemiarthroplasty, right hip. ATTENDING SURGEON: Dr. Love Watt. BILINGUAL LEGAL ASSISTANT: Sal Dumont PA-C; MrAdrianna Dumont's assistance was required secondary to the complexity of the case, to hold necessary retractors protecting vital neurovascular structures and to increase the efficiency and efficacy of the case; this case would not have been possible without an promotional advertising assistant. IMPLANTS USED: 1. The DePuy Synthes Tri-Lock uncemented femoral stem size #2 with standard offset. 2. The DePuy Synthes self-centering bipolar head 45 mm outer diameter, 28 mm inner diameter. 3. The De[employer]uy Synthes Articuleze femoral head 28 mm in diameter with +5 offset. ANESTHESIA: General endotracheal. ESTIMATED BLOOD LOSS: 100 mL. COMPLICATIONS: None. SPECIMENS: None. DRAINS: None. BRIEF HISTORY AND INDICATIONS: The patient is a pleasant 82-year-old female, a detention resident that sustained a mechanical ground level fall landing on to her right hip on 11/16/2017. She subsequently had severe right hip pain and an inability to bear weight or ambulate on her right leg. As such, she presented to the [facility] Emergency Department for evaluation. Upon presentation, plain radiographs of the patient's pelvis and right femur demonstrated a displaced subcapital fracture of the right femoral neck. The orthopedic service was consulted for definitive management of her injury. The patient denied head trauma, neck pain or loss of consciousness. She denied any additional musculoskeletal injuries. Preoperatively, the right lower extremity was otherwise stable, motor and sensory function was grossly intact, the skin was intact. There were no open wounds and the right lower extremity was well perfused. I discussed the nature of the patient's injury in detail with her preoperatively including the natural history, prognosis and indications for surgery. A surgical plan was for bipolar hemiarthroplasty of the right hip. I discussed the plan in detail with the patient preoperatively including the risks, benefits, potential complications and expected outcomes. Those risks that were discussed included significant bleeding, infection, dislocation, periprosthetic fracture, irritation of the prosthesis, and potential need for secondary surgical procedures. The patient gave informed written consent to proceed as planned after all of her questions were answered to her satisfaction. PROCEDURE NOTE: After correctly identifying the patient in the preoperative holding area as the patient and after her right hip was appropriately marked, she was transferred to the operating room. Once in the operating room, she had successful induction of general endotracheal anesthesia, then she was transferred to an OR table and placed in the lateral recumbent position with right hip up, left hip down. A soft axillary roll was placed on the left side of chest wall. All bony prominences were meticulously padded. The right leg was then prepped and draped in the routine sterile fashion. Prior to beginning the case, we completed an operating room timeout with all parties involved in the case in agreement and verified appropriate infusion of prophylactic antibiotics. Using a 10 blade scalpel, I made an incision directly over the lateral aspect of the right hip centered on the greater trochanter of approximately 6 cm in length incising through the skin and subcutaneous tissue. Bovie cautery was then used to dissect through the fascia of the IT band and the gluteus bennett to gain access to the gluteus medius muscle. The gluteus medius muscle was then split in line of its fibers and the anterior one-third with blunt dissection and then carried distally to release the anterior one-third of the insertion off of the greater trochanter, this included the anterolateral capsule. The anterolateral capsule was released distally to the level of the lesser trochanter, approximately it was released to the level proximal of the acetabulum, which also included the fascia of the gluteus minimus. At this point, external rotation delivered the subcapital femoral neck fracture into the wound. We then completed a standard femoral neck osteotomy approximately one fingerbreadth proximal to the lesser trochanter with a standard oscillating bone saw. At this point, the femoral head was then removed from the acetabulum and then measured to be approximately 45 mm in diameter and therefore we decided to choose the 45 mm diameter bipolar head for the final implant. Inspection of the acetabular cartilage revealed it to be in good shape, there was no significant articular cartilage damage. We then irrigated the wound with copious amounts of sterile saline with pulse lavage and then proceeded to prepare the femur for the femoral implant. This was first accomplished by using the box osteotome to lateralize the proximal femur and then we began using the broach system to broach the femur until we were getting a good fit and fill with a #2 broach. As such, we decided to go with a #2 femoral stem for the final implant. The final uncemented femoral stem was then inserted into the femoral canal to the appropriate depth with light taps of the mallet. The femoral stem was grossly stable prior to proceeding with placement of the bipolar head implant. We then trialled for the appropriate neck length, which ended up being the +5, which gave us very good leg lengths and excellent stability. The final bipolar head implant was placed under the trunnion of the femoral stem, the hip was then reduced without complications. After reduction, once again we confirmed the appropriate leg lengths had been reestablished and the hip prosthesis was very stable through the entirety of range of motion. The wound was then irrigated with copious amounts of sterile saline and then standard closure began. This was completed first by repairing the gluteus medius and anterolateral capsule through bone tunnels in the proximal femur and greater trochanter. The gluteus minimus and gluteus medius fascia was then repaired with #5 Ethibond. The gluteus bennett fascia and IT band was then repaired with 0 Vicryl, subcutaneous tissue with 2-0 Vicryl, and the skin was repaired with a running 4-0 Monocryl subcuticular stitch and Steri-Strips. The patient had a sterile dressing applied followed by being awakened and extubated in the operating room. She was then transferred to the PACU in stable condition. She tolerated the procedure well without complications. All counts were correct at the end of the case. Job ID: [id number] DocumentID: [id number] Dictated Date: 11/18/2017 11:05:08 Turn Out Worker Date: 11/18/2017 17:50:31 Dictated By: LOVE WATT GOOD SAMARITAN HOSPITALRadhames
[2017-11-18 19:17] VITALS: BP 106/62
[2017-11-18] MEDS ORDERED: ACETAMINOPHEN 650 MG SUPP (TYLENOL) PR PRN (23:30)
[2017-11-19 00:08] VITALS: BP 83/46
[2017-11-19 04:16] VITALS: BP 95/48
[2017-11-19 04:37] LABS: BILIRUBIN,URINE NEGATIVE (NEGATIVE); CLARITY,URINE CLEAR; COLOR,URINE YELLOW; GLUCOSE, URINE (UA) NEGATIVE (NEGATIVE); KETONES,URINE 1+ (NEGATIVE); LEUKOCYTE ESTERASE ,URINE 3+ (NEGATIVE); NITRITE,URINE NEGATIVE (NEGATIVE); PH,URINE 5 (5-9); PROTEIN,URINE 1+ (NEGATIVE); UROBILINOGEN,URINE NORMAL (NORMAL)
[2017-11-19 04:45] LABS: BACTERIA,URINE FEW /HPF
[2017-11-19 04:54] LABS: HEMOGLOBIN 8.6 G/DL (11.5-16.0); MEAN PLATELET VOLUME 11.3 FL (7.4-10.4); RED BLOOD COUNT 3.06 10^6/uL (4.35-5.85); RED CELL DISTRIBUTION WIDTH 15.9 % (10.0-14.5); WHITE BLOOD COUNT 6.9 10^3/uL (4.3-11.0)
[2017-11-19 05:20] LABS: CALCIUM 8.1 MG/DL (8.5-10.1); CREATININE SERUM 0.9 MG/DL (0.60-1.30); MAGNESIUM 2.1 MG/DL (1.8-2.4); POTASSIUM 5.2 MMOL/L (3.6-5.0)
[2017-11-19] MEDS: inSUlin ASPART (NovoLOG) 1 UNIT/0.01 ML (CHARGE PER UNIT) SC SCH ×4 (05:27→21:23)
[2017-11-19] MEDS: metFORMIN 500 MG (GLUCOPHAGE) TAB PO SCH ×2 (06:52→17:08)
[2017-11-19 08:00] VITALS: BP 112/51
[2017-11-19] MEDS: ENOXAPARIN 40 MG/0.4 ML (LOVENOX) SYR SC SCH (09:34)
[2017-11-19] MEDS: DIVALPROX SPRINKLE 125 MG (DEPAKOTE) CAP PO SCH ×3 (09:34→20:17)
[2017-11-19] MEDS: CEPHALEXIN 250 MG (KEFLEX) CAP PO SCH (09:34)
[2017-11-19] MEDS: HYDROcodone/APAP 5 MG/325 MG (LORTAB) TAB PO PRN ×2 (09:34→20:18)
--- NOTE | 2017-11-19 09:36 | Physical Therapy Daily Note ---
PT Daily Note-Current Subjective Patient reluctantly agrees to PT. She yells with any movement. Pain Numeric Pain Scale: 10-Worst Possible Pain Location: Right Location Body Site: Hip Pain Description: Acute Mental Status Patient Orientation: Confused Attachments: IV Transfers Functional [place] Measure 0=Not Assessed/NA 4=Minimal Assistance 1=Total Assistance 5=Supervision or Setup 2=Maximal Assistance 6=Modified [place] 3=Moderate Assistance 7=Complete IndependenceIRFPAI Quality Coding Scale 6 Independent with activity with or without an assistive device 5 Patient requires set up or clean up by helper. Patient completes activity by themselves 4 Supervision or touching assist (CGA). [place] provide cues , steadying assist 3 The helper provides less than half the effort to complete the activity 2 The helper provides more than half the effort to complete the activity 1 Dependent. The helper does all the effort to complete an activity 7 Patient refused to complete or attempt activity 9 The patient did not perform the activity before the current illness or injury 88 Not attempted due to Medical conditions or safety concerns Transfers (B, C, W/C) (FIM): 2 Scootin Rollin Supine to/from Sit: 2 Sit to/from Stand: 2 Bed to/from Chair: 2 Patient is very resistive with all movement and yells during treatment. Weight Bearing Right Lower Extremity: Right Weight Bearing/Tolerated Left Lower Extremity: Left Full Weight Bearing Gait Training Gait (FIM): 1 Distance (FIM): 1=up to 49 ft Distance: 10' Gait Level of Assist: 2 Gait Persons Needed: 1 Gait Assistive Device: FWW with SBA of 1 for safety. Patient resists with gait training. PT reinforced patient's weight bearing and to calmly proceed, however, patient "threw" herself to left requiring dependent assist to return to chair. Exercises Supine Ex: Ankle pumps, Quad Set, Heel Slides, Straight leg raise, Hip abd/add Supine Reps: 15 (AAROM bilaterally) Assessment Patient requires time to complete all functional tasks and is very resistive with all mobility. Patient appears to have increase in confusion on this date. PT Intermediate Goals Intermediate Goals PT Intermediate Goals Time Frame: Dec 02, 2017 Transfers (B,C,W/C) (FIM): 4 Gait (FIM): 1 Gait distance (FIM): 1=up to 49 ft Distance: 25' Gait Level of Assist: 4 Gait Assistive Device: FWW PT Plan Treatment/Plan Treatment Plan: Continue Plan of Care Treatment Plan: Bed Mobility, Education, Functional Activity Tegan, Functional Strength, Gait, Safety, Therapeutic Exercise, Transfers Treatment Duration: Dec 02, 2017 Frequency: 11 times per week Estimated Hrs Per Day: .5 hour per day Patient and/or Family Agrees t: Yes Discharge Recommendations Therapy D/C Recommendations: Assisted Placement, [facility] (TCU/NH) Time/GCodes Time In: 845 Time Out: 908 Total Billed Treatment Time: 23 Total Billed Treatment 1 visit EX 8 min GT 15 min NIKKO HO PT Nov 19, 2017 09:36
[2017-11-19] MEDS ORDERED: NITROFURANTOIN 100 MG (MACROBID) CAPSULE PO NR (10:30)
[2017-11-19] MEDS ORDERED: NITROFURANTOIN 100 MG (MACROBID) CAPSULE PO ONE (10:36)
--- NOTE | 2017-11-19 10:41 | Progress Note-Hospitalist ---
Subjective HPI/CC On Admission Date Seen by Provider: Nov 19, 2017 Time Seen by Provider: 10:00 Patient was sleeping in chair having finished breakfast earlier. She reports right hip pain with movement voices no other complaints. She reports cough with some sputum production couldn't tell me if it was colored but states it's pretty much her baseline. She denied shortness of breath or chest pain. Physical therapy reports that she is more combative and resistant to therapy this morning. Objective Exam Vital Signs Vital Signs Date Time Temp Pulse Resp B/P (MAP) Pulse Ox O2 Delivery O2 Flow Rate FiO2 11/19/17 08:00 96.5 96 18 112/51 (71) 93 Nasal Cannula 1.00 Capillary Refill : Less Than 3 SecondsLess Than 3 Seconds General Appearance: No Apparent Distress, Chronically ill Neck: Other (No carotid bruits noted no adenopathy.) Respiratory: Chest Non Tender, No Accessory Muscle Use, No Respiratory Distress , Other (By basilar rales and rhonchi noted no wheezing appreciated.) Cardiovascular: Regular Rate, Rhythm, No Edema, No Gallop, No JVD, No Murmur, Normal Peripheral Pulses Gastrointestinal: Normal Bowel Sounds, No Organomegaly, No Pulsatile Mass, Non Tender, Soft Extremity: Other Neurologic/Psychiatric: Disoriented (The time does know her name and that she is in the hospital but couldn't tell me the name of the hospital.), Other Results/Procedures Lab Laboratory Tests 11/19/17 04:19 Patient resulted labs reviewed. Assessment/Plan Assessment and Plan Assess & Plan/Chief Complaint 1. Right femoral neck fracture status post right total hip replacement didn't do as well with physical therapy. Will require mcc placement on discharge. 2. Possible syncope precipitating fall. Blood pressure is up today but has been low at rest for the past several days. With this there is been progressive decline in sodium and's morning mild hyperkalemia raising the possibility of [place]'s. We'll obtain an a.m. cortisol level and ACTH level. Depending on results consideration for 24-hour urine cortisol and/or ACTH stimulation test while hospitalized. Blood pressure is up currently continue IV fluids. She does not meet criteria for the need for cortisone replacement at this time. 3. Probable mild dementia. 4. Coronary artery disease appears to be clinically stable. 5. Past smoking history advanced age suspect COPD abnormal chest exam to auscultation no evidence to suggest pneumonia at this time with negative chest x -ray on admission continue to monitor. 6. Staph epidermidis urinary tract infection resistant to cephalexin but sensitive to Macrodantin will switch antibiotic coverage. Clinical Quality Measures DVT/VTE Risk/Contraindication: Risk Factor Score Per Nursin RFS Level Per Nursing on Admit: 4+=Very High Contraindications-Pharm: Other *list below* ULYSSES IQBAL MD Nov 19, 2017 10:41
[2017-11-19 12:00] VITALS: BP 116/55
[2017-11-19] MEDS: LACTATED RINGERS 1,000 ML IV SCH (14:03)
[2017-11-19 16:00] VITALS: BP 95/55
[2017-11-19 20:00] VITALS: BP 97/46
[2017-11-19] MEDS: NITROFURANTOIN 100 MG (MACROBID) CAPSULE PO SCH (20:17)
[2017-11-19] MEDS ORDERED: inSUlin DETERMIR 1 UNIT/0.01 ML (LEVEMIR) CHARGE PER UNIT SQ SCH (21:00)
[2017-11-20 00:27] VITALS: BP 94/60
[2017-11-20 04:00] VITALS: BP 106/54
[2017-11-20 07:03] LABS: BASOPHILS % (AUTO) 0 % (0-10); EOSINOPHILS # (AUTO) 0.2 10^3/uL (0.0-0.3); EOSINOPHILS % (AUTO) 3 % (0-10); HEMATOCRIT 27 % (35-52); HEMOGLOBIN 8.4 G/DL (11.5-16.0); LYMPHOCYTES # (AUTO) 1.9 X 10^3 (1.0-4.0); LYMPHOCYTES % (AUTO) 34 % (12-44); MEAN CORPUSCULAR HEMOGLOBIN 28 PG (25-34); MEAN CORPUSCULAR HGB CONC 32 G/DL (32-36); MEAN CORPUSCULAR VOLUME 89 FL (80-99); MEAN PLATELET VOLUME 11.1 FL (7.4-10.4); MONOCYTES # (AUTO) 0.8 X 10^3 (0.0-1.0); MONOCYTES % (AUTO) 13 % (0-12); NEUTROPHILS # (AUTO) 2.9 X 10^3 (1.8-7.8); NEUTROPHILS % (AUTO) 50 % (42-75); PLATELET COUNT 102 10^3/uL (130-400); RED BLOOD COUNT 3.01 10^6/uL (4.35-5.85); RED CELL DISTRIBUTION WIDTH 16.1 % (10.0-14.5); WHITE BLOOD COUNT 5.7 10^3/uL (4.3-11.0)
[2017-11-20] MEDS: inSUlin ASPART (NovoLOG) 1 UNIT/0.01 ML (CHARGE PER UNIT) SC SCH ×4 (07:11→22:46)
[2017-11-20] MEDS: metFORMIN 500 MG (GLUCOPHAGE) TAB PO SCH ×2 (07:12→16:58)
[2017-11-20 07:24] LABS: BUN/CREATININE RATIO 33; CALCIUM 8.3 MG/DL (8.5-10.1); CARBON DIOXIDE 23 MMOL/L (21-32); CHLORIDE 102 MMOL/L (98-107); CREATININE SERUM 0.83 MG/DL (0.60-1.30); GFR ESTIMATED > 60; POTASSIUM 4.9 MMOL/L (3.6-5.0); SODIUM 136 MMOL/L (135-145)
[2017-11-20 07:30] LABS: GLUCOSE 37 MG/DL (70-105)
[2017-11-20 08:00] VITALS: BP 97/61
[2017-11-20] MEDS: DIVALPROX SPRINKLE 125 MG (DEPAKOTE) CAP PO SCH ×3 (08:43→20:15)
[2017-11-20] MEDS: NITROFURANTOIN 100 MG (MACROBID) CAPSULE PO SCH ×2 (08:43→20:15)
[2017-11-20] MEDS: HYDROcodone/APAP 5 MG/325 MG (LORTAB) TAB PO PRN ×2 (08:43→20:16)
[2017-11-20] MEDS: LACTATED RINGERS 1,000 ML IV SCH (08:44)
[2017-11-20] MEDS: ENOXAPARIN 40 MG/0.4 ML (LOVENOX) SYR SC SCH (08:44)
--- NOTE | 2017-11-20 09:17 | Physical Therapy Daily Note ---
PT Daily Note-Current Subjective Patient states, "Just leave me alone." Patient requires much encouragement to participate with PT. Pain Numeric Pain Scale: 10-Worst Possible Pain Location: Right Location Body Site: Hip Pain Description: Acute Mental Status Patient Orientation: Confused Attachments: Suprapubic Catheter Transfers Functional [place] Measure 0=Not Assessed/NA 4=Minimal Assistance 1=Total Assistance 5=Supervision or Setup 2=Maximal Assistance 6=Modified [place] 3=Moderate Assistance 7=Complete IndependenceIRFPAI Quality Coding Scale 6 Independent with activity with or without an assistive device 5 Patient requires set up or clean up by helper. Patient completes activity by themselves 4 Supervision or touching assist (CGA). [place] provide cues , steadying assist 3 The helper provides less than half the effort to complete the activity 2 The helper provides more than half the effort to complete the activity 1 Dependent. The helper does all the effort to complete an activity 7 Patient refused to complete or attempt activity 9 The patient did not perform the activity before the current illness or injury 88 Not attempted due to Medical conditions or safety concerns Transfers (B, C, W/C) (FIM): 1 Scootin Rollin Supine to/from Sit: 1 Sit to/from Stand: 1 Bed to/from Chair: 2 Patient is very resistive with all mobility and yells during entire treatment. Pain medication has been issues per RN. Weight Bearing Right Lower Extremity: Right Weight Bearing/Tolerated Left Lower Extremity: Left Full Weight Bearing Gait Training Gait (FIM): 1 Distance (FIM): 1=up to 49 ft Distance: 5 steps Gait Level of Assist: 2 Gait Persons Needed: 1 Gait Assistive Device: FWW with SBA x 1/patient has difficulty with weight bearing right LE due to pain and confusion. Patient resists all assist with mobility. Exercises Supine Ex: Ankle pumps, Quad Set, Heel Slides Supine Reps: 15 (AAROM bilaterally) Seated Therapy Exercises: Long arc quads Seated Reps: 15 (AAROM bilaterally) Assessment Patient is up in hip chair with needs met. From a PT standpoint, patient will require extended care facility due to dementia and inability to follow direction for safety. PT Director Regulatory Compliance Goals Director Regulatory Compliance Goals PT Skilled Nursing Goals Time Frame: Dec 02, 2017 Transfers (B,C,W/C) (FIM): 4 Gait (FIM): 1 Gait distance (FIM): 1=up to 49 ft Distance: 25' Gait Level of Assist: 4 Gait Assistive Device: FWW PT Plan Treatment/Plan Treatment Plan: Continue Plan of Care Treatment Plan: Bed Mobility, Education, Functional Activity Tegan, Functional Strength, Gait, Safety, Therapeutic Exercise, Transfers Treatment Duration: Dec 02, 2017 Frequency: 11 times per week Estimated Hrs Per Day: .5 hour per day Patient and/or Family Agrees t: Yes Time/GCodes Time In: 830 Time Out: 840 Total Billed Treatment Time: 10 Total Billed Treatment 1 visit FA 10 min NIKKO HO PT Nov 20, 2017 09:17
--- NOTE | 2017-11-20 10:39 | Progress Note-Hospitalist ---
Subjective HPI/CC On Admission Date Seen by Provider: Nov 20, 2017 Time Seen by Provider: 10:34 Patient was sleeping in chair having finished breakfast earlier. She reports right hip pain with movement voices no other complaints. She reports cough with some sputum production couldn't tell me if it was colored but states it's pretty much her baseline. She denied shortness of breath or chest pain. Physical therapy reports that she is more combative and resistant to therapy this morning. Subjective/Events-last exam Patient's intake was not as good yesterday. On 10 units of Levemir last night she developed hypoglycemia down to the mid 30s. With oral glucose her level slowly,. And there was no reported loss in consciousness. She is sitting upright voicing no complaints other than right hip pain when she moves her leg. At rest she is comfortable. She was able to eat a regular breakfast and voices no other complaints. Objective Exam Vital Signs Vital Signs Date Time Temp Pulse Resp B/P (MAP) Pulse Ox O2 Delivery O2 Flow Rate FiO2 11/20/17 08:19 Nasal Cannula 1.00 11/20/17 08:00 97.6 96 22 97/61 (73) 92 Capillary Refill : Less Than 3 SecondsLess Than 3 Seconds General Appearance: No Apparent Distress, Chronically ill Respiratory: Chest Non Tender, No Accessory Muscle Use, No Respiratory Distress , Other (Diminished breath sounds in left base elsewhere lungs are clear without wheezes rales or rhonchi.) Cardiovascular: Regular Rate, Rhythm, No Gallop, No JVD, No Murmur, Normal Peripheral Pulses, Other (Trace bilateral lower extremity edema without evidence for erythema no purpura noted.) Results/Procedures Lab Laboratory Tests 11/20/17 06:52 Patient resulted labs reviewed. Assessment/Plan Assessment and Plan Assess & Plan/Chief Complaint 1. Right femoral neck fracture status post right total hip replacement didn't do as well with physical therapy. Will require care home placement on discharge. 2. Possible syncope precipitating fall. Blood pressure is up today but has been low at rest for the past several days. With this there is been progressive decline in sodium and's morning mild hyperkalemia raising the possibility of [place]'s. We'll obtain an a.m. cortisol level and ACTH level. Depending on results consideration for 24-hour urine cortisol and/or ACTH stimulation test while hospitalized. Blood pressure is up currently continue IV fluids. She does not meet criteria for the need for cortisone replacement at this time. A.m. cortisol level pending at the time of this dictation. 3. Probable mild dementia. 4. Coronary artery disease appears to be clinically stable. 5. Past smoking history advanced age suspect COPD 6. Staph epidermidis urinary tract infection resistant to cephalexin but sensitive to Macrodantin will switch antibiotic coverage. 7. With reinitiation of Levemir patient experienced at bedtime hypoglycemia will DC. Clinical Quality Measures DVT/VTE Risk/Contraindication: Risk Factor Score Per Nursin RFS Level Per Nursing on Admit: 4+=Very High Contraindications-Pharm: Other *list below* ULYSSES IQBAL MD Nov 20, 2017 10:39
--- NOTE | 2017-11-20 10:41 | Discharge Inst-Surgical ---
Discharge Inst-Surgical Depart Medication/Instructions New, Converted or Re-Newed RX: RX on Chart Patient Instructions Please take 325mg of enteric coated aspirin twice daily for 3 weeks to help prevent blood clots. Consults/Follow Up Goal/Follow Up Appt.: Please follow up with Dr. Watt at [address], [facility] in 2 weeks; please call the office to confirm your appointment. Activity Activity as Tolerated: Yes You may bear weight as tolerated on your Right leg; please continue your anterior hip precautions as instructed. Walking Assistive Device: Walker Activity Instructions: Avoid Pulling & Pushing, Avoid Stress to Incision Driving Instructions: No Driving/Refer to Incentive Spirometry: Every 2 Hours While Awake Diet Discharge Diet: No Restrictions Skin/Wound Care Infection Signs and Symptoms: Increased Redness, Foul Odor of Wound, Increased Drainage, Increased Swelling, Temperature Above 101 F Wound Care Comment: Keep your incision clean and dry; do not soak your incision; you may remove your dressings in 2 days and shower; no baths or soaking tubs. Bathing Instructions: Shower Operative Area Clean and Dry: Keep Incision Clean/Dry Steristrips: Leave Steristrips Intact Ice Pack: Ice On and Off Site LOVE WATT DO Nov 20, 2017 10:41
[2017-11-20 12:00] VITALS: BP 90/54
--- NOTE | 2017-11-20 12:03 | Progress Note (SOAP) ---
Subjective Date Seen by Provider: Nov 20, 2017 Time Seen by Provider: 11:45 Subjective/Events-last exam Pt JESSICA, a little lethargic, apparently has been struggling a little with rehab and pain control, no current complaints. Objective Exam Vital Signs Date Time Temp Pulse Resp B/P (MAP) Pulse Ox O2 Delivery O2 Flow Rate FiO2 11/20/17 08:19 Nasal Cannula 1.00 11/20/17 08:00 97.6 96 22 97/61 (73) 92 Nasal Cannula 1.00 11/20/17 07:00 91 11/20/17 06:59 Nasal Cannula 1.00 11/20/17 04:00 97.4 86 16 106/54 (71) 97 Nasal Cannula 1.00 11/20/17 01:00 83 11/20/17 00:27 97.6 80 16 94/60 (71) 97 Nasal Cannula 1.00 11/19/17 20:15 Nasal Cannula 1.00 11/19/17 20:00 98.7 88 16 97/46 (63) 98 Nasal Cannula 1.00 11/19/17 19:00 89 11/19/17 16:00 97.3 85 16 95/55 (68) 99 Nasal Cannula 1.00 11/19/17 13:00 92 11/19/17 12:00 97.5 92 18 116/55 (75) 97 Nasal Cannula 1.00 I & O 11/20/17 06:59 Intake Total 1640 ml Output Total 100 ml Balance 1540 ml Capillary Refill : Less Than 3 SecondsLess Than 3 Seconds General Appearance: No Apparent Distress, WD/WN HEENT: Normal ENT Inspection Respiratory: No Accessory Muscle Use, No Respiratory Distress Cardiovascular: Regular Rate, Rhythm, Normal Peripheral Pulses Peripheral Pulses: 2+ Dorsalis Pedis (R), 2+ Left Dors-Pedis (L) Gastrointestinal: non tender, soft Extremity: Normal Capillary Refill, No Calf Tenderness, Other (RLE: hip dressing c/d/i, all compartments soft/compressible, motor/sensation grossly intact, foot well perfused.) Results Lab Laboratory Tests 11/19/17 15:48: Glucometer 167H 11/19/17 21:15: Glucometer 149H 11/20/17 06:39: Glucometer 40*L 11/20/17 06:52: White Blood Count 5.7, Red Blood Count 3.01L, Hemoglobin 8.4L, Hematocrit 27L, Mean Corpuscular Volume 89, Mean Corpuscular Hemoglobin 28, Mean Corpuscular Hemoglobin Concent 32, Red Cell Distribution Width 16.1H, Platelet Count 102L, Mean Platelet Volume 11.1H, Neutrophils (%) (Auto) 50, Lymphocytes (%) (Auto) 34 , Monocytes (%) (Auto) 13H, Eosinophils (%) (Auto) 3, Basophils (%) (Auto) 0, Neutrophils # (Auto) 2.9, Lymphocytes # (Auto) 1.9, Monocytes # (Auto) 0.8, Eosinophils # (Auto) 0.2, Basophils # (Auto) 0.0, Sodium Level 136, Potassium Level 4.9, Chloride Level 102, Carbon Dioxide Level 23, Anion Gap 11, Blood Urea Nitrogen 27H, Creatinine 0.83, Estimat Glomerular Filtration Rate > 60, BUN /Creatinine Ratio 33, Glucose Level 37*L, Calcium Level 8.3L 11/20/17 07:05: Glucometer 50*L 11/20/17 07:40: Glucometer 57*L 11/20/17 08:08: Glucometer 73 11/20/17 10:59: Glucometer 113H Microbiology 11/16/17 MRSA Screen - Final, Complete MRSA not isolated 11/19/17 Urine Culture - Preliminary, Resulted Sent To [facility] See Comments Assessment/Plan Assessment/Plan Assess & Plan/Chief Complaint S/P Bipolar hemiarthroplasty Right hip, POD #3 Orthopedically stable Continue to mobilize OOB with PT/OT, WBAT RLE, anterior hip precautions Acute post-op blood loss anemia, Hb at 8.4, currently asymptomatic, will monitor. Lovenox/SCDs for VTE prophylaxis; will plan to d/c on EC ASA for 3 weeks Current pain control regimen Bowel regimen D/C planning: SS consult for d/c planning; will need SNF; OK to d/c to SNF when bed available from ortho standpoint. Clinical Quality Measures Admission Status Admission Dx 82 y/o female with acute onset of severe Right hip pain and an inability to bear weight/ambulate on her RLE secondary to a mechanical GLF. Imaging studies demonstrate a displaced subcapital fracture of the Right femoral neck. This is an unstable injury that will need operative stabilization. Recommendation is bipolar hemiarthroplasty Right hip. I explained the details of the treatment plan in detail with the patient including the risks, benefits, potential complications, and expected outcomes. All of her questions have been answered to her satisfaction. She has given informed written consent to proceed as planned. Will plan for OR today. Remain NPO. Current pain control. Bedrest until after surgery. Dr. Ochoa for medical management. DVT/VTE Risk/Contraindication: Risk Factor Score Per Nursin RFS Level Per Nursing on Admit: 4+=Very High Contraindications-Pharm: Other *list below* LOVE WATT DO Nov 20, 2017 12:03
[2017-11-20 16:14] VITALS: BP 132/64
[2017-11-20 19:16] VITALS: BP 117/57
[2017-11-21] VITALS (7 sets, daily range): BP systolic 111–129; BP diastolic 52–59
[2017-11-21] MEDS: inSUlin ASPART (NovoLOG) 1 UNIT/0.01 ML (CHARGE PER UNIT) SC SCH ×4 (06:10→20:49)
[2017-11-21] MEDS: metFORMIN 500 MG (GLUCOPHAGE) TAB PO SCH (06:31)
--- NOTE | 2017-11-21 07:40 | Progress Note (SOAP) ---
Subjective Time Seen by Provider: 07:25 Subjective/Events-last exam Patient more confused today. Patient knows who I am. Patient does not know the date. Patient little more anemic. Magnesium low. UTI on Macrobid sensitive to staph epididymis. Patient not eating much. Patient more fragile Objective Exam Vital Signs Date Time Temp Pulse Resp B/P (MAP) Pulse Ox O2 Delivery O2 Flow Rate FiO2 11/21/17 05:00 97.2 79 19 111/53 (72) 95 Nasal Cannula 1.00 11/21/17 03:00 97.4 90 18 115/52 (73) 92 Nasal Cannula 2.00 11/21/17 01:00 90 11/21/17 00:00 97.3 91 16 114/59 (77) 92 Room Air 11/20/17 20:15 Room Air 11/20/17 19:16 98.0 93 16 117/57 (77) 92 Room Air 11/20/17 19:00 93 11/20/17 16:14 98.0 88 16 132/64 (86) 100 Room Air 11/20/17 13:51 87 11/20/17 12:00 98.0 88 16 90/54 (66) 100 Nasal Cannula 1.00 11/20/17 08:19 Nasal Cannula 1.00 11/20/17 08:00 97.6 96 22 97/61 (73) 92 Nasal Cannula 1.00 I & O 11/21/17 07:00 Intake Total 1940 ml Output Total 200 ml Balance 1740 ml Capillary Refill : Less Than 3 SecondsLess Than 3 Seconds General Appearance: No Apparent Distress, WD/WN HEENT: Normal ENT Inspection Neck: Normal Inspection Respiratory: Chest Non Tender, Lungs Clear, No Accessory Muscle Use, No Respiratory Distress Cardiovascular: Regular Rate, Rhythm, No Murmur Gastrointestinal: non tender, soft Results Lab Laboratory Tests 11/20/17 07:40: Glucometer 57*L 11/20/17 08:08: Glucometer 73 11/20/17 10:59: Glucometer 113H 11/20/17 16:17: Glucometer 111H 11/20/17 20:10: Glucometer 127H 11/21/17 02:54: Glucometer 183H 11/21/17 05:07: Glucometer 177H Microbiology 11/16/17 MRSA Screen - Final, Complete MRSA not isolated 11/19/17 Urine Culture - Final, [facility] Comments Assessment/Plan Assessment/Plan Assess & Plan/Chief Complaint Right hip fracture. Coronary artery disease. UTI. Hypomagnesemia. Hypokalemia. Diabetes. . 11/17/17. Right hip fracture. Coronary artery disease. UTI. Hypomagnesemia. Hypokalemia. Diabetes. Patient ready for surgery. . 11/18/17. Right hip fracture. Coronary artery disease. UTI due to Staphylococcus epididymis. Hypomagnesemia. Hypokalemia. Diabetes. Patient feeling good today. . 11/20/17. Right hip fracture had surgery. Coronary artery disease. UTI. Confusion. Patient not eating much. Diabetes. Patient more fragile today Clinical Quality Measures DVT/VTE Risk/Contraindication: Risk Factor Score Per Nursin RFS Level Per Nursing on Admit: 4+=Very High Contraindications-Pharm: Other *list below* TU SANCHEZ DO Nov 21, 2017 07:40
[2017-11-21 08:20] LABS: HEMOGLOBIN 8.6 G/DL (11.5-16.0); MEAN PLATELET VOLUME 10.9 FL (7.4-10.4); RED BLOOD COUNT 3.04 10^6/uL (4.35-5.85); RED CELL DISTRIBUTION WIDTH 15.9 % (10.0-14.5); WHITE BLOOD COUNT 4.1 10^3/uL (4.3-11.0)
[2017-11-21 08:38] LABS: BUN/CREATININE RATIO 37; CALCIUM 8.4 MG/DL (8.5-10.1); CARBON DIOXIDE 26 MMOL/L (21-32); CHLORIDE 103 MMOL/L (98-107); GFR ESTIMATED > 60; GLUCOSE 137 MG/DL (70-105); MAGNESIUM 1.7 MG/DL (1.8-2.4); POTASSIUM 5.2 MMOL/L (3.6-5.0); SODIUM 136 MMOL/L (135-145)
[2017-11-21] MEDS: MILK OF MAGNESIA 400 MG/5 ML 30 ML UDC PO NR ×2 (09:14→13:05)
[2017-11-21] MEDS: DIVALPROX SPRINKLE 125 MG (DEPAKOTE) CAP PO SCH ×3 (09:15→20:49)
[2017-11-21] MEDS: NITROFURANTOIN 100 MG (MACROBID) CAPSULE PO SCH ×2 (09:15→20:49)
[2017-11-21] MEDS: ENOXAPARIN 40 MG/0.4 ML (LOVENOX) SYR SC SCH (09:16)
--- NOTE | 2017-11-21 09:51 | Physical Therapy Daily Note ---
PT Daily Note-Current Subjective increase confusion and lethargy/yells with all mobility Pain Numeric Pain Scale: 10-Worst Possible Pain Location: Right Location Body Site: Hip Pain Description: Acute Mental Status Patient Orientation: Confused Attachments: Oxygen (1) Transfers Functional [place] Measure 0=Not Assessed/NA 4=Minimal Assistance 1=Total Assistance 5=Supervision or Setup 2=Maximal Assistance 6=Modified [place] 3=Moderate Assistance 7=Complete IndependenceIRFPAI Quality Coding Scale 6 Independent with activity with or without an assistive device 5 Patient requires set up or clean up by helper. Patient completes activity by themselves 4 Supervision or touching assist (CGA). [place] provide cues , steadying assist 3 The helper provides less than half the effort to complete the activity 2 The helper provides more than half the effort to complete the activity 1 Dependent. The helper does all the effort to complete an activity 7 Patient refused to complete or attempt activity 9 The patient did not perform the activity before the current illness or injury 88 Not attempted due to Medical conditions or safety concerns Transfers (B, C, W/C) (FIM): 1 Scootin Supine to/from Sit: 1 Sit to/from Stand: 2 Bed to/from Chair: 2 Patient yelling during all mobility and eyes closed. Patient unable to follow simple direction on this date. Weight Bearing Right Lower Extremity: Right Weight Bearing/Tolerated Left Lower Extremity: Left Full Weight Bearing Exercises Supine Ex: Ankle pumps, Heel Slides, Straight leg raise Supine Reps: 10 (AAROM with resistance with right LE mobility) Seated Therapy Exercises: Ankle pumps, Long arc quads Seated Reps: 15 (AAROM bilateraly with patient yelling with all mobility) Assessment Patient is up in recliner with needs met. Patient is decline cognitively and physically with therapy. RN is aware. Due to patient's level, PT to decrease frequency to Daily. From a PT standpoint, patient will require NH for continued care. PT Erp Manager Goals Jail Goals PT Jail Goals Time Frame: Dec 02, 2017 Transfers (B,C,W/C) (FIM): 4 Gait (FIM): 1 Gait distance (FIM): 1=up to 49 ft Distance: 25' Gait Level of Assist: 4 Gait Assistive Device: FWW PT Plan Treatment/Plan Treatment Plan: Continue Plan of Care Treatment Plan: Bed Mobility, Education, Functional Activity Tegan, Functional Strength, Gait, Safety, Therapeutic Exercise, Transfers Treatment Duration: Dec 02, 2017 Frequency: 11 times per week Estimated Hrs Per Day: .5 hour per day Patient and/or Family Agrees t: Yes Discharge Recommendations Therapy D/C Recommendations: Residential Placement, [facility] (TCU/NH) Time/GCodes Time In: 845 Time Out: 855 Total Billed Treatment Time: 10 Total Billed Treatment 1 visit FA 10 min NIKKO HO PT Nov 21, 2017 09:51
--- NOTE | 2017-11-21 13:38 | Occ Therapy Progress Note ---
Therapy Progress Note Nrsg reported that pt has declined over the weekend. Nrsg had pt up in chair earlier today and she would not open her eyes and fall risk. LOVE attempted to see pt. Pt opened eyes when asked then immediately closed them again. Pt required hand over hand to use cleansing cloth to wash hands and face. Pt would not hold water container to get drink. Nrsg has reported that she is being fed. Due to confusion and lethargy pt unable to be seen today. 1 visit MIKE WARD Nov 21, 2017 13:37
[2017-11-22] VITALS: BP 143/67
[2017-11-22 04:00] VITALS: BP 129/59
[2017-11-22] MEDS ORDERED: MILK OF MAGNESIA 400 MG/5 ML 30 ML UDC PO PRN (05:00)
[2017-11-22] MEDS: inSUlin ASPART (NovoLOG) 1 UNIT/0.01 ML (CHARGE PER UNIT) SC SCH ×2 (05:36→12:23)
[2017-11-22 06:03] LABS: BILIRUBIN,URINE NEGATIVE (NEGATIVE); CLARITY,URINE SLIGHTLY CLOUDY; COLOR,URINE YELLOW; GLUCOSE, URINE (UA) NEGATIVE (NEGATIVE); KETONES,URINE 1+ (NEGATIVE); LEUKOCYTE ESTERASE ,URINE 3+ (NEGATIVE); NITRITE,URINE NEGATIVE (NEGATIVE); PH,URINE 5 (5-9); PROTEIN,URINE 1+ (NEGATIVE); UROBILINOGEN,URINE NORMAL (NORMAL)
[2017-11-22 06:10] LABS: BACTERIA,URINE FEW /HPF; SQUAMOUS EPITHELIAL CELL,UR 0-2 /HPF; WBC,URINE >100 /HPF
[2017-11-22] MEDS ORDERED: MAGNESIUM 1 GM/100 ML IVPB 100 ML IV NR (07:30)
--- NOTE | 2017-11-22 07:41 | Progress Note (SOAP) ---
Subjective Time Seen by Provider: 07:40 Subjective/Events-last exam Patient confused today. [facility] to [facility]. Patient 3 person assist. Diabetes. Dementia appears to have Objective Exam Vital Signs Date Time Temp Pulse Resp B/P (MAP) Pulse Ox O2 Delivery O2 Flow Rate FiO2 11/22/17 04:00 98.0 86 16 129/59 (82) 98 Nasal Cannula 1.00 11/22/17 01:00 86 11/22/17 00:44 Nasal Cannula 1.00 11/22/17 00:00 97.0 97 20 143/67 (92) 95 Nasal Cannula 1.00 11/21/17 20:00 Nasal Cannula 1.00 11/21/17 19:30 97.5 93 20 118/57 (77) 95 Nasal Cannula 1.00 11/21/17 19:00 86 11/21/17 16:05 98.0 91 18 129/59 (82) 94 Nasal Cannula 1.00 11/21/17 13:00 83 11/21/17 12:00 97.6 85 20 116/57 (76) 96 Nasal Cannula 1.00 11/21/17 11:25 Nasal Cannula 1.00 11/21/17 08:04 Nasal Cannula 1.00 11/21/17 08:00 97.1 86 18 123/55 (77) 97 Nasal Cannula 1.00 I & O 11/22/17 07:00 Intake Total 780 ml Balance 780 ml Capillary Refill : Less Than 3 SecondsLess Than 3 Seconds General Appearance: No Apparent Distress, WD/WN HEENT: Normal ENT Inspection Neck: Full Range of Motion, Normal Inspection Respiratory: Normal Breath Sounds, No Accessory Muscle Use, No Respiratory Distress Cardiovascular: Regular Rate, Rhythm, No Murmur Gastrointestinal: non tender, soft Results Lab Laboratory Tests 11/21/17 08:12: White Blood Count 4.1L, Red Blood Count 3.04L, Hemoglobin 8.6L, Hematocrit 27L, Mean Corpuscular Volume 88, Mean Corpuscular Hemoglobin 28, Mean Corpuscular Hemoglobin Concent 32, Red Cell Distribution Width 15.9H, Platelet Count 94L, Mean Platelet Volume 10.9H, Sodium Level 136, Potassium Level 5.2H, Chloride Level 103, Carbon Dioxide Level 26, Anion Gap 7, Blood Urea Nitrogen 26H, Creatinine 0.70, Estimat Glomerular Filtration Rate > 60, BUN/Creatinine Ratio 37, Glucose Level 137H, Calcium Level 8.4L, Magnesium Level 1.7L 11/21/17 11:54: Glucometer 200H 11/21/17 16:38: Glucometer 176H 11/21/17 20:37: Glucometer 219H 11/22/17 05:16: Glucometer 154H 11/22/17 05:50: Urine Color YELLOW, Urine Clarity SLIGHTLY CLOUDY, Urine pH 5, Urine Specific [place] 1.015L, Urine Protein 1+H, Urine Glucose (UA) NEGATIVE, Urine Ketones 1+ H, Urine Nitrite NEGATIVE, Urine Bilirubin NEGATIVE, Urine Urobilinogen NORMAL, Urine Leukocyte Esterase 3+H, Urine RBC (Auto) 3+H, Urine RBC 2-5H, Urine WBC > 100H, Urine Squamous Epithelial Cells 0-2, Urine Crystals NONE, Urine Bacteria FEWH, Urine Casts NONE, Urine Mucus MODERATEH, Urine Culture Indicated YES Microbiology 11/16/17 MRSA Screen - Final, Complete MRSA not isolated 11/19/17 Urine Culture - Final, Complete Assessment/Plan Assessment/Plan Assess & Plan/Chief Complaint Right hip fracture. Coronary artery disease. UTI. Hypomagnesemia. Hypokalemia. Diabetes. . 11/17/17. Right hip fracture. Coronary artery disease. UTI. Hypomagnesemia. Hypokalemia. Diabetes. Patient ready for surgery. . 11/18/17. Right hip fracture. Coronary artery disease. UTI due to Staphylococcus epididymis. Hypomagnesemia. Hypokalemia. Diabetes. Patient feeling good today. . 11/20/17. Right hip fracture had surgery. Coronary artery disease. UTI. Confusion. Patient not eating much. Diabetes. Patient more fragile today. . 11/22/17. Right hip fracture. Coronary artery disease. UTI. Confusion. Diabetes. [facility]. Patient asleep person assist. Clinical Quality Measures DVT/VTE Risk/Contraindication: Risk Factor Score Per Nursin RFS Level Per Nursing on Admit: 4+=Very High Contraindications-Pharm: Other *list below* TU SANCHEZ DO Nov 22, 2017 07:41
--- NOTE | 2017-11-22 07:45 | Discharge Inst-Skilled Nursing ---
Discharge Inst-Skilled NF Patient Instructions Patient Problems: Fractured hip. Confusion. Diabetes. Coronary artery disease Consult/Follow Up/Orders Follow Up Appt.: 2 office in one week. Make appointment with orthopedic surgeon Skilled NF Admit to: [facility] Certification ([facility]) I certify that SNF services are required to be given on an inpatient basis because of the above named patient's need for residential care on a continuing basis for the conditions(s) for which he/she was receiving inpatient hospital services prior to his/her transfer to the SNF. Custodial Facility Order: [facility]-Evaluate & Treat, Physical Therapy-Evaluate & Treat Discharge Diet: No Restrictions Daily Activity as Tolerated: Yes New & Resume Previous Orders Johnny Sanchez Nov 22, 2017 07:44 JOHNNY SANCHEZ DO Nov 22, 2017 07:45
[2017-11-22] MEDS: fentaNYL INJECTION 100 MCG/2 ML AMP IV PRN (07:46)
[2017-11-22] MEDS: NITROFURANTOIN 100 MG (MACROBID) CAPSULE PO SCH (07:48)
[2017-11-22] MEDS: DIVALPROX SPRINKLE 125 MG (DEPAKOTE) CAP PO SCH (07:48)
[2017-11-22] MEDS: ENOXAPARIN 40 MG/0.4 ML (LOVENOX) SYR SC SCH (07:48)
[2017-11-22] MEDS: HYDROcodone/APAP 5 MG/325 MG (LORTAB) TAB PO PRN (07:49)
[2017-11-22 08:00] VITALS: BP 152/67
[2017-11-22] MEDS ORDERED: ASPI-808 PO (10:55)
[2017-11-22 14:14] VITALS: BP 152/67
--- NOTE | 2017-11-28 07:25 | Discharge Summary ---
Diagnosis/Chief Complaint Date of Admission November 16, 2017 at 09:22 Date of Discharge Nov 22, 2017 at 14:28 Discharge Date: Nov 22, 2017 Discharge Time: 07:20 Admission Diagnosis Admission Diagnosis Right hip fracture. Diabetes. fall Discharge Diagnosis Right hip fracture. Hypotension. Anemia. Confusion. Dementia. Coronary artery disease. UTI. Staph epididymis culture for UTI. Diabetes. Hypokalemia. Hypomagnesemia area Abrasion of head. Abrasion of right knee. DO NOT RESUSCITATE. GERD. Reason Hospital Visit Resident of [facility] living. Patient fell. Patient hurt right hip. Patient came out to the emergency room. Patient has fractured right femoral neck. Patient has history of CAD. Patient is diabetic. Patient knows who I am and the date Discharge Summary Procedures Right hip surgery Consultations Orthopedics Discharge Physical Examination Allergies: Coded Allergies: No Known Drug Allergies (Verified , 08/20/15) Vitals & I&Os Vital Signs Date Time Temp Pulse Resp B/P (MAP) Pulse Ox O2 Delivery O2 Flow Rate FiO2 11/22/17 14:14 92 18 152/67 100 Nasal Cannula 1.00 11/22/17 08:00 98.1 Hospital Course Patient in hospital had problems with UTI, confusion. And inability to walk. [facility] (last 24 hrs) Laboratory Tests 11/16/17 07:30: Urine Color YELLOW, Urine Clarity CLEAR, Urine pH 6, Urine Specific [place] 1.010L, Urine Protein 1+H, Urine Glucose (UA) NEGATIVE, Urine Ketones NEGATIVE, Urine Nitrite POSITIVEH, Urine Bilirubin NEGATIVE, Urine Urobilinogen NORMAL, Urine Leukocyte Esterase 3+H, Urine RBC (Auto) NEGATIVE, Urine RBC NONE, Urine WBC 50-100H, Urine Squamous Epithelial Cells 2-5, Urine Renal Epithelial Cells 2 -5, Urine Crystals NONE, Urine Bacteria MODERATEH, Urine Casts NONE, Urine Mucus NEGATIVE, Urine Culture Indicated YES 11/16/17 07:45: Glucometer 71 11/16/17 07:56: White Blood Count 4.2L, Red Blood Count 4.18L, Hemoglobin 11.4L, Hematocrit 37, Mean Corpuscular Volume 87, Mean Corpuscular Hemoglobin 27, Mean Corpuscular Hemoglobin Concent 31L, Red Cell Distribution Width 15.8H, Platelet Count 137, Mean Platelet Volume 10.9H, Neutrophils (%) (Auto) 41L, Lymphocytes (%) (Auto) 47H, Monocytes (%) (Auto) 8, Eosinophils (%) (Auto) 4, Basophils (%) (Auto) 1, Neutrophils # (Auto) 1.7L, Lymphocytes # (Auto) 1.9, Monocytes # (Auto) 0.4, Eosinophils # (Auto) 0.2, Basophils # (Auto) 0.0, Sodium Level 142, Potassium Level 4.0, Chloride Level 103, Carbon Dioxide Level 27, Anion Gap 12, Blood Urea Nitrogen 12, Creatinine 0.80, Estimat Glomerular Filtration Rate > 60, BUN/ Creatinine Ratio 15, Glucose Level 73, Calcium Level 9.0, Magnesium Level 0.9*L , Total Bilirubin 0.5, Aspartate Amino Transf (AST/SGOT) 33, Alanine Aminotransferase (ALT/SGPT) 11, Alkaline Phosphatase 85, Total Protein 6.4, Albumin 3.3, Valproic Acid (Depakene) Level 16.2L 11/16/17 09:22: Lab Scanned Report Referred Lab Report 11/16/17 11:04: Glucometer 78 11/16/17 16:10: Glucometer 105 11/16/17 19:53: Glucometer 125H 11/16/17 23:35: Glucometer 256H 11/17/17 04:48: Glucometer 272H 11/17/17 05:44: White Blood Count 4.3, Red Blood Count 3.82L, Hemoglobin 10.5L, Hematocrit 33L, Mean Corpuscular Volume 87, Mean Corpuscular Hemoglobin 27, Mean Corpuscular Hemoglobin Concent 31L, Red Cell Distribution Width 16.0H, Platelet Count 100L, Mean Platelet Volume 10.9H, Neutrophils (%) (Auto) 64, Lymphocytes (%) (Auto) 25 , Monocytes (%) (Auto) 8, Eosinophils (%) (Auto) 3, Basophils (%) (Auto) 1, Neutrophils # (Auto) 2.7, Lymphocytes # (Auto) 1.1, Monocytes # (Auto) 0.4, Eosinophils # (Auto) 0.1, Basophils # (Auto) 0.0, Sodium Level 142, Potassium Level 4.4, Chloride Level 108H, Carbon Dioxide Level 25, Anion Gap 9, Blood Urea Nitrogen 9, Creatinine 0.69, Estimat Glomerular Filtration Rate > 60, BUN/ Creatinine Ratio 13, Glucose Level 280H, Calcium Level 8.3L, Magnesium Level 1.3L, Total Bilirubin 0.4, Aspartate Amino Transf (AST/SGOT) 25, Alanine Aminotransferase (ALT/SGPT) 11, Alkaline Phosphatase 76, Total Protein 5.5L, Albumin 2.8L 11/17/17 07:29: Glucometer 255H 11/17/17 12:26: Glucometer 231H 11/17/17 15:10: Glucometer 162H 11/17/17 16:13: Glucometer 188H 11/17/17 20:40: Glucometer 223H 11/17/17 23:42: Glucometer 198H 11/18/17 03:45: Glucometer 170H 11/18/17 06:20: White Blood Count 7.5, Red Blood Count 3.48L, Hemoglobin 9.6L, Hematocrit 31L, Mean Corpuscular Volume 89, Mean Corpuscular Hemoglobin 28, Mean Corpuscular Hemoglobin Concent 31L, Red Cell Distribution Width 16.1H, Platelet Count 92L, Mean Platelet Volume 11.2H, Sodium Level 138, Potassium Level 5.0, Chloride Level 105, Carbon Dioxide Level 23, Anion Gap 10, Blood Urea Nitrogen 9, Creatinine 0.66, Estimat Glomerular Filtration Rate > 60, BUN/Creatinine Ratio 14, Glucose Level 186H, Calcium Level 8.2L, Magnesium Level 1.5L 11/18/17 07:24: Glucometer 219H 11/18/17 11:25: Glucometer 219H 11/18/17 17:09: Glucometer 164H 11/18/17 21:26: Glucometer 150H 11/19/17 04:19: White Blood Count 6.9, Red Blood Count 3.06L, Hemoglobin 8.6L, Hematocrit 27L, Mean Corpuscular Volume 89, Mean Corpuscular Hemoglobin 28, Mean Corpuscular Hemoglobin Concent 32, Red Cell Distribution Width 15.9H, Platelet Count 84L, Mean Platelet Volume 11.3H, Sodium Level 134L, Potassium Level 5.2H, Chloride Level 102, Carbon Dioxide Level 20L, Anion Gap 12, Blood Urea Nitrogen 18, Creatinine 0.90, Estimat Glomerular Filtration Rate 60, BUN/Creatinine Ratio 20 , Glucose Level 110H, Calcium Level 8.1L, Magnesium Level 2.1 11/19/17 04:30: Urine Color YELLOW, Urine Clarity CLEAR, Urine pH 5, Urine Specific [place] 1.020, Urine Protein 1+H, Urine Glucose (UA) NEGATIVE, Urine Ketones 1+H, Urine Nitrite NEGATIVE, Urine Bilirubin NEGATIVE, Urine Urobilinogen NORMAL, Urine Leukocyte Esterase 3+H, Urine RBC (Auto) NEGATIVE, Urine RBC NONE, Urine WBC 10- 25H, Urine Squamous Epithelial Cells 10-25H, Urine Crystals NONE, Urine Bacteria FEWH, Urine Casts NONE, Urine Mucus NEGATIVE, Urine Culture Indicated YES 11/19/17 11:38: Glucometer 137H 11/19/17 15:48: Glucometer 167H 11/19/17 21:15: Glucometer 149H 11/20/17 06:39: Glucometer 40*L 11/20/17 06:52: White Blood Count 5.7, Red Blood Count 3.01L, Hemoglobin 8.4L, Hematocrit 27L, Mean Corpuscular Volume 89, Mean Corpuscular Hemoglobin 28, Mean Corpuscular Hemoglobin Concent 32, Red Cell Distribution Width 16.1H, Platelet Count 102L, Mean Platelet Volume 11.1H, Neutrophils (%) (Auto) 50, Lymphocytes (%) (Auto) 34 , Monocytes (%) (Auto) 13H, Eosinophils (%) (Auto) 3, Basophils (%) (Auto) 0, Neutrophils # (Auto) 2.9, Lymphocytes # (Auto) 1.9, Monocytes # (Auto) 0.8, Eosinophils # (Auto) 0.2, Basophils # (Auto) 0.0, Sodium Level 136, Potassium Level 4.9, Chloride Level 102, Carbon Dioxide Level 23, Anion Gap 11, Blood Urea Nitrogen 27H, Creatinine 0.83, Estimat Glomerular Filtration Rate > 60, BUN /Creatinine Ratio 33, Glucose Level 37*L, Calcium Level 8.3L, Cortisol AM Sample 13.4, Adrenocorticotropic Hormone 28H 11/20/17 07:05: Glucometer 50*L 11/20/17 07:40: Glucometer 57*L 11/20/17 08:08: Glucometer 73 11/20/17 10:59: Glucometer 113H 11/20/17 16:17: Glucometer 111H 11/20/17 20:10: Glucometer 127H 11/21/17 02:54: Glucometer 183H 11/21/17 05:07: Glucometer 177H 11/21/17 08:12: White Blood Count 4.1L, Red Blood Count 3.04L, Hemoglobin 8.6L, Hematocrit 27L, Mean Corpuscular Volume 88, Mean Corpuscular Hemoglobin 28, Mean Corpuscular Hemoglobin Concent 32, Red Cell Distribution Width 15.9H, Platelet Count 94L, Mean Platelet Volume 10.9H, Sodium Level 136, Potassium Level 5.2H, Chloride Level 103, Carbon Dioxide Level 26, Anion Gap 7, Blood Urea Nitrogen 26H, Creatinine 0.70, Estimat Glomerular Filtration Rate > 60, BUN/Creatinine Ratio 37, Glucose Level 137H, Calcium Level 8.4L, Magnesium Level 1.7L 11/21/17 11:54: Glucometer 200H 11/21/17 16:38: Glucometer 176H 11/21/17 20:37: Glucometer 219H 11/22/17 05:16: Glucometer 154H 11/22/17 05:50: Urine Color YELLOW, Urine Clarity SLIGHTLY CLOUDY, Urine pH 5, Urine Specific [place] 1.015L, Urine Protein 1+H, Urine Glucose (UA) NEGATIVE, Urine Ketones 1+ H, Urine Nitrite NEGATIVE, Urine Bilirubin NEGATIVE, Urine Urobilinogen NORMAL, Urine Leukocyte Esterase 3+H, Urine RBC (Auto) 3+H, Urine RBC 2-5H, Urine WBC > 100H, Urine Squamous Epithelial Cells 0-2, Urine Crystals NONE, Urine Bacteria FEWH, Urine Casts NONE, Urine Mucus MODERATEH, Urine Culture Indicated YES Microbiology 11/16/17 MRSA Screen - Final, Complete MRSA not isolated 11/22/17 Urine Culture - Final, Complete Sent To [facility] See Comments Laboratory Tests 11/16/17 07:56 11/17/17 05:44 11/18/17 06:20 11/19/17 04:19 11/20/17 06:52 11/21/17 08:12 Pending Labs Microbiology Date/Time Source Procedure Growth Status 11/16/17 22:00 Nasal MRSA Screen - Final MRSA not isolated Complete 11/22/17 05:50 Urine Straight Cath, In/Out Urine Culture - Final Sent To [facility] See Comments Complete 11/19/17 04:30 Urine Clean Catch Urine Culture - Final Complete 11/16/17 07:30 Urine Clean Catch Urine Culture - Final Staphylococcus epidermidis Complete Laboratory Tests 11/16/17 07:30: Urine Color YELLOW, Urine Clarity CLEAR, Urine pH 6, Urine Specific [place] 1.010, Urine Protein 1+, Urine Glucose (UA) NEGATIVE, Urine Ketones NEGATIVE, Urine Nitrite POSITIVE, Urine Bilirubin NEGATIVE, Urine Urobilinogen NORMAL, Urine Leukocyte Esterase 3+, Urine RBC (Auto) NEGATIVE, Urine RBC NONE, Urine WBC 50-100, Urine Squamous Epithelial Cells 2-5, Urine Renal Epithelial Cells 2- 5, Urine Crystals NONE, Urine Bacteria MODERATE, Urine Casts NONE, Urine Mucus NEGATIVE, Urine Culture Indicated YES 11/16/17 07:45: Glucometer 71 11/16/17 07:56: White Blood Count 4.2, Red Blood Count 4.18, Hemoglobin 11.4, Hematocrit 37, Mean Corpuscular Volume 87, Mean Corpuscular Hemoglobin 27, Mean Corpuscular Hemoglobin Concent 31, Red Cell Distribution Width 15.8, Platelet Count 137, Mean Platelet Volume 10.9, Neutrophils (%) (Auto) 41, Lymphocytes (%) (Auto) 47 , Monocytes (%) (Auto) 8, Eosinophils (%) (Auto) 4, Basophils (%) (Auto) 1, Neutrophils # (Auto) 1.7, Lymphocytes # (Auto) 1.9, Monocytes # (Auto) 0.4, Eosinophils # (Auto) 0.2, Basophils # (Auto) 0.0, Sodium Level 142, Potassium Level 4.0, Chloride Level 103, Carbon Dioxide Level 27, Anion Gap 12, Blood Urea Nitrogen 12, Creatinine 0.80, Estimat Glomerular Filtration Rate > 60, BUN/ Creatinine Ratio 15, Glucose Level 73, Calcium Level 9.0, Magnesium Level 0.9, Total Bilirubin 0.5, Aspartate Amino Transf (AST/SGOT) 33, Alanine Aminotransferase (ALT/SGPT) 11, Alkaline Phosphatase 85, Total Protein 6.4, Albumin 3.3, Valproic Acid (Depakene) Level 16.2 11/16/17 09:22: Lab Scanned Report Referred Lab Report 11/16/17 11:04: Glucometer 78 11/16/17 16:10: Glucometer 105 11/16/17 19:53: Glucometer 125 11/16/17 23:35: Glucometer 256 11/17/17 04:48: Glucometer 272 11/17/17 05:44: White Blood Count 4.3, Red Blood Count 3.82, Hemoglobin 10.5, Hematocrit 33, Mean Corpuscular Volume 87, Mean Corpuscular Hemoglobin 27, Mean Corpuscular Hemoglobin Concent 31, Red Cell Distribution Width 16.0, Platelet Count 100, Mean Platelet Volume 10.9, Neutrophils (%) (Auto) 64, Lymphocytes (%) (Auto) 25 , Monocytes (%) (Auto) 8, Eosinophils (%) (Auto) 3, Basophils (%) (Auto) 1, Neutrophils # (Auto) 2.7, Lymphocytes # (Auto) 1.1, Monocytes # (Auto) 0.4, Eosinophils # (Auto) 0.1, Basophils # (Auto) 0.0, Sodium Level 142, Potassium Level 4.4, Chloride Level 108, Carbon Dioxide Level 25, Anion Gap 9, Blood Urea Nitrogen 9, Creatinine 0.69, Estimat Glomerular Filtration Rate > 60, BUN/ Creatinine Ratio 13, Glucose Level 280, Calcium Level 8.3, Magnesium Level 1.3, Total Bilirubin 0.4, Aspartate Amino Transf (AST/SGOT) 25, Alanine Aminotransferase (ALT/SGPT) 11, Alkaline Phosphatase 76, Total Protein 5.5, Albumin 2.8 11/17/17 07:29: Glucometer 255 11/17/17 12:26: Glucometer 231 11/17/17 15:10: Glucometer 162 11/17/17 16:13: Glucometer 188 11/17/17 20:40: Glucometer 223 11/17/17 23:42: Glucometer 198 11/18/17 03:45: Glucometer 170 11/18/17 06:20: White Blood Count 7.5, Red Blood Count 3.48, Hemoglobin 9.6, Hematocrit 31, Mean Corpuscular Volume 89, Mean Corpuscular Hemoglobin 28, Mean Corpuscular Hemoglobin Concent 31, Red Cell Distribution Width 16.1, Platelet Count 92, Mean Platelet Volume 11.2, Sodium Level 138, Potassium Level 5.0, Chloride Level 105, Carbon Dioxide Level 23, Anion Gap 10, Blood Urea Nitrogen 9, Creatinine 0.66, Estimat Glomerular Filtration Rate > 60, BUN/Creatinine Ratio 14, Glucose Level 186, Calcium Level 8.2, Magnesium Level 1.5 11/18/17 07:24: Glucometer 219 11/18/17 11:25: Glucometer 219 11/18/17 17:09: Glucometer 164 11/18/17 21:26: Glucometer 150 11/19/17 04:19: White Blood Count 6.9, Red Blood Count 3.06, Hemoglobin 8.6, Hematocrit 27, Mean Corpuscular Volume 89, Mean Corpuscular Hemoglobin 28, Mean Corpuscular Hemoglobin Concent 32, Red Cell Distribution Width 15.9, Platelet Count 84, Mean Platelet Volume 11.3, Sodium Level 134, Potassium Level 5.2, Chloride Level 102, Carbon Dioxide Level 20, Anion Gap 12, Blood Urea Nitrogen 18, Creatinine 0.90, Estimat Glomerular Filtration Rate 60, BUN/Creatinine Ratio 20 , Glucose Level 110, Calcium Level 8.1, Magnesium Level 2.1 11/19/17 04:30: Urine Color YELLOW, Urine Clarity CLEAR, Urine pH 5, Urine Specific [place] 1.020, Urine Protein 1+, Urine Glucose (UA) NEGATIVE, Urine Ketones 1+, Urine Nitrite NEGATIVE, Urine Bilirubin NEGATIVE, Urine Urobilinogen NORMAL, Urine Leukocyte Esterase 3+, Urine RBC (Auto) NEGATIVE, Urine RBC NONE, Urine WBC 10- 25, Urine Squamous Epithelial Cells 10-25, Urine Crystals NONE, Urine Bacteria FEW, Urine Casts NONE, Urine Mucus NEGATIVE, Urine Culture Indicated YES 11/19/17 11:38: Glucometer 137 11/19/17 15:48: Glucometer 167 11/19/17 21:15: Glucometer 149 11/20/17 06:39: Glucometer 40 11/20/17 06:52: White Blood Count 5.7, Red Blood Count 3.01, Hemoglobin 8.4, Hematocrit 27, Mean Corpuscular Volume 89, Mean Corpuscular Hemoglobin 28, Mean Corpuscular Hemoglobin Concent 32, Red Cell Distribution Width 16.1, Platelet Count 102, Mean Platelet Volume 11.1, Neutrophils (%) (Auto) 50, Lymphocytes (%) (Auto) 34 , Monocytes (%) (Auto) 13, Eosinophils (%) (Auto) 3, Basophils (%) (Auto) 0, Neutrophils # (Auto) 2.9, Lymphocytes # (Auto) 1.9, Monocytes # (Auto) 0.8, Eosinophils # (Auto) 0.2, Basophils # (Auto) 0.0, Sodium Level 136, Potassium Level 4.9, Chloride Level 102, Carbon Dioxide Level 23, Anion Gap 11, Blood Urea Nitrogen 27, Creatinine 0.83, Estimat Glomerular Filtration Rate > 60, BUN/ Creatinine Ratio 33, Glucose Level 37, Calcium Level 8.3, Cortisol AM Sample 13.4, Adrenocorticotropic Hormone 28 11/20/17 07:05: Glucometer 50 11/20/17 07:40: Glucometer 57 11/20/17 08:08: Glucometer 73 11/20/17 10:59: Glucometer 113 11/20/17 16:17: Glucometer 111 11/20/17 20:10: Glucometer 127 11/21/17 02:54: Glucometer 183 11/21/17 05:07: Glucometer 177 11/21/17 08:12: White Blood Count 4.1, Red Blood Count 3.04, Hemoglobin 8.6, Hematocrit 27, Mean Corpuscular Volume 88, Mean Corpuscular Hemoglobin 28, Mean Corpuscular Hemoglobin Concent 32, Red Cell Distribution Width 15.9, Platelet Count 94, Mean Platelet Volume 10.9, Sodium Level 136, Potassium Level 5.2, Chloride Level 103, Carbon Dioxide Level 26, Anion Gap 7, Blood Urea Nitrogen 26, Creatinine 0.70, Estimat Glomerular Filtration Rate > 60, BUN/Creatinine Ratio 37, Glucose Level 137, Calcium Level 8.4, Magnesium Level 1.7 11/21/17 11:54: Glucometer 200 11/21/17 16:38: Glucometer 176 11/21/17 20:37: Glucometer 219 11/22/17 05:16: Glucometer 154 11/22/17 05:50: Urine Color YELLOW, Urine Clarity SLIGHTLY CLOUDY, Urine pH 5, Urine Specific [place] 1.015, Urine Protein 1+, Urine Glucose (UA) NEGATIVE, Urine Ketones 1+, Urine Nitrite NEGATIVE, Urine Bilirubin NEGATIVE, Urine Urobilinogen NORMAL, Urine Leukocyte Esterase 3+, Urine RBC (Auto) 3+, Urine RBC 2-5, Urine WBC >100 , Urine Squamous Epithelial Cells 0-2, Urine Crystals NONE, Urine Bacteria FEW, Urine Casts NONE, Urine Mucus MODERATE, Urine Culture Indicated YES Discharge Home Medications: Active Scripts Active Aspirin 325 Mg Tablet 325 Mg PO BID 90 Days Reported Tramadol HCl 50 Mg Tablet 50 Mg PO TID Milk of Magnesia (Magnesium Hydroxide) 400 Mg/5 Ml Oral.susp 2 Tbs PO DAILY PRN Divalproex Sodium 125 Mg Cap.sprink 125 Mg PO TID Cyanocobalamin Injection (Cyanocobalamin) 1,000 Mcg/Ml Inj 1,000 Mcg IJ EVERY OTHER TUESDAY Vitamin C (Ascorbic Acid) 500 Mg Tablet 500 Mg PO DAILY Novolog (Insulin Aspart) 100 Unit/1 Ml Susp SQ BIDAC 60-200 =0 UNITS 201-250=3 UNITS 251-300=5 UNITS 301-350=7 UNITS 351-400=9 UNITS IF GREATER THAN 400 CALL Cranberry (Cranberry Fruit) 450 Mg Tablet 450 Mg PO DAILY Loratadine 10 Mg Tablet 10 Mg PO DAILY Acetaminophen Extra Strength (Acetaminophen) 500 Mg Tablet 500 Mg PO Q6H PRN Metformin HCl 500 Mg Tablet 1,000 Mg PO BID TAKES 2 (500MG) TABLETS Metoprolol Succinate 25 Mg Tab.er.24h 25 Mg PO DAILY Instructions to patient/family Please see electronic discharge instructions given to patient. Clinical Quality Measures DVT/VTE Risk/Contraindication: Risk Factor Score Per Nursin RFS Level Per Nursing on Admit: 4+=Very High Contraindications-Pharm: Other *list below* TU SANCHEZ DO Nov 28, 2017 07:25
== END 2017-11-22 14:28 | DRG 470 ==
LOC: EDUNIT# 07:06 → ER 07:07 → 4TH 09:22
PROVIDERS: ADMIT Family Medicine; ATTEND Family Medicine
PROC: 0SRR01A Replacement of Right Hip Joint, Femoral Surface with Metal Synthetic Substitute, Uncemented, Open Approach (ICD-10-PCS; principal; 2017-11-17 13:34)
DX: S72.011A Unspecified intracapsular fracture of right femur, initial encounter for closed fracture (principal); N39.0 Urinary tract infection, site not specified; B95.7 Other staphylococcus as the cause of diseases classified elsewhere; D62 Acute posthemorrhagic anemia; S01.01XA Laceration without foreign body of scalp, initial encounter; S00.81XA Abrasion of other part of head, initial encounter; I25.10 Atherosclerotic heart disease of native coronary artery without angina pectoris; I25.2 Old myocardial infarction; Z66 Do not resuscitate; I10 Essential (primary) hypertension; E78.00 Pure hypercholesterolemia, unspecified; E11.649 Type 2 diabetes mellitus with hypoglycemia without coma; J44.9 Chronic obstructive pulmonary disease, unspecified; E83.42 Hypomagnesemia; E87.6 Hypokalemia; R55 Syncope and collapse; F03.90 Unspecified dementia, unspecified severity, without behavioral disturbance, psychotic disturbance, mood disturbance, and anxiety; K21.9 Gastro-esophageal reflux disease without esophagitis; H91.90 Unspecified hearing loss, unspecified ear; M19.91 Primary osteoarthritis, unspecified site; E87.5 Hyperkalemia; W18.30XA Fall on same level, unspecified, initial encounter; Y92.122 Bedroom in nursing home as the place of occurrence of the external cause; Z95.5 Presence of coronary angioplasty implant and graft; Z87.891 Personal history of nicotine dependence; Z79.4 Long term (current) use of insulin; Z23 Encounter for immunization
CPT/HCPCS: 36415; 70450; 71045; 72125; 72170; 73562; 80048; 80053; 80164; 81000; 82024; 82533; 82962; 83735; 85025; 85027; 87077; 87081; 87088; 87186; 90471; 90715; 93005; 93041; 94664; 96361; 96365; 96367; 96375

== ENCOUNTER 2018-03-08 13:28 | Emergency (ER) | payer MEDICARE, MEDICAID ==
[~2018-03-08] VITALS: Ht 172.7 cm; Wt 58.1 kg
[~2018-03-08 13:28] MED LIST changes: +ASPI-808 PO; -CODE118S2 PO; +CODE118S4 PO; +DIVA125C PO; +DIVA125C10 PO; +DIVA125T32 PO; -DVL125C PO; +MAGN400O7 PO; +METF-397 PO; -METF500T5 PO; +NAPR-1071 PO; +POLY15DR14 OU; +RT-ALBUINH IH; +TRAM50TA2 PO
[2018-03-08] MEDS ORDERED: DEXTROSE 50% 50 ML (IMS) SYR ONE (13:33)
[2018-03-08] MEDS ORDERED: NS IV 1000 ML 1,000 ML IV SCH (13:36)
[2018-03-08] MEDS ORDERED: CEFEPIME INJECTION 1,000 MG in NS (IVPB) 50 ML IV ONE (13:45)
[2018-03-08] MEDS ORDERED: DEXTROSE 50% 50 ML (IMS) SYR IV ONE (13:45)
--- NOTE | 2018-03-08 13:48 | ED General ---
General Chief Complaint: Unresponsive Stated Complaint: LETHARGIC Source of Information: Patient, EMS Exam Limitations: No Limitations History of Present Illness Date Seen by Provider: Mar 08, 2018 Time Seen by Provider: 13:27 Initial Comments Patient presents to ER by EMS from the long-term with chief complaint she's been lethargic today. Not eating for the past several days. They called her son and he requested that they sent her to the ER to be evaluated. The patient is that he was told that some element pale, appendectomy breathing and nonresponsive. Blood sugar obtained in the ER shows 10. EMS was unable to get an IV in route. Radial pulses are nonpalpable but the heart tones are about 110. No other given history other than the patient has been declining. She is a DO NOT RESUSCITATE. Allergies and Home Medications Allergies Coded Allergies: No Known Drug Allergies (Verified , 08/20/15) Home Medications Acetaminophen 500 Mg Tablet, 500 MG PO Q6H PRN for PAIN-MILD, (Reported) Albuterol Sulfate 1 Puff Puff, 2 PUFF IH Q8H PRN for CONGESTION, (Reported) 1 PUFF = 90 MCG Ascorbic Acid 500 Mg Tablet, 500 MG PO DAILY, (Reported) Aspirin 81 Mg Tablet.dr, 81 MG PO DAILY, (Reported) Cranberry Fruit 450 Mg Tablet, 450 MG PO DAILY, (Reported) Cyanocobalamin 1,000 Mcg/Ml Inj, 1,000 MCG IJ EVERY OTHER TUESDAY, (Reported) Divalproex Sodium 125 Mg Tablet.dr, 125 MG PO TID, (Reported) Insulin Aspart 100 Unit/1 Ml Susp, SQ BIDAC, (Reported) 60-200 =0 UNITS 201-250=3 UNITS 251-300=5 UNITS 301-350=7 UNITS 351-400=9 UNITS IF GREATER THAN 400 CALL Magnesium Hydroxide 400 Mg/5 Ml Oral.susp, 2 TBS PO DAILY PRN for CONSTIPATION- 7TH LINE, (Reported) Metformin HCl 500 Mg Tablet, 500 MG PO BID, (Reported) Metoprolol Succinate 25 Mg Tab.er.24h, 25 MG PO DAILY, (Reported) Naproxen 500 Mg Tablet, 500 MG PO BID, (Reported) Polyvinyl Alcohol/Povidone 15 Ml Drops, 1 DROP OU BID, (Reported) Tramadol HCl 50 Mg Tablet, 50 MG PO TID, (Reported) Patient Home Medication List Home Medication List Reviewed: Yes Review of Systems Review of Systems Constitutional: see HPI (review of systems per adult care manager from the long-term.); No chills, No diaphoresis EENTM: No ear discharge, No ear pain Respiratory: No cough Gastrointestinal: No heartburn, No vomiting Genitourinary: decreased output; No discharge Musculoskeletal: No back pain, No joint pain Past Sgitqxu-Palpcr-Havwza Hx Patient Social History Alcohol Use: Denies Use Recreational Drug Use: No Smoking Status: Never a Smoker Former Smoker, Quit: November 16, 1998 Recent Hopitalizations: Yes (yes 09/22/17 for uti) Immunizations Up To Date Tetanus Booster (TDap): Unknown PED Vaccines UTD: No Date of Pneumonia Vaccine: Mar 15, 2015 Date of Influenza Vaccine: Feb 18, 2015 Seasonal Allergies Seasonal Allergies: No Past Medical History Surgeries: Yes Section, Coronary Stent, Orthopedic Respiratory: Yes (BRONCHITIS) Currently Using CPAP: No Currently Using BIPAP: No Cardiac: Yes Chronic Edema/Swelling, Coronary Artery Disease, Heart Attack, High Cholesterol , Hypertension Neurological: No Dementia Reproductive Disorders: No Sexually Transmitted Disease: No HIV/AIDS: No Genitourinary: Yes (recurrent bladder infections) UTI-Chronic Gastrointestinal: Yes Gastroesophageal Reflux, Chronic Diarrhea Musculoskeletal: Yes Arthritis Endocrine: Yes Diabetes, Insulin dep HEENT: No Loss of Vision: Bilateral Hearing Impairment: Hard of Hearing Cancer: No Psychosocial: No Integumentary: No Blood Disorders: No Adverse Reaction/Blood Tranf: No Family Medical History Alzheimer's disease 19 MOTHER G8 SISTER Diabetes mellitus G8 BROTHER Parkinson's disease 19 MOTHER Physical Exam-Suspected Sepsis Physical Exam Vital Signs Vital Signs - First Documented Capillary Refill : Height, Weight, BMI Height: 5'6.00" Weight: 127lbs. 0.0oz. [id number]; 20.5 BMI Method:Stated General Appearance: Severe Distress, Thin Eyes: Bilateral Eye Normal Inspection, Bilateral Eye PERRL, Bilateral Eye EOMI HEENT: PERRL/EOMI, TMs Normal; No Moist Mucous Membranes Neck: Full Range of Motion, Normal Inspection Respiratory: Chest Non Tender, Lungs Clear, Normal Breath Sounds Cardiovascular: Regular Rate, Rhythm, No Edema, Normal Peripheral Pulses, Tachycardia (110) Gastrointestinal: Soft, Abnormal Bowel Sounds (hypoactive) Extremity: Non Tender, No Pedal Edema, Slow Capillary Refill ( none) Neurologic/Psychiatric: Other (obtunded, no pain reflex or ocular pain reflex.) Skin: cool, pallor Focused Exam Lactate Level 03/08/18 14:01: Lactic Acid Level 13.43*H Lactic Acid Level Laboratory Tests Test 03/08/18 14:01 Lactic Acid Level 13.43 MMOL/L (0.50-2.00) *H Progress/Results/Core Measures Suspected Sepsis SIRS Temperature: Pulse: Respiratory Rate: Laboratory Tests 03/08/18 14:01: White Blood Count 7.2 Blood Pressure / Mean: 03/08/18 14:01: Lactic Acid Level 13.43*H Laboratory Tests 03/08/18 14:01: Creatinine 2.83H, INR Comment 2.3H, Platelet Count 233, Total Bilirubin 0.6 Results/Orders Lab Results Laboratory Tests Test 03/08/18 13:34 03/08/18 13:58 03/08/18 14:01 03/08/18 14:13 Range/Units Glucometer 10 *L 121 H 98 70-110 MG/DL White Blood Count 7.2 4.3-11.0 10^3/uL Red Blood Count 4.40 4.35-5.85 10^6/uL Hemoglobin 12.9 11.5-16.0 G/DL Hematocrit 41 35-52 % Mean Corpuscular Volume 93 80-99 FL Mean Corpuscular Hemoglobin 29 25-34 PG Mean Corpuscular Hemoglobin Concent 31 L 32-36 G/DL Red Cell Distribution Width 19.8 H 10.0-14.5 % Platelet Count 233 130-400 10^3/uL Mean Platelet Volume 10.6 H 7.4-10.4 FL Neutrophils (%) (Auto) 84 H 42-75 % Lymphocytes (%) (Auto) 11 L 12-44 % Monocytes (%) (Auto) 5 0-12 % Eosinophils (%) (Auto) 0 0-10 % Basophils (%) (Auto) 1 0-10 % Neutrophils # (Auto) 6.0 1.8-7.8 X 10^3 Lymphocytes # (Auto) 0.8 L 1.0-4.0 X 10^3 Monocytes # (Auto) 0.3 0.0-1.0 X 10^3 Eosinophils # (Auto) 0.0 0.0-0.3 10^3/uL Basophils # (Auto) 0.1 0.0-0.1 10^3/uL Prothrombin Time 25.4 H 12.2-14.7 SEC INR Comment 2.3 H 0.8-1.4 Activated Partial Thromboplast Time 44 H 24-35 SEC Sodium Level 136 135-145 MMOL/L Potassium Level 6.1 H 3.6-5.0 MMOL/L Chloride Level 99 98-107 MMOL/L Carbon Dioxide Level 15 L 21-32 MMOL/L Anion Gap 22 H 5-14 MMOL/L Blood Urea Nitrogen 32 H 7-18 MG/DL Creatinine 2.83 H 0.60-1.30 MG/DL Estimat Glomerular Filtration Rate 16 BUN/Creatinine Ratio 11 Glucose Level 144 H 70-105 MG/DL Lactic Acid Level 13.43 *H 0.50-2.00 MMOL/L Calcium Level 8.4 L 8.5-10.1 MG/DL Corrected Calcium 9.9 8.5-10.1 MG/DL Total Bilirubin 0.6 0.1-1.0 MG/DL Aspartate Amino Transf (AST/SGOT) 93 H 5-34 U/L Alanine Aminotransferase (ALT/SGPT) 16 0-55 U/L Alkaline Phosphatase 167 H 40-136 U/L Troponin I < 0.30 <0.30 NG/ML Total Protein 4.9 L 6.4-8.2 GM/DL Albumin 2.1 L 3.2-4.5 GM/DL Smear Scan My Orders Orders - ANGELINA RIDDLE D50w (Emergency) Syringe (Dextrose 50% 5 (03/08/18 13:45) Saline Lock/Iv-Start (03/08/18 13:36) Ns Iv 1000 Ml (Sodium Chloride 0.9%) (03/08/18 13:36) D50w (Emergency) Syringe (Dextrose 50% 5 (03/08/18 13:33) Cbc With Automated Diff (03/08/18 13:39) Comprehensive Metabolic Panel (03/08/18 13:39) Blood Culture (03/08/18 13:39) Sputum Culture (03/08/18 13:39) Urinalysis (03/08/18 13:39) Urine Culture (03/08/18 13:39) Protime With Inr (03/08/18 13:39) Partial Thromboplastin Time (03/08/18 13:39) Chest 1 View, Ap/Pa Only (03/08/18 13:39) Saline Lock/Iv-Start (03/08/18 13:39) Saline Lock/Iv-Start (03/08/18 13:39) Ekg Tracing (03/08/18 13:39) Troponin I (03/08/18 13:39) Vital Signs Adult Sepsis Patie Q15M (03/08/18 13:39) O2 (03/08/18 13:39) Remove Rings In Anticipation O (03/08/18 13:39) Lactic Acid Analyzer (03/08/18 13:39) Cefepime Injection (Maxipime Injection) (03/08/18 13:45) Ekg Tracing (03/08/18 14:16) Continuous Ekg Monitoring (03/08/18 14:16) Accucheck Stat ONCE (03/08/18 14:19) Medications Given in ED Current Medications Medications Dose Ordered Sig/Ivet Route Start Time Stop Time Status Last Admin Dose Admin Cefepime HCl 1000 mg/Sodium Chloride 50 ml @ 100 mls/hr ONCE ONCE IV 03/08/18 13:45 03/08/18 14:14 DC 03/08/18 14:09 100 MLS/HR Dextrose 50 ml STK-MED ONCE .ROUTE 03/08/18 13:33 03/08/18 13:38 DC 03/08/18 13:38 50 ML Vital Signs/I&O 03/08/18 03/08/18 13:42 13:42 Temp 97.9 Pulse 92 Resp 10 B/P (MAP) 94/49 (64) Pulse Ox 91 92 O2 Delivery Nasal Cannula Nasal Cannula O2 Flow Rate 4.00 4.00 Capillary Refill : Progress Note #1: Time: 13:51 Progress Note Spoke to the son is the power of litigation attorney, colin robb, and he does not want us to do any heroic measures but he is on his way down from [place] and he would be okay with us checking labs. He is DO NOT RESUSCITATE but it is not ready to go comfort cares until he sees the patient. Progress Note #2: Time: 14:21 Progress Note The patient's monitor was reading 170 to 190s heart rate and there was a bit of a sawtooth pattern on the telemetry but the EKG demonstrated a sinus rhythm by the time we got it. Running some fluids and the blood pressures around 100 systolic. Progress Note #3: Time: 14:35 Progress Note Called and talked to the patient's son who is the power of litigation attorney again and at this time the son elects comfort cares. He says he was just talking her last Tuesday and she admitted clear that she did not want any heroic procedures to keep her alive, machines or medicines. The caregiver from the long-term was calling to see if she is elected a hospice company if not we will let her up with one and she should be good to return to the long-term on comfort cares only. ECG Initial ECG Impression Date: Mar 08, 2018 Initial ECG Impression Time: 14:14 Initial ECG Rate: 91 Initial ECG Rhythm: Normal Sinus Initial ECG Intervals: Normal Initial ECG Impression: Normal, Nonspecific Changes Initial ECG Comparisson: Unchanged Comment No ST elevation or depression. Sinus rhythm. Departure Impression Primary Impression: Need for comfort care Disposition: 01 HOME, SELF-CARE Condition: Stable Departure-Patient Inst. Decision time for Depature: 15:38 Referrals: TU SANCHEZ DO (PCP/Family) Primary Care Physician Patient Instructions: Palliative Care Copy Copies To 1: TU SANCHEZ TITUS J Mar 08, 2018 13:48
[2018-03-08 14:21] LABS: BASOPHILS # (AUTO) 0.1 10^3/uL (0.0-0.1); BASOPHILS % (AUTO) 1 % (0-10); EOSINOPHILS % (AUTO) 0 % (0-10); HEMATOCRIT 41 % (35-52); HEMOGLOBIN 12.9 G/DL (11.5-16.0); LYMPHOCYTES # (AUTO) 0.8 X 10^3 (1.0-4.0); LYMPHOCYTES % (AUTO) 11 % (12-44); MEAN CORPUSCULAR HEMOGLOBIN 29 PG (25-34); MEAN CORPUSCULAR HGB CONC 31 G/DL (32-36); MEAN CORPUSCULAR VOLUME 93 FL (80-99); MEAN PLATELET VOLUME 10.6 FL (7.4-10.4); MONOCYTES # (AUTO) 0.3 X 10^3 (0.0-1.0); MONOCYTES % (AUTO) 5 % (0-12); NEUTROPHILS % (AUTO) 84 % (42-75); PLATELET COUNT 233 10^3/uL (130-400); RED CELL DISTRIBUTION WIDTH 19.8 % (10.0-14.5); WHITE BLOOD COUNT 7.2 10^3/uL (4.3-11.0)
[2018-03-08 14:35] LABS: INR 2.3 (0.8-1.4); PROTHROMBIN TIME PATIENT 25.4 SEC (12.2-14.7)
[2018-03-08 14:41] LABS: ALANINE AMINOTRANSFERASE 16 U/L (0-55); ALBUMIN 2.1 GM/DL (3.2-4.5); ALKALINE PHOSPHATASE 167 U/L (40-136); BILIRUBIN,TOTAL 0.6 MG/DL (0.1-1.0); BUN/CREATININE RATIO 11; CALCIUM 8.4 MG/DL (8.5-10.1); CARBON DIOXIDE 15 MMOL/L (21-32); CHLORIDE 99 MMOL/L (98-107); CREATININE SERUM 2.83 MG/DL (0.60-1.30); GFR ESTIMATED 16; GLUCOSE 144 MG/DL (70-105); POTASSIUM 6.1 MMOL/L (3.6-5.0); SODIUM 136 MMOL/L (135-145); TOTAL PROTEIN 4.9 GM/DL (6.4-8.2)
[2018-03-08] MEDS ORDERED: morphine INJ 10 MG/ML 1ML (SYR OR VIAL) ONE (15:42)
[2018-03-08] MEDS ORDERED: morphine INJ 10 MG/ML 1ML (SYR OR VIAL) IVP ONE (16:00)
[2018-03-08 16:40] VITALS: BP 94/49
== END 2018-03-08 16:40 | disposition home or self-care (01) ==
LOC: EDUNIT# 13:28 → ER 13:29
DX: R53.83 Other fatigue (principal); I25.10 Atherosclerotic heart disease of native coronary artery without angina pectoris; I25.2 Old myocardial infarction; E78.00 Pure hypercholesterolemia, unspecified; I10 Essential (primary) hypertension; F03.90 Unspecified dementia, unspecified severity, without behavioral disturbance, psychotic disturbance, mood disturbance, and anxiety; E11.9 Type 2 diabetes mellitus without complications; Z51.5 Encounter for palliative care; Z87.19 Personal history of other diseases of the digestive system; Z90.89 Acquired absence of other organs; Z79.82 Long term (current) use of aspirin; Z79.4 Long term (current) use of insulin; Z79.51 Long term (current) use of inhaled steroids; Z87.891 Personal history of nicotine dependence; Z95.5 Presence of coronary angioplasty implant and graft; Z98.890 Other specified postprocedural states
CPT/HCPCS: 36415; 80053; 82962; 83605; 84484; 85025; 85610; 85730; 87040; 93005; 96361; 96365; 96375